=== PATIENT | female | born 1965 | race Caucasian/White ===

== ENCOUNTER 2016-07-20 17:09 | Inpatient (IN) | payer OTHER ==
[~2016-07-20] VITALS: Ht 152.4 cm; Wt 40.4 kg
[~2016-07-20 17:09] MED LIST: ADVAIR 100/501 EA INH; ADVAIR 250/501 EA INH; ALBUTEROL0.09 MG/A2 IH; ALBUTEROL2.5 MG/0.5 INH; AMOXICILLIN500 MG PO; ANTIVERT/2525 MG PO; ASPIRIN CHEWABL81 MG PO; Albuterol Sulfat3 M2 IH; BRIN10TA PO; CARAFATE1 G1 PO; CIPROFLOXACIN500 MG PO; CLOPIDOGREL75 MG PO; COLACE100 MG PO; COMPAZINE10 M1 PO; DAYPRO600 M1 PO; DELTASONE10 MG PO; DOXYCYCLINE100 M3 PO; EFFEXOR; EFFEXOR XR150 M1 PO; EFFEXOR XR150 MG PO; EFFEXOR XR37.5 M1 PO; EFFEXOR50 MG PO; FIORICET 325 MG1 TAB PO; FLAGYL500 MG PO; FLONASE ALLERG9.9 ML NAS; Fioricet 325 MG1 TAB PO; IBU-4400 MG PO; K-Dur 20MEQ20 MEQ PO; KEFLEX500 MG PO; KLONOPIN1 M1 PO; KLONOPIN1 MG; LIDEX 0.05% CRE15 GM T; LINZESS 145 MCG; LINZESS145 MC1 PO; LISINOPRIL20 MG PO; LOMOTIL 0.025 M1 TA1 PO; MARINOL10 MG PO; MARINOL5 MG PO; MEDROL DOSEPAK4 MG PO; MOTRIN800 MG PO; NEURONTIN400 MG PO; NEURONTIN600 MG PO; OXYCODONE HCL10 M1 PO; PHENERGAN12.5 M1 PO; PHENERGAN25 M1 PO; PLAVIX75 M1 PO; PREDNISONE10 MG PO; PRILOSEC20 M1 PO; PROAIR HFA0.09 MG/AC IH; PROVENTIL0.09 MG/AC IH; REGLAN10 M1 PO; ROBAXIN750 MG PO; ROBITUSSIN AC 110 ML PO; ROBITUSSIN-AC 160 ML PO; SPIRIVA 5 CAPS18 MCG INH; SPIRIVA18 MCG PO; STRESS PO; TESSALON PERLE100 MG PO; TOPROL XL25 MG PO; TRAMADOL HCL50 MG PO; TRAZODONE100 MG PO; ULTRAM50 MG PO; VICODIN 5/500 505 MG PO; VICODIN 500 MG-1 TAB PO; VITAMIN D50000 I3 PO; WARFARIN SODIUM1 MG PO; WYMOX500 MG PO; ZITHROMAX Z PA250 MG PO; ZITHROMAX250 MG PO; ZOFRAN ODT4 MG SL; ZOFRAN4 MG PO; ZOFRAN8 M1 PO; ZYPREXA20 MG; ZYPREXA20 MG PO; [UNRECOGNIZED DRUG - OTHER] PO
[2016-07-20 17:19] VITALS: BP 128/76
[2016-07-20 18:01] LABS: BASO % 0.2 % (0.0-1.0); HEMATOCRIT 36.9 % (37.0-47.0); HEMOGLOBIN 12.9 g/dl (12.0-16.0); LYMPH # 0.6 10*3/uL (1.3-4.4); LYMPH % 9.6 % (27.0-41.0); MEAN CELL VOLUME 92.3 fl (81.0-99.0); MEAN CORPUSCULAR HGB 32.3 pg (27.0-31.0); MEAN PLATELET VOLUME 9.9 fl (9.6-12.3); MONO # 0.1 10*3/uL (0.1-1.0); NEUT # 5.8 10*3/uL (2.3-7.9); NEUT % 87.9 % (47.0-73.0); PLATELET COUNT AUTOMATED 228 10*3/uL (130-400); RED CELL DISTRI WIDTH 15.4 % (0-14.5); WHITE BLOOD COUNT 6.5 10*3/uL (4.8-10.8)
[2016-07-20 18:12] LABS: PROTHROMBIN TIME 10.4 SECONDS (9.0-12.4)
[2016-07-20 18:19] LABS: ALBUMIN 4.2 gm/dl (3.1-4.5); ALKALINE PHOSPHATASE 102 U/L (45-117); BILIRUBIN, TOTAL 0.8 mg/dl (0.2-1.0); BUN 10 mg/dl (7-24); C-REACTIVE PROTEIN < 0.29 MG/DL (0-0.3); CARBON DIOXIDE 27 mmol/L (21-32); CHLORIDE 100 mmol/L (98-107); CKMB 0.8 ng/ml (0.5-3.6); CPK 34 U/L (26-192); EST GLOM FILT AFRICAN AMERICAN > 60 ml/min; GLUCOSE 147 mg/dL (65-99); MAGNESIUM 1.6 mg/dL (1.5-2.1); POTASSIUM 3.3 mmol/L (3.5-5.1); SGOT/AST 23 IU/L (3-35); SGPT/ALT 20 U/L (12-78); SODIUM 141 mmol/L (136-145); TOTAL PROTEIN 7.4 gm/dL (6.4-8.2); TROPONIN I < 0.015 ng/ml (<0.045)
[2016-07-20 19:20] LABS: BILIRUBIN NEGATIVE (NEGATIVE); BLOOD NEGATIVE (NEGATIVE); CLARITY SL CLOUDY (CLEAR); COLOR YELLOW (YELLOW); GLUCOSE TRACE (NEGATIVE); KETONE 3+ (NEGATIVE); LEUKO ESTERASE NEGATIVE (NEGATIVE); NITRITE NEGATIVE (NEGATIVE); PH 7.5 (5.0-9.0); PROTEIN TRACE (NEGATIVE); UROBILINOGEN 0.2 E.U./dl (0.2-1.0)
[2016-07-20 19:26] LABS: BACTERIA 1+; EPITHELIAL CELLS 20-25; URINE REFLEX COMMENT NO (NO); WBC 0-2 wbc/hpf (0-5)
[2016-07-20 20:00] VITALS: BP 146/81
[2016-07-20 22:42] VITALS: BP 115/85
[2016-07-20 23:00] VITALS: BP 108/81
[2016-07-20] MEDS ORDERED: PROAIR HFA8.5 GM INH (23:07)
[2016-07-20] MEDS ORDERED: ENSURE LIQUID237 ML PO (23:08)
[2016-07-20] MEDS ORDERED: STRESS PO (23:10)
[2016-07-20] MEDS ORDERED: ZINC PO (23:10)
[2016-07-20] MEDS ORDERED: NATURE'S BLEND F1 MG PO (23:10)
[2016-07-20] MEDS ORDERED: Ventolin 02.5 MG/3 M INH (23:11)
[2016-07-20] MEDS ORDERED: Lopressor25 MG PO (23:14)
[2016-07-20] MEDS ORDERED: ACETAMINOPHEN/O1 TA1 PO (23:16)
[2016-07-20] MEDS ORDERED: EMLA 2.5% 30GM30 GM T (23:17)
[2016-07-20] MEDS ORDERED: NOVAPLUS LIDOCAINE5% TP (23:18)
[2016-07-21 06:26] LABS: BASO % 0.1 % (0.0-1.0); HEMATOCRIT 35.9 % (37.0-47.0); HEMOGLOBIN 12.6 g/dl (12.0-16.0); LYMPH # 0.9 10*3/uL (1.3-4.4); LYMPH % 12.7 % (27.0-41.0); MEAN CELL VOLUME 92.3 fl (81.0-99.0); MEAN CORPUSCULAR HGB 32.4 pg (27.0-31.0); MEAN CORPUSCULAR HGB CONC 35.1 g/dl (33.0-37.0); MEAN PLATELET VOLUME 10.2 fl (9.6-12.3); MONO # 0.1 10*3/uL (0.1-1.0); MONO % 1.4 % (3.0-9.0); NEUT % 85.5 % (47.0-73.0); PLATELET COUNT AUTOMATED 220 10*3/uL (130-400); RED BLOOD COUNT 3.89 10*6/uL (4.10-5.10); RED CELL DISTRI WIDTH 15.5 % (0-14.5)
[2016-07-21 07:01] LABS: ALKALINE PHOSPHATASE 107 U/L (45-117); BILIRUBIN, TOTAL 0.8 mg/dl (0.2-1.0); BUN 7 mg/dl (7-24); CARBON DIOXIDE 27 mmol/L (21-32); CHLORIDE 100 mmol/L (98-107); CHOLESTEROL 218 mg/dL (<200); EST GLOM FILT AFRICAN AMERICAN > 60 ml/min; GLUCOSE 114 mg/dL (65-99); HDL CHOLESTEROL 84 mg/dl (40-60); LDL CHOLESTEROL 111 mg/dL (9-159); MAGNESIUM 1.3 mg/dL (1.5-2.1); PHOSPHOROUS 2.5 mg/dL (2.5-4.9); POTASSIUM 3.5 mmol/L (3.5-5.1); SGOT/AST 19 IU/L (3-35); SGPT/ALT 22 U/L (12-78); SODIUM 137 mmol/L (136-145); TOTAL PROTEIN 7.6 gm/dL (6.4-8.2); TRIGLYCERIDES 114 mg/dl (<150); VLDL CHOLESTEROL 23 mg/dL (6-40)
[2016-07-21 07:02] LABS: HEMOGLOBIN A1c 5.7 % (4.8-5.6)
[2016-07-21 07:07] LABS: PROTHROMBIN TIME 10.2 SECONDS (9.0-12.4)
[2016-07-21 07:57] LABS: VITAMIN D, 25-HYDROXY 47.9 ng/mL (30-100)
[2016-07-21 08:00] VITALS: BP 156/72
[2016-07-21 08:00] LABS: FOLIC ACID > 24.00 ng/mL (>5.38)
[2016-07-21 12:00] VITALS: BP 120/79
[2016-07-21 16:00] VITALS: BP 128/80
[2016-07-21 20:00] VITALS: BP 146/81
[2016-07-22] VITALS: BP 153/81
[2016-07-22 08:00] VITALS: BP 134/88
[2016-07-22 12:00] VITALS: BP 144/69
[2016-07-22] MEDS ORDERED: PERCOCET 325 MG1 TA7 PO (15:57)
[2016-07-22 16:00] VITALS: BP 125/79
[2016-07-22 20:00] VITALS: BP 158/71
[2016-07-23] VITALS: BP 152/89
[2016-07-23 06:04] LABS: BASO % 0.6 % (0.0-1.0); EOS % 0.3 % (1.0-4.0); HEMATOCRIT 32.7 % (37.0-47.0); HEMOGLOBIN 11.5 g/dl (12.0-16.0); LYMPH # 1.5 10*3/uL (1.3-4.4); LYMPH % 41.7 % (27.0-41.0); MEAN CELL VOLUME 92.9 fl (81.0-99.0); MEAN CORPUSCULAR HGB 32.7 pg (27.0-31.0); MEAN CORPUSCULAR HGB CONC 35.2 g/dl (33.0-37.0); MEAN PLATELET VOLUME 10.3 fl (9.6-12.3); MONO # 0.1 10*3/uL (0.1-1.0); MONO % 3.4 % (3.0-9.0); NEUT # 1.9 10*3/uL (2.3-7.9); NEUT % 53.7 % (47.0-73.0); PLATELET COUNT AUTOMATED 182 10*3/uL (130-400); RED BLOOD COUNT 3.52 10*6/uL (4.10-5.10); RED CELL DISTRI WIDTH 14.7 % (0-14.5); WHITE BLOOD COUNT 3.6 10*3/uL (4.8-10.8)
[2016-07-23 06:26] LABS: EST GLOM FILT AFRICAN AMERICAN > 60 ml/min
[2016-07-23 08:00] VITALS: BP 130/76; BP 93/66
[2016-07-23 12:00] VITALS: BP 126/32
[2016-07-23 16:00] VITALS: BP 117/66
[2016-07-23 20:00] VITALS: BP 137/65
[2016-07-24 00:11] VITALS: BP 114/60
[2016-07-24 05:58] LABS: BASO % 0.6 % (0.0-1.0); EOS % 1.2 % (1.0-4.0); LYMPH # 1.3 10*3/uL (1.3-4.4); LYMPH % 37.1 % (27.0-41.0); MEAN CORPUSCULAR HGB 31.9 pg (27.0-31.0); MEAN CORPUSCULAR HGB CONC 34.7 g/dl (33.0-37.0); MEAN PLATELET VOLUME 9.8 fl (9.6-12.3); MONO # 0.1 10*3/uL (0.1-1.0); MONO % 3.5 % (3.0-9.0); PLATELET COUNT AUTOMATED 141 10*3/uL (130-400); RED BLOOD COUNT 2.88 10*6/uL (4.10-5.10); RED CELL DISTRI WIDTH 14.6 % (0-14.5); WHITE BLOOD COUNT 3.4 10*3/uL (4.8-10.8)
[2016-07-24 06:01] LABS: HEMATOCRIT 26.5 % (37.0-47.0); HEMOGLOBIN 9.2 g/dl (12.0-16.0)
[2016-07-24 08:00] VITALS: BP 132/66
[2016-07-24 12:00] VITALS: BP 116/57
[2016-07-24 16:00] VITALS: BP 151/78
[2016-07-24 20:00] VITALS: BP 132/72
[2016-07-25] VITALS: BP 103/49
[2016-07-25 06:50] LABS: BASO % 0.7 % (0.0-1.0); EOS % 1.4 % (1.0-4.0); HEMATOCRIT 25.5 % (37.0-47.0); HEMOGLOBIN 8.7 g/dl (12.0-16.0); LYMPH # 1.2 10*3/uL (1.3-4.4); LYMPH % 42.9 % (27.0-41.0); MEAN CELL VOLUME 94.4 fl (81.0-99.0); MEAN CORPUSCULAR HGB 32.2 pg (27.0-31.0); MEAN CORPUSCULAR HGB CONC 34.1 g/dl (33.0-37.0); MEAN PLATELET VOLUME 10.1 fl (9.6-12.3); MONO # 0.2 10*3/uL (0.1-1.0); MONO % 5.2 % (3.0-9.0); NEUT # 1.4 10*3/uL (2.3-7.9); NEUT % 49.5 % (47.0-73.0); PLATELET COUNT AUTOMATED 154 10*3/uL (130-400); RED CELL DISTRI WIDTH 14.9 % (0-14.5); WHITE BLOOD COUNT 2.9 10*3/uL (4.8-10.8)
[2016-07-25 08:00] VITALS: BP 114/62
[2016-07-25] MEDS ORDERED: CIPRO500 MG PO (10:53)
[2016-07-25] MEDS ORDERED: FLAGYL500 MG PO (10:53)
[2016-07-25 12:00] VITALS: BP 101/56
== END 2016-07-25 12:00 | disposition home or self-care (01) | DRG 872 ==
LOC: ED 17:09 → EDHOLD 21:21 → 5E 21:21
PROVIDERS: Emergency Medicine; Family Medicine; Internal Medicine; Internal Medicine Hospice and Palliative Medicine
DX: A41.9 Sepsis, unspecified organism (principal); C34.11 Malignant neoplasm of upper lobe, right bronchus or lung; E44.0 Moderate protein-calorie malnutrition; K51.00 Ulcerative (chronic) pancolitis without complications; E83.42 Hypomagnesemia; F32.9 Major depressive disorder, single episode, unspecified; D64.9 Anemia, unspecified; J44.9 Chronic obstructive pulmonary disease, unspecified; Z68.1 Body mass index [BMI] 19.9 or less, adult; E87.6 Hypokalemia; F43.10 Post-traumatic stress disorder, unspecified; R82.4 Acetonuria; D72.810 Lymphocytopenia; R73.9 Hyperglycemia, unspecified; F41.9 Anxiety disorder, unspecified; M19.90 Unspecified osteoarthritis, unspecified site; F17.210 Nicotine dependence, cigarettes, uncomplicated; K21.9 Gastro-esophageal reflux disease without esophagitis; Z92.21 Personal history of antineoplastic chemotherapy; Z90.710 Acquired absence of both cervix and uterus; Z82.49 Family history of ischemic heart disease and other diseases of the circulatory system; Z71.6 Tobacco abuse counseling; Z82.3 Family history of stroke; Z88.2 Allergy status to sulfonamides; Z88.8 Allergy status to other drugs, medicaments and biological substances; Z79.899 Other long term (current) drug therapy

== ENCOUNTER → 2016-07-30 | Outpatient (CLI) | payer OTHER ==
[~2016-07-30] MED LIST changes: +ACETAMINOPHEN/O1 TA1 PO; +CIPRO500 MG PO; +EMLA 2.5% 30GM30 GM T; +ENSURE LIQUID237 ML PO; +Lopressor25 MG PO; +NATURE'S BLEND F1 MG PO; +NOVAPLUS LIDOCAINE5% TP; +PERCOCET 325 MG1 TA7 PO; +PROAIR HFA8.5 GM INH; +Ventolin 02.5 MG/3 M INH; +ZINC PO
[2016-07-30 18:08] LABS: HEMATOCRIT 36.2 % (37.0-47.0); HEMOGLOBIN 12.1 g/dl (12.0-16.0); MEAN CELL VOLUME 100.6 fl (81.0-99.0); MEAN CORPUSCULAR HGB 33.6 pg (27.0-31.0); MEAN CORPUSCULAR HGB CONC 33.4 g/dl (33.0-37.0); MEAN PLATELET VOLUME 9.6 fl (9.6-12.3); PLATELET COUNT AUTOMATED 247 10*3/uL (130-400); RED CELL DISTRI WIDTH 17.1 % (0-14.5); WHITE BLOOD COUNT 3.5 10*3/uL (4.8-10.8)
[2016-07-30 20:09] LABS: LYMPHOCYTE # 2.4 10*3/uL (1.3-4.4); MONOCYTE # 0.4 10*3/uL (0.1-1.0); NEUTROPHIL # 0.7 10*3/uL (2.3-7.9); NEUTROPHILS 21 % (47-73); PLATELET SUFFICIENCY NORMAL (NORMAL); POLYCHROMASIA SLIGHT; TOTAL CELLS COUNTED 100 #CELLS
== END | disposition home or self-care (01) ==
LOC: LAB 17:07
PROVIDERS: Internal Medicine Hematology & Oncology
DX: C34.11 Malignant neoplasm of upper lobe, right bronchus or lung (principal)

== ENCOUNTER → 2016-08-13 | Outpatient (CLI) | payer OTHER ==
[2016-08-13 17:16] LABS: BASO % 0.4 % (0.0-1.0); EOS # 0.1 10*3/uL (0.0-0.4); EOS % 1.1 % (1.0-4.0); HEMATOCRIT 37.2 % (37.0-47.0); HEMOGLOBIN 12.5 g/dl (12.0-16.0); LYMPH # 2.4 10*3/uL (1.3-4.4); LYMPH % 52.7 % (27.0-41.0); MEAN CELL VOLUME 100.8 fl (81.0-99.0); MEAN CORPUSCULAR HGB 33.9 pg (27.0-31.0); MEAN CORPUSCULAR HGB CONC 33.6 g/dl (33.0-37.0); MEAN PLATELET VOLUME 9.5 fl (9.6-12.3); MONO # 0.3 10*3/uL (0.1-1.0); MONO % 6.5 % (3.0-9.0); NEUT # 1.8 10*3/uL (2.3-7.9); NEUT % 39.1 % (47.0-73.0); PLATELET COUNT AUTOMATED 195 10*3/uL (130-400); RED BLOOD COUNT 3.69 10*6/uL (4.10-5.10); RED CELL DISTRI WIDTH 15.6 % (0-14.5); WHITE BLOOD COUNT 4.6 10*3/uL (4.8-10.8)
[2016-08-13 17:31] LABS: ALBUMIN 3.7 gm/dl (3.1-4.5); ALKALINE PHOSPHATASE 91 U/L (45-117); BILIRUBIN, TOTAL 0.2 mg/dl (0.2-1.0); BUN 11 mg/dl (7-24); CARBON DIOXIDE 33 mmol/L (21-32); CHLORIDE 104 mmol/L (98-107); EST GLOM FILT AFRICAN AMERICAN > 60 ml/min; GLUCOSE 69 mg/dL (65-99); POTASSIUM 3.9 mmol/L (3.5-5.1); SGOT/AST 14 IU/L (3-35); SGPT/ALT 13 U/L (12-78); SODIUM 144 mmol/L (136-145); TOTAL PROTEIN 7.1 gm/dL (6.4-8.2)
== END | disposition home or self-care (01) ==
LOC: LAB 16:40
PROVIDERS: Internal Medicine Hematology & Oncology
DX: C34.11 Malignant neoplasm of upper lobe, right bronchus or lung (principal)

== ENCOUNTER 2016-08-26 21:03 | Emergency (ER) | payer OTHER ==
[~2016-08-26] VITALS: Ht 152.4 cm; Wt 39.9 kg
[2016-08-26] MEDS ORDERED: ONDANSETRON HYDR4 MG PO (21:38)
[2016-08-26 22:06] LABS: BASO % 0.2 % (0.0-1.0); HEMATOCRIT 41.3 % (37.0-47.0); HEMOGLOBIN 14.1 g/dl (12.0-16.0); LYMPH # 0.6 10*3/uL (1.3-4.4); LYMPH % 12.8 % (27.0-41.0); MEAN CORPUSCULAR HGB 33.8 pg (27.0-31.0); MEAN CORPUSCULAR HGB CONC 34.1 g/dl (33.0-37.0); MEAN PLATELET VOLUME 9.3 fl (9.6-12.3); MONO # 0.2 10*3/uL (0.1-1.0); MONO % 4.6 % (3.0-9.0); NEUT # 3.9 10*3/uL (2.3-7.9); PLATELET COUNT AUTOMATED 323 10*3/uL (130-400); RED BLOOD COUNT 4.17 10*6/uL (4.10-5.10); RED CELL DISTRI WIDTH 14.9 % (0-14.5); WHITE BLOOD COUNT 4.8 10*3/uL (4.8-10.8)
[2016-08-26 22:24] LABS: ALBUMIN 4.2 gm/dl (3.1-4.5); ALKALINE PHOSPHATASE 124 U/L (45-117); BILIRUBIN, TOTAL 0.3 mg/dl (0.2-1.0); BUN 8 mg/dl (7-24); CARBON DIOXIDE 27 mmol/L (21-32); CHLORIDE 104 mmol/L (98-107); EST GLOM FILT AFRICAN AMERICAN > 60 ml/min; GLUCOSE 144 mg/dL (65-99); POTASSIUM 3.8 mmol/L (3.5-5.1); SGOT/AST 20 IU/L (3-35); SGPT/ALT 19 U/L (12-78); SODIUM 141 mmol/L (136-145); TOTAL PROTEIN 7.9 gm/dL (6.4-8.2)
[2016-08-26] MEDS ORDERED: PHENERGAN25 MG R (22:54)
== END 2016-08-26 23:29 | disposition home or self-care (01) ==
LOC: ED 21:03
PROVIDERS: Nurse Practitioner Family
DX: R11.2 Nausea with vomiting, unspecified (principal); F17.210 Nicotine dependence, cigarettes, uncomplicated; F41.9 Anxiety disorder, unspecified; F32.9 Major depressive disorder, single episode, unspecified; K21.9 Gastro-esophageal reflux disease without esophagitis; I10 Essential (primary) hypertension; M19.90 Unspecified osteoarthritis, unspecified site; F12.10 Cannabis abuse, uncomplicated; Z88.1 Allergy status to other antibiotic agents; Z88.2 Allergy status to sulfonamides; Z79.899 Other long term (current) drug therapy

== ENCOUNTER → 2016-09-10 | Outpatient (CLI) | payer OTHER ==
[~2016-09-10] MED LIST changes: +ONDANSETRON HYDR4 MG PO; +PHENERGAN25 MG R
[2016-09-10 17:59] LABS: BASO % 0.5 % (0.0-1.0); EOS % 0.2 % (1.0-4.0); HEMATOCRIT 38.7 % (37.0-47.0); LYMPH # 2.2 10*3/uL (1.3-4.4); LYMPH % 55.4 % (27.0-41.0); MEAN CELL VOLUME 98.7 fl (81.0-99.0); MEAN CORPUSCULAR HGB 33.2 pg (27.0-31.0); MEAN CORPUSCULAR HGB CONC 33.6 g/dl (33.0-37.0); MEAN PLATELET VOLUME 9.9 fl (9.6-12.3); MONO # 0.1 10*3/uL (0.1-1.0); MONO % 2.7 % (3.0-9.0); NEUT # 1.6 10*3/uL (2.3-7.9); PLATELET COUNT AUTOMATED 221 10*3/uL (130-400); RED BLOOD COUNT 3.92 10*6/uL (4.10-5.10); RED CELL DISTRI WIDTH 13.5 % (0-14.5)
[2016-09-10 18:29] LABS: BUN 10 mg/dl (7-24); CHOLESTEROL 197 mg/dL (<200); EST GLOM FILT AFRICAN AMERICAN > 60 ml/min; HDL CHOLESTEROL 79 mg/dl (40-60); LDL CHOLESTEROL 96 mg/dL (9-159); TRIGLYCERIDES 109 mg/dl (<150); VLDL CHOLESTEROL 22 mg/dL (6-40)
== END | disposition home or self-care (01) ==
LOC: LAB 17:04
PROVIDERS: Internal Medicine Hematology & Oncology
DX: C34.11 Malignant neoplasm of upper lobe, right bronchus or lung (principal); F33.3 Major depressive disorder, recurrent, severe with psychotic symptoms; E55.9 Vitamin D deficiency, unspecified

== ENCOUNTER → 2016-11-05 | Outpatient (CLI) | payer OTHER | END | disposition home or self-care (01) | LOC: US 12:23 | DX: M79.604 Pain in right leg (principal) ==

== ENCOUNTER → 2016-12-19 | Outpatient (CLI) | payer OTHER | END | disposition home or self-care (01) | LOC: US 10:30 | DX: I73.9 Peripheral vascular disease, unspecified (principal); Z87.891 Personal history of nicotine dependence ==

== ENCOUNTER 2017-04-06 11:43 | Inpatient (IN) | payer OTHER ==
[~2017-04-06] VITALS: Ht 154.9 cm; Wt 41.3 kg
[2017-04-06] VITALS (7 sets, daily range): BP systolic 100–137; BP diastolic 64–94
--- NOTE | ~2017-04-06 | EKG ---
[place], [place] ELECTROCARDIOGRAM REPORT NAME: JUSTIN VERGARA UNIT #: [id number] ROOM: 520 DOCTOR: EPHRAIM REYES MD,AUDREY BIRTHDATE: [birth year] DOS: 04/10/2017 TIME: 10:42 a.m. Sinus tachycardia noted. Heart rate of 103 beats per minute with possible consideration of the LVH based on the chest leads. AUDREY YE MD CM:EKGRPT:ELECTROCARDIOGRAM REPORT 1819 [id number] AUDREY REYES MD
--- NOTE | ~2017-04-06 | PROC NOTE ---
[place], [place] PROCEDURE NOTE [id number] UNIT #: [id number] ROOM: 520 DOCTOR: EPHRAIM REYES MD,AUDREY BIRTHDATE: [birth year] DOS: 04/11/2017 PROCEDURE: Bronchoscopy note. PREOPERATIVE DIAGNOSES: The patient with severe nonresolving cough with current administered pneumonia and history of lung cancer. POSTOPERATIVE DIAGNOSES: Evidence of previous right upper lobectomy for the patient was noted with evidence of acute pneumonia, severe impaction and mucus plug and severe pneumonia involving the left endobronchial tree. PROCEDURE DESCRIPTION: Informed consent obtained for the patient. She was brought to the OR and placed in supine physician. Consultation administered by the Anesthesia Department. After achieving proper sedation, airway introduced into the mouth. Bronchoscope advanced to the airway into laryngeal area. Epiglottis and vocal cords were seen. The bronchoscope advanced to the vocal cord into tracheal lumen. Tracheal lumen shows moderate amount of bilious secretion suctioned out with the help of normal saline wash. After that, the bronchoscope further advanced to the fran level. The evidence of right upper lobectomy. Large amount of secretion for patient was present in the left endobronchial tree for this patient, which were noted quite purulent and impaction of the left upper lingula and lower lobe bronchi. All secretions suctioned out. Small amount of mucus impaction noted right middle and right lower lobe cleared of normal saline wash. No endobronchial obstructive lesions were noted. Procedure well tolerated by the patient without any difficulty. Postoperative finding will be discussed with the patient once the patient recovers the effects of acute sedation. AUDREY YE MD CM:PROCNOTE:PROCEDURE NOTE [id number] AUDREY REYES MD
--- NOTE | ~2017-04-06 | CON ---
[place], [place] REPORT OF CONSULTATION NAME: JUSTIN VERGARA [facility] #: [id number] UNIT #: [id number] ROOM: 520 DOCTOR: AUDREY STRICKLAND MD BIRTHDATE: [birth year] DOS: 04/07/2017 PULMONARY CONSULTATION, EVALUATION AND MANAGEMENT CONSULTATION REQUESTED BY: Hospitalist services. REASON FOR CONSULTATION: To assess the patient for current chest pain with the pneumonia and other abnormal respiratory symptoms. HISTORY OF PRESENT ILLNESS: This is a 52-year-old white female who is known to me with past history of non-small cell lung cancer of right upper lung, underwent surgical treatment previously complicated with MRSA pneumonia and a localized infection in the right upper chest treated with pigtail catheter insertion and the antibiotics. The patient presented to the hospital as the patient started with having increased symptoms of coughing, chest congestion, and shortness of breath for the past few days. The patient was also described symptoms of having significant pain which she described in the left side of the chest initially in the past, later on the lateral portion of the chest wall without any radiation. The pain is described as severe on scale of 1 to 10 up to 8. The pain was described to be worsened with the deep inspiratory effort. She denies symptoms of hemoptysis. The patient does report some symptoms of wheezing along with the symptoms as well. REVIEW OF SYSTEMS: CONSTITUTIONAL: She does complain of fatigue and tiredness and symptoms of fever or chills. Denies any symptoms of abnormal weight loss. EYES: Denies any burning, redness, or tenderness. EAR, NOSE, AND THROAT: No symptoms sore throat, hoarseness, otalgia, and postnasal drainage. CARDIOVASCULAR: Denies any anginal pain, edema or pain of the lower extremities. GASTROINTESTINAL: Denies any dysphagia, nausea, vomiting, diarrhea, abdominal pain, hematemesis, melena, or hematochezia. SKIN: Denies any lesions or rashes. Remaining systems were reviewed with the patient, they were noted all negative. PAST MEDICAL HISTORY: 1. History of centrilobular emphysema with COPD. 2. Uncomplicated severe persistent bronchial asthma. 3. PTSD. 4. Chronic migraine headache. 5. Bipolar disorder. 6. Irritable bowel syndrome. 7. Restless leg syndrome. 8. History of hypercoagulable disorder. 9. History of lung cancer, status post lobectomy in 2016. 10. Multiple abdominal surgeries, complicated after hysterectomy. PAST SURGICAL HISTORY: [place], [place] REPORT OF CONSULTATION [id number] UNIT #: [id number] ROOM: [facility] DOCTOR: AUDREY STRICKLAND MD BIRTHDATE: [birth year] 1. Peripheral artery intervention and iliac artery stent insertion. 2. Hysterectomy. 3. Several abdominal surgeries for the management of wound and others in the abdomen in the past. 4. Tubal ligation. 5. Tonsillectomy. 6. Traumatic pneumothorax after the fall on the right side. 7. Therapeutic bronchoscopy in the past. 8. CT-guided needle aspiration biopsy of the right upper lung pulmonary nodule in 2016. 9. Wedge resection of the right upper lung nodule noted as a non-small cell lung cancer in 2016 followed by left upper lobectomy that was done in [facility]. The patient did not require any further intervention. The patient has a lung cancer. The tumor was staged as T2a N0 Mx. 10. Pigtail catheter insertion and drainage of an abscess in the right upper lobe post-surgery in 2016 as well. SOCIAL HISTORY: The patient has 5 children. Smoking history was noted as teenager, pack of cigarettes per day and stated no smoking cigarettes recently. Denies history of alcohol use, illicit drug use. FAMILY HISTORY: The patient's mother at age of 65 years complication of acute stroke. Father at age 50 years complication related to acute myocardial infarction. MEDICATIONS: Current administered medication noted as use of vitamin D, methimazole, Neutra-Phos, lidocaine patch, multivitamin, folic acid, gabapentin, Effexor, Lovenox for DVT prophylaxis, omeprazole, Remeron, Plavix, Mucinex, Dulera, DuoNeb q. 4 hours, IV Levaquin, Robinul, Klonopin and other p.r.n. medications administration. DRUG ALLERGIES: 1. SULFA DRUGS. 2. IMITREX. PHYSICAL EXAMINATION: GENERAL: A 52 years old female who has been currently noted to be awake and alert without any distress, sitting on the bed. Height of 5 feet 1 inch, weight of 91 pounds, BMI 17.2. VITAL SIGNS: Normal temperature noted since admission, respiratory rate 18 to 22, heart rate of 97 to 135, sinus tachycardia which is resolved at this time. The blood pressure ranged between ____. The intake recorded as 1800 to 1900 mL in the past 24 hours, pulse ox saturation on room air was 92% saturation recorded. HEENT: Head was atraumatic. Eyes nonicterus. Oral mucosa moist. NECK: Supple. CARDIOVASCULAR: S1, S2 audible. LUNGS: Noted with scattered crackles in the left mid and lower lung was noted. There was no wheezing. ABDOMEN: Flat, soft, nontender. Bowel sounds present. There was no [place], [place] REPORT OF CONSULTATION NAME: JUSTIN VERGARA UNIT #: [id number] ROOM: 520 DOCTOR: AUDREY STRICKLAND MD BIRTHDATE: [birth year] tenderness. EXTREMITIES: Without any edema, clubbing, cyanosis. CENTRAL NERVOUS SYSTEM: Cranial nerves 2 to 12 intact. No focal deficit. MUSCULOSKELETAL: Noted without any acute deformities. SKIN: Visible skin with no lesions or rashes. LABORATORY DATA: CBC 04/06/2017, WBC count of 15.7, hemoglobin and hematocrit normal, platelet count was normal. Differential noted 81.9% neutrophils. The lactic acid 2.5. PT/PTT were noted normal yesterday on admission. The BMP on admission yesterday normal BUN, creatinine, glucose 144, total protein 8.5. D-dimer 3.01 recorded yesterday as well. The troponin normal yesterday. Influenza A and B, nasal washing antigen negative. CBC today, WBC count 11.3, hemoglobin 11.3, hematocrit 33.6, platelet count of 190,000. The BMP on 04/07/2017, BUN and creatinine was normal. Chest x-ray 1 view, which was done and reviewed personally from the PACS images as the CT scan of the chest was also personally reviewed shows postoperative changes noted in the right lung from the past right upper lobectomy with mild elevation of the hemidiaphragm; otherwise, no acute infiltration. The CTA of the chest was done that does not show any evidence of pulmonary embolism. Postoperative changes noted in the right upper lung as well. Patchy infiltration present in the right lower lobe as well as in the left lower lobe. The nodular appearance was noted with some irregularity as well. The abnormality was noted much marked on the left lower than the right lower lobe. IMPRESSION: 1. The patient has been currently admitted to the hospital with pleuritic chest pain with current abnormality, radiologically consistent with possibility of acute infection with patchy area of infiltration and distribution as well. There was no evidence of pulmonary embolism. 2. Past history of right upper lobectomy for the non-small cell lung cancer, stage 1, as moderately differentiated adenocarcinoma with the total size measured at that time 1.4 x 1 cm in size. The current nodular appearance for this patient's infection remains as one primary concern. However, the malignancy of metastatic cancer cannot be completely excluded and clearly for monitor for the current CT scan finding will be done in the future. Followup CT scan short-term to document the resolution. 3. History of chronic nicotine abuse with COPD and bronchial asthma, does not seem to have any acute exacerbation at the present time. 4. History of migraine headache and tobacco use, previously known as well. PLAN OF TREATMENT: Continue the current antibiotic, the patient has Levaquin. Obtain the urine for legionella antigen for this patient as well. Also get the workup for the vasculitis because the nodular appearance as the patient's part of the workup, other chronic infection, and assessment as well. Additional treatment changes need to be made based on progression of the illness. Order the sputum for Gram stain and culture as well. Supportive therapy, plan of management and other care and treatment. Usual treatment, all other supportive, plan of management as well. Monitor results of the blood cultures. Additional changes in the treatment will be done based on the progression of the illness. [place], [place] REPORT OF CONSULTATION NAME: GEN URSULAMALISSA Morse UNIT #: [id number] ROOM: [facility] DOCTOR: AUDREY STRICKLAND MD BIRTHDATE: [birth year] Thanks for allowing me to participate in the care of this patient. AUDREY YE MD CM:CONSTR:REPORT OF CONSULTATION 1703 04/08/17 0748 interface
--- NOTE | ~2017-04-06 | PR ---
[place], [place] PROGRESS NOTE NAME: JUSTIN VERGARA UNIT #: [id number] ROOM: 520 DOCTOR: EPHRAIM REYES MD,AUDREY BIRTHDATE: [birth year] DOS: 04/12/2017 SUBJECTIVE: She has been showing continued gradual reduction and improvement in respiratory symptom. Bronchoscopy done yesterday for the patient with reduction of the cough is noted, pain in the chest was still described intermittently. The pain was described in left side of the chest. OBJECTIVE: VITAL SIGNS: For the patient which were recorded, the patient showed the temperature noted as normal, respiratory rate 20, heart rate of 82, blood pressure 98/66, 122/69. The pulse oxygen saturation of the patient on room air was 95-96% saturation. HEENT: No acute change. NECK: Supple. CARDIOVASCULAR: S1, S2 audible. LUNGS: Crackles in the left lung base. There was no wheezing. ABDOMEN: Soft, nontender. EXTREMITIES: Without any acute edema. CENTRAL NERVOUS SYSTEM: Cranial nerves 2-12 intact. SKIN: No lesions or rashes. MUSCULOSKELETAL: Without any acute deformities. LABORATORY DATA: Gram stain bronchial washing from yesterday was reviewed, shows moderate white blood cell, few budding yeast, moderate growth of yeast isolation. Preliminary final culture results pending. Vancomycin trough level noted at 8.1, which is subtherapeutic. Blood culture from the 30th, no bacterial growth, final results. The CMP for the patient, BUN normal, creatinine normal. Albumin 2.8. CBC for the patient essentially noted as normal. IMPRESSION: 1. The patient with acute pneumonia for this patient with methicillin-resistant Staphylococcus aureus. 2. Obtained for the patient related to current acute pneumonia. 3. History of chronic obstructive pulmonary disease and bronchial asthma, chronic, remains stable. 4. Past history of nicotine dependence as well. PLAN OF MANAGEMENT: The patient will be switched to the Zyvox for the patient orally and if she tolerate ____ may be discharged home tomorrow morning depends on further improvement in symptom. Continue in the meantime other supportive plan of management and care. Vancomycin will be discontinued. Other supportive therapy, plan of management care plan. Usual treatment and other care. [place], [place] PROGRESS NOTE NAME: JUSTIN VERGARA UNIT #: [id number] ROOM: 520 DOCTOR: AUDREY STRICKLAND MD BIRTHDATE: [birth year] AUDREY YE MD CM:PNWENDY [id number] AUDREY REYES MD 04/13/17 0347 interface
--- NOTE | ~2017-04-06 | PR ---
[place], [place] PROGRESS NOTE NAME: JUSTIN VERGARA [facility] #: [id number] UNIT #: [id number] ROOM: 520 DOCTOR: EPHRAIM REYES MD,AUDREY BIRTHDATE: [birth year] DOS: 04/13/2017 SUBJECTIVE: She has a bronchoscopy that was done 2 days ago. Reduction of the respiratory symptoms have been noted. Chest pain has been improving, but not completely resolved. There were no symptoms of acute shortness of breath. OBJECTIVE: VITAL SIGNS: Normal temperature, respiratory rate 20, heart rate of 110, blood pressure 144/86. The pulse oxygen saturation recorded as 95% on room air. HEENT AND NECK: Supple. CARDIOVASCULAR: S1, S2 is audible. LUNGS: The patient was noted without any wheeze or crackles. ABDOMEN: Soft, nontender. EXTREMITIES: Without any edema. LABORATORY DATA: Chest x-ray of the patient done this morning shows minimal pleural fluid was noted with resolving pulmonary infiltration in the left lung. IMPRESSION: 1. Resolving acute pneumonia with MRSA with minimal pleural fluid of concern. 2. History of chronic obstructive pulmonary disease and chronic nicotine dependence. PLAN OF TREATMENT: The patient could be discharged home on oral Zyvox 600 mg b.i.d. for the next 10 days to complete the pneumonia. Outpatient followup in 2 weeks post-discharge for further assessment. Usual care. AUDREY YE MD CM:PNTRANS [id number] 5 AUDREY REYES MD 04/14/17 0436 interface
--- NOTE | ~2017-04-06 | PR ---
[place], [place] PROGRESS NOTE NAME: JUSTIN VERGARA UNIT #: [id number] ROOM: 520 DOCTOR: AUDREY STRICKLAND MD BIRTHDATE: [birth year] DOS: 04/11/2017 SUBJECTIVE: She was still noted with severe cough, which remains mostly nonproductive, but the chest pain reported in the left side of the chest. She is n.p.o. past midnight on bronchoscopy. There were no symptoms of hemoptysis. Denies edema or pain of the lower extremity, nausea, vomiting, diarrhea, dizziness. OBJECTIVE: VITAL SIGNS: Blood pressure recorded as 129/88, heart rate of 102 with sinus tachycardia, respirations 18 and temperature normal this morning. Pulse oxygen saturation recorded on room air as 94% saturation. HEENT: No acute abnormality. CARDIOVASCULAR: S1, S2 audible. LUNGS: The patient was noted with general reduction in the breath sounds bilaterally. There was no wheezing. ABDOMEN: Flat, soft, nontender. EXTREMITIES: No edema. CENTRAL NERVOUS SYSTEM: Cranial nerves 2-12 intact. SKIN: No lesions or rashes. MUSCULOSKELETAL: No deformities. LABORATORY DATA: The anti-Kandace 1 antibody was noted as negative. There were no other labs done in the last 24 hours. IMPRESSION: 1. The patient have been currently noted with acute pneumonia with MRSA with severe nonproductive cough with a history of chronic obstructive pulmonary disease. 2. History of lung cancer, moderately differentiated adenocarcinoma, status post right upper lobectomy as well. 3. The patient with a past history of nicotine use as well and multiple other medical problems. PLAN OF MANAGEMENT: Proceed with the bronchoscopy as planned for the assessment of the cough. Continue antibiotic, vancomycin. Routine labs were ordered for this patient since the patient is getting vancomycin to be starting from tomorrow morning for the next 3 days. Other supportive therapy, plan and management and care. Obtain a chest x-ray in a couple of days to reassess the pneumonia. Continuation other plan of management as in progress. Usual care, other supportive plan of care and treatments. [place], [place] PROGRESS NOTE NAME: JUSTIN VERGARA UNIT #: [id number] ROOM: 520 DOCTOR: AUDREY STRICKLAND MD BIRTHDATE: [birth year] AUDREY YE MD CM:PNTRANS 1302 22 AUDREY REYES MD 04/11/171822 interface
--- NOTE | ~2017-04-06 | PR ---
[place], [place] PROGRESS NOTE NAME: JUSTIN VERGARA [facility] #: [id number] UNIT #: [id number] ROOM: 520 DOCTOR: EPHRAIM REYES MD,AUDREY BIRTHDATE: [birth year] DOS: 04/10/2017 SUBJECTIVE: She has been still noted with significant pain. The patient was started on doxycycline yesterday in addition to continuation of the Levaquin. Cough has been noted with minimal sputum expectoration. The sputum culture for the patient was noted positive for MRSA. OBJECTIVE: VITAL SIGNS: For the patient, which has been recorded showed the temperature noted as normal, respiratory rate 16-18, heart rate 97-119, blood pressure 92/57 to 104/58. Intake for the patient recorded 910 mL and the output was not recorded. Pulse ox saturation was 98% saturation on room air. HEENT: Showed no new change. NECK: Supple. CARDIOVASCULAR: S1, S2 audible. LUNGS: Noted with crackles in the left lower lung. ABDOMEN: Soft and nontender. EXTREMITIES: Shows no edema, clubbing, or cyanosis. SKIN: No lesions or rashes. MUSCULOSKELETAL: No deformities. GENITOURINARY: Intact. LABORATORY DATA: Culture of sputum shows evidence of heavy growth of MRSA. The CBC this morning for this patient was noted with normal WBC count, hemoglobin, hematocrit, and platelet count. The sputum culture was taken on 04/07/2017. The CMP for the patient this morning, normal BUN and creatinine. Albumin of 2.6. Chest x-ray yesterday shows persistent area of consolidation in the right lower lobe. IMPRESSION: The patient who has been currently noted with finding consistent with acute pneumonia with MRSA with persistent chest pain. Cough has been noted significant without any sputum expectoration. Significant pain was noted with coughing. The patient is unable to clear out the sputum by mouth. PLAN OF TREATMENT: Discontinue all the other antibiotics. Start the patient on intravenous vancomycin. The bronchoscopy was planned to be done tomorrow morning. Risks and the benefit of the procedure has been discussed with the patient. She is agreeable for the procedure. Procedure will be done tomorrow morning. In the meantime, continue to maximize the other medical treatment as well. Usual care. Supportive therapy, plan of care and treatment. Usual medical management. [place], [place] PROGRESS NOTE NAME: JUSTIN VERGARA UNIT #: [id number] ROOM: 520 DOCTOR: EPHRAIM REYES MD,AUDREY BIRTHDATE: [birth year] AUDREY YE MD CM:PNTRANS [id number] AUDREY REYES MD 04/10/17 1210 interface
--- NOTE | ~2017-04-06 | PR ---
[place], [place] PROGRESS NOTE NAME: JUSTIN VERGARA [facility] #: [id number] UNIT #: [id number] ROOM: 520 DOCTOR: EPHRAIM REYES MD,AUDREY BIRTHDATE: [birth year] DOS: 04/08/2017 SUBJECTIVE: She has been noted comfortable at this time, but still noted pain in the chest with a cough described and small amount of sputum expectoration reported in the last 24 hours. Denies symptoms of hemoptysis. The patient denies any symptoms of wheezing. This afternoon and at the morning when the patient was seen, she has been sitting on the bed, holding the pillow against her chest ____ the patient to decrease the pain with the cough. OBJECTIVE: VITAL SIGNS: Normal temperature, respiratory rate of 20, heart rate of 112-94, blood pressure 108/61-120/71. Pulse oxygen saturation of the patient on room air 92% saturation recorded. HEENT: Showed no acute change. NECK: Supple. CARDIOVASCULAR: S1, S2 audible. LUNGS: The patient was noted with moderate decreased breath sounds, but no wheezing, no crackles were noted at present time. ABDOMEN: Soft, nontender. EXTREMITIES: Without any edema with no lesions or rashes. MUSCULOSKELETAL: No deformities. CENTRAL NERVOUS SYSTEM: Intact. LABORATORY DATA: The culture of the sputum preliminary showing normal jamaal from the 04/07/2017 with the Gram stain was noted with moderate white blood cells, few epithelial cells, few gram-positive cocci in pairs and rare gram-positive bacilli. ESR was noted elevated as 65. The BMP of the patient done this morning, normal BUN and creatinine. CBC 12.2, hemoglobin 11.4, hematocrit 34.4, platelet count noted as normal. IMPRESSION: 1. The patient who has been currently admitted to the hospital noted with past history of moderately differentiated adenocarcinoma of the right upper lung, status post lobectomy, currently treated with current nodular infiltration predominantly in the lower lungs, greater on the left and right-sided pleuritic chest pain with suspected diagnosis of acute pneumonia one of the differential. 2. The patient with history of chronic obstructive pulmonary disease and bronchial asthma without any evidence of acute exacerbation. PLAN OF MANAGEMENT: Monitor workup, which has been ordered for patient current pulmonary infiltration. The antibiotic will be continued previously, symptomatic management of pain to be continued. Bronchodilators. Monitor results of the sputum culture. Continue the Levaquin. The patient had a primary antibiotic. Change in the treatment we recommended based on progression of the illness. [place], [place] PROGRESS NOTE NAME: URSULAJUSTIN Morse UNIT #: [id number] ROOM: [facility] DOCTOR: AUDREY STRICKLAND MD BIRTHDATE: [birth year] AUDREY YE MD CM:PNTRANS [id number] AUDREY REYES MD 04/08/17 9569 interface
--- NOTE | ~2017-04-06 | PR ---
[place], [place] PROGRESS NOTE NAME: JUSTIN VERGARA UNIT #: [id number] ROOM: 520 DOCTOR: AUDREY STRICKLAND MD BIRTHDATE: [birth year] DOS: 04/09/2017 SUBJECTIVE: She is still complaining of pain in the chest noted with the cough with some sputum expectoration at times. Denies symptoms of hemoptysis. The shortness of breath has been noted to be absent at rest. Vital sign shows low-grade fever. The patient denies any symptoms of edema or pain of the lower extremities. Denies any symptoms of dizziness. OBJECTIVE: VITAL SIGNS: Temperature ____, respiratory rate 18, this morning heart rate 72, blood pressure of 114/68. The pulse ox saturation recorded 98% saturation. HEENT: Examination shows no acute change. Head was atraumatic. Eyes: No icterus. NECK: Supple. CARDIOVASCULAR: S1, S2 audible. LUNGS: The patient was noted without any wheezing or crackles at the present time. ABDOMEN: Soft, nontender. EXTREMITIES: The patient was noted without any acute edema. CENTRAL NERVOUS SYSTEM: Cranial nerves 2-12 intact. MUSCULOSKELETAL: No deformities. SKIN: No lesions or rashes. LABORATORY DATA: The patient's chest x-ray that I ordered this morning was done, PA lateral view shows postsurgical changes in the right upper lobe with acute infiltration was still noted in the left lower lobe with associated minimal pleural effusion. Culture of the sputum preliminary showing normal jamaal for the patient, sent to the lab on 04/07/2017. PLAN OF MANAGEMENT: The patient's antibiotic spectrum. The patient will be added with the additional coverage for the possibility of MRSA infection can be excluded patient's past issue. The patient with current persistent chest pain and pneumonia with the use of doxycycline. Continuation of the Levaquin for this patient as previously same dose. Bronchodilators. Monitor respiratory symptoms with symptomatic improvement. Continue DVT prophylaxis. [place], [place] PROGRESS NOTE NAME: JUSTIN VERGARA UNIT #: [id number] ROOM: 520 DOCTOR: AUDREY STRICKLAND MD BIRTHDATE: [birth year] AUDREY YE MD CM:PNTRANS [id number] AUDREY REYES MD 04/09/17 1601 interface
[~2017-04-06 11:43] MED LIST changes: +REMERON15 M2 PO
[2017-04-06 12:08] LABS: BASO % 0.2 % (0.0-1.0); EOS # 0.1 10*3/uL (0.0-0.4); EOS % 0.5 % (1.0-4.0); HEMATOCRIT 45.9 % (37.0-47.0); HEMOGLOBIN 15.6 g/dl (12.0-16.0); LYMPH # 1.6 10*3/uL (1.3-4.4); MEAN CELL VOLUME 96.4 fl (81.0-99.0); MEAN CORPUSCULAR HGB 32.8 pg (27.0-31.0); MEAN PLATELET VOLUME 9.2 fl (9.6-12.3); MONO # 1.1 10*3/uL (0.1-1.0); MONO % 6.9 % (3.0-9.0); NEUT # 12.8 10*3/uL (2.3-7.9); NEUT % 81.9 % (47.0-73.0); PLATELET COUNT AUTOMATED 253 10*3/uL (130-400); RED BLOOD COUNT 4.76 10*6/uL (4.10-5.10); RED CELL DISTRI WIDTH 12.1 % (0-14.5); WHITE BLOOD COUNT 15.7 10*3/uL (4.8-10.8)
[2017-04-06 12:17] LABS: ACT PARTIAL THROMBO TIME 29.1 SECONDS (20.8-31.5)
[2017-04-06 12:25] LABS: ALBUMIN 3.3 gm/dl (3.1-4.5); ALKALINE PHOSPHATASE 152 U/L (45-117); BUN 6 mg/dl (7-24); CHLORIDE 100 mmol/L (98-107); POTASSIUM 4.5 mmol/L (3.5-5.1); SGOT/AST 16 IU/L (3-35); SGPT/ALT 21 U/L (12-78); SODIUM 136 mmol/L (136-145); TOTAL PROTEIN 8.5 gm/dL (6.4-8.2)
[2017-04-06 12:33] LABS: TROPONIN I < 0.015 ng/ml (<0.045)
[2017-04-06 15:17] LABS: BILIRUBIN NEGATIVE (NEGATIVE); BLOOD NEGATIVE (NEGATIVE); CLARITY SL CLOUDY (CLEAR); COLOR YELLOW (YELLOW); GLUCOSE NEGATIVE (NEGATIVE); KETONE 2+ (NEGATIVE); LEUKO ESTERASE NEGATIVE (NEGATIVE); NITRITE NEGATIVE (NEGATIVE); UROBILINOGEN 0.2 E.U./dl (0.2-1.0)
[2017-04-06 15:38] LABS: BACTERIA TRACE
[2017-04-06 15:39] LABS: MUCOUS 1+
[2017-04-07] VITALS: BP 90/57
[2017-04-07 06:20] LABS: LYMPH # 0.9 10*3/uL (1.3-4.4); LYMPH % 7.5 % (27.0-41.0); MEAN CELL VOLUME 98.5 fl (81.0-99.0); MEAN CORPUSCULAR HGB 33.1 pg (27.0-31.0); MEAN CORPUSCULAR HGB CONC 33.6 g/dl (33.0-37.0); MEAN PLATELET VOLUME 9.7 fl (9.6-12.3); MONO # 0.5 10*3/uL (0.1-1.0); NEUT % 88.1 % (47.0-73.0); PLATELET COUNT AUTOMATED 190 10*3/uL (130-400); RED BLOOD COUNT 3.41 10*6/uL (4.10-5.10); RED CELL DISTRI WIDTH 12.2 % (0-14.5); WHITE BLOOD COUNT 11.3 10*3/uL (4.8-10.8)
[2017-04-07 06:23] LABS: HEMATOCRIT 33.6 % (37.0-47.0); HEMOGLOBIN 11.3 g/dl (12.0-16.0)
[2017-04-07 06:39] LABS: BUN 9 mg/dl (7-24); CHLORIDE 110 mmol/L (98-107); POTASSIUM 4.1 mmol/L (3.5-5.1); SODIUM 144 mmol/L (136-145)
[2017-04-07 06:50] LABS: CHOLESTEROL 117 mg/dL (<200); HDL CHOLESTEROL 52 mg/dl (40-60); LDL CHOLESTEROL 56 mg/dL (9-159); PHOSPHOROUS 2.4 mg/dL (2.5-4.9); THYROID STIM HORMONE (HS) 0.081 uIU/ml (0.358-4.75); TRIGLYCERIDES 43 mg/dl (<150); VLDL CHOLESTEROL 9 mg/dL (6-40)
[2017-04-07 07:23] LABS: VITAMIN D, 25-HYDROXY 19.7 ng/mL (30-100)
[2017-04-07 08:00] VITALS: BP 137/91
[2017-04-07 16:00] VITALS: BP 109/60
[2017-04-07 20:00] VITALS: BP 122/71
[2017-04-08] VITALS: BP 120/71
[2017-04-08 06:38] LABS: BASO % 0.2 % (0.0-1.0); BUN 6 mg/dl (7-24); CHLORIDE 107 mmol/L (98-107); EOS # 0.2 10*3/uL (0.0-0.4); EOS % 1.2 % (1.0-4.0); HEMATOCRIT 34.4 % (37.0-47.0); HEMOGLOBIN 11.4 g/dl (12.0-16.0); LYMPH # 2.1 10*3/uL (1.3-4.4); LYMPH % 17.4 % (27.0-41.0); MEAN CELL VOLUME 99.1 fl (81.0-99.0); MEAN CORPUSCULAR HGB 32.9 pg (27.0-31.0); MEAN CORPUSCULAR HGB CONC 33.1 g/dl (33.0-37.0); MEAN PLATELET VOLUME 9.6 fl (9.6-12.3); MONO # 0.8 10*3/uL (0.1-1.0); MONO % 6.1 % (3.0-9.0); NEUT # 9.1 10*3/uL (2.3-7.9); NEUT % 74.7 % (47.0-73.0); PHOSPHOROUS 2.8 mg/dL (2.5-4.9); PLATELET COUNT AUTOMATED 230 10*3/uL (130-400); POTASSIUM 3.7 mmol/L (3.5-5.1); RED BLOOD COUNT 3.47 10*6/uL (4.10-5.10); RED CELL DISTRI WIDTH 12.5 % (0-14.5); SODIUM 143 mmol/L (136-145); WHITE BLOOD COUNT 12.2 10*3/uL (4.8-10.8)
[2017-04-08 08:00] VITALS: BP 108/61
[2017-04-08 16:00] VITALS: BP 115/66
[2017-04-08 20:00] VITALS: BP 101/59
[2017-04-09] VITALS: BP 94/63
[2017-04-09 09:00] VITALS: BP 114/68
[2017-04-09 16:00] VITALS: BP 104/58
[2017-04-09 20:00] VITALS: BP 100/58
[2017-04-10] VITALS: BP 92/53
[2017-04-10 04:00] VITALS: BP 92/57
[2017-04-10 06:10] LABS: IMMUNOGLOBULIN IgE 002170 448 IU/mL (0-100)
[2017-04-10 07:49] LABS: BASO % 0.3 % (0.0-1.0); EOS # 0.3 10*3/uL (0.0-0.4); EOS % 4.5 % (1.0-4.0); HEMATOCRIT 37.8 % (37.0-47.0); HEMOGLOBIN 12.4 g/dl (12.0-16.0); LYMPH # 1.8 10*3/uL (1.3-4.4); LYMPH % 30.4 % (27.0-41.0); MEAN CELL VOLUME 99.2 fl (81.0-99.0); MEAN CORPUSCULAR HGB 32.5 pg (27.0-31.0); MEAN CORPUSCULAR HGB CONC 32.8 g/dl (33.0-37.0); MEAN PLATELET VOLUME 9.5 fl (9.6-12.3); MONO # 0.5 10*3/uL (0.1-1.0); MONO % 8.6 % (3.0-9.0); NEUT # 3.3 10*3/uL (2.3-7.9); PLATELET COUNT AUTOMATED 295 10*3/uL (130-400); RED BLOOD COUNT 3.81 10*6/uL (4.10-5.10); RED CELL DISTRI WIDTH 12.3 % (0-14.5); WHITE BLOOD COUNT 6.1 10*3/uL (4.8-10.8)
[2017-04-10 08:08] LABS: ALBUMIN 2.6 gm/dl (3.1-4.5); ALKALINE PHOSPHATASE 98 U/L (45-117); BUN 8 mg/dl (7-24); CHLORIDE 101 mmol/L (98-107); CREATININE 0.47 mg/dL (0.55-1.02); POTASSIUM 4.3 mmol/L (3.5-5.1); SGOT/AST 20 IU/L (3-35); SGPT/ALT 24 U/L (12-78); SODIUM 138 mmol/L (136-145); TOTAL PROTEIN 6.7 gm/dL (6.4-8.2)
[2017-04-10 08:10] LABS: IMMUNOGLOBULIN M, QNT 92 mg/dL (26-217); RHEUMATOID ARTHRITIS FACTOR 14.7 IU/mL (0.0-13.9)
[2017-04-10 12:07] LABS: ALDOLASE 002030 6.3 U/L (3.3-10.3); ANGIOTENSIN-CONVERTING ENZYME 34 U/L (14-82)
[2017-04-10 16:00] VITALS: BP 125/75
[2017-04-10 16:08] LABS: ATYPICAL PANCA <1:20 titer (Neg:<1:20); CYTOPLASMIC (C-ANCA) <1:20 titer (Neg:<1:20); PERINUCLEAR (P-ANCA) <1:20 titer (Neg:<1:20)
[2017-04-10 20:00] VITALS: BP 129/88
[2017-04-11] VITALS (7 sets, daily range): BP systolic 113–147; BP diastolic 40–83
[2017-04-11 02:08] LABS: IGG SUBCLASS 1 276 mg/dL (248-810); IGG SUBCLASS 2 200 mg/dL (130-555); IGG SUBCLASS 3 85 mg/dL (15-102); IGG SUBCLASS 4 10 mg/dL (2-96); IMMUNOGLOBULIN G, QNT 583 mg/dL (700-1600)
[2017-04-12] VITALS: BP 97/61
[2017-04-12 00:04] LABS: ADENOVIRUS Negative (Negative); INFLUENZA A Negative (Negative); INFLUENZA B Negative (Negative); METAPNEUMOVIRUS Negative (Negative); PARAINFLUENZA 1 Negative (Negative); PARAINFLUENZA 2 Negative (Negative); PARAINFLUENZA 3 Negative (Negative); RHINOVIRUS Negative (Negative); RSV A Negative (Negative); RSV B Negative (Negative)
[2017-04-12 04:00] VITALS: BP 122/69
[2017-04-12 07:32] LABS: BASO % 0.4 % (0.0-1.0); EOS # 0.5 10*3/uL (0.0-0.4); EOS % 5.2 % (1.0-4.0); HEMATOCRIT 37.4 % (37.0-47.0); HEMOGLOBIN 12.3 g/dl (12.0-16.0); LYMPH # 2.2 10*3/uL (1.3-4.4); LYMPH % 23.7 % (27.0-41.0); MEAN CELL VOLUME 99.2 fl (81.0-99.0); MEAN CORPUSCULAR HGB 32.6 pg (27.0-31.0); MEAN CORPUSCULAR HGB CONC 32.9 g/dl (33.0-37.0); MEAN PLATELET VOLUME 9.2 fl (9.6-12.3); MONO # 0.8 10*3/uL (0.1-1.0); MONO % 8.2 % (3.0-9.0); NEUT # 5.7 10*3/uL (2.3-7.9); PLATELET COUNT AUTOMATED 341 10*3/uL (130-400); RED BLOOD COUNT 3.77 10*6/uL (4.10-5.10); RED CELL DISTRI WIDTH 12.3 % (0-14.5); WHITE BLOOD COUNT 9.3 10*3/uL (4.8-10.8)
[2017-04-12 08:00] VITALS: BP 98/66
[2017-04-12 08:01] LABS: ALBUMIN 2.8 gm/dl (3.1-4.5); BUN 13 mg/dl (7-24); CHLORIDE 104 mmol/L (98-107); CREATININE 0.53 mg/dL (0.55-1.02); POTASSIUM 4.4 mmol/L (3.5-5.1); SGOT/AST 22 IU/L (3-35); SGPT/ALT 33 U/L (12-78); SODIUM 140 mmol/L (136-145)
[2017-04-12 08:03] LABS: ALKALINE PHOSPHATASE 103 U/L (45-117)
[2017-04-12 12:00] VITALS: BP 110/67
[2017-04-12 16:00] VITALS: BP 111/83
[2017-04-12 16:08] LABS: ACID FAST SMEAR Negative (.); ACID FAST SPEC PROCESSING Concentration (.)
[2017-04-13] VITALS: BP 130/71
[2017-04-13 07:56] LABS: ALBUMIN 3.3 gm/dl (3.1-4.5); ALKALINE PHOSPHATASE 122 U/L (45-117); BUN 7 mg/dl (7-24); CHLORIDE 103 mmol/L (98-107); CREATININE 0.54 mg/dL (0.55-1.02); SGOT/AST 18 IU/L (3-35); SGPT/ALT 35 U/L (12-78); SODIUM 139 mmol/L (136-145); TOTAL PROTEIN 8.1 gm/dL (6.4-8.2)
[2017-04-13 07:57] LABS: BASO % 0.3 % (0.0-1.0); EOS # 0.4 10*3/uL (0.0-0.4); EOS % 3.1 % (1.0-4.0); HEMATOCRIT 40.3 % (37.0-47.0); HEMOGLOBIN 13.3 g/dl (12.0-16.0); LYMPH # 1.6 10*3/uL (1.3-4.4); LYMPH % 13.4 % (27.0-41.0); MEAN CELL VOLUME 97.8 fl (81.0-99.0); MEAN CORPUSCULAR HGB 32.3 pg (27.0-31.0); MEAN PLATELET VOLUME 8.9 fl (9.6-12.3); MONO # 0.9 10*3/uL (0.1-1.0); MONO % 7.2 % (3.0-9.0); NEUT # 8.8 10*3/uL (2.3-7.9); NEUT % 74.6 % (47.0-73.0); PLATELET COUNT AUTOMATED 385 10*3/uL (130-400); RED BLOOD COUNT 4.12 10*6/uL (4.10-5.10); RED CELL DISTRI WIDTH 12.2 % (0-14.5); WHITE BLOOD COUNT 11.8 10*3/uL (4.8-10.8)
[2017-04-13 08:00] VITALS: BP 144/86
[2017-04-13 16:00] VITALS: BP 150/90
[2017-04-13] MEDS ORDERED: LINEZOLID600 MG PO (16:07)
== END 2017-04-13 17:42 | disposition home or self-care (01) | DRG 871 ==
LOC: ED 11:43 → 5E 15:11 → EDHOLD 15:11 → 5E 15:18
PROVIDERS: Internal Medicine; Internal Medicine Critical Care Medicine; Nurse Practitioner Family; Registered Nurse
PROC: 0BC98ZZ Extirpation of Matter from Lingula Bronchus, Via Natural or Artificial Opening Endoscopic (ICD-10-PCS; principal; 2017-04-11)
PROC: 0BC48ZZ Extirpation of Matter from Right Upper Lobe Bronchus, Via Natural or Artificial Opening Endoscopic (ICD-10-PCS; 2017-04-11)
PROC: 0BC88ZZ Extirpation of Matter from Left Upper Lobe Bronchus, Via Natural or Artificial Opening Endoscopic (ICD-10-PCS; 2017-04-11)
PROC: 0BC18ZZ Extirpation of Matter from Trachea, Via Natural or Artificial Opening Endoscopic (ICD-10-PCS; 2017-04-11)
PROC: 0BC58ZZ Extirpation of Matter from Right Middle Lobe Bronchus, Via Natural or Artificial Opening Endoscopic (ICD-10-PCS; 2017-04-11)
PROC: 0BC38ZZ Extirpation of Matter from Right Main Bronchus, Via Natural or Artificial Opening Endoscopic (ICD-10-PCS; 2017-04-11)
PROC: 0BC78ZZ Extirpation of Matter from Left Main Bronchus, Via Natural or Artificial Opening Endoscopic (ICD-10-PCS; 2017-04-11)
DX: A41.9 Sepsis, unspecified organism (principal); J96.01 Acute respiratory failure with hypoxia; E43 Unspecified severe protein-calorie malnutrition; E87.2 Acidosis; J15.212 Pneumonia due to Methicillin resistant Staphylococcus aureus; T17.590A Other foreign object in bronchus causing asphyxiation, initial encounter; C34.11 Malignant neoplasm of upper lobe, right bronchus or lung; J44.0 Chronic obstructive pulmonary disease with (acute) lower respiratory infection; Z68.1 Body mass index [BMI] 19.9 or less, adult; E83.39 Other disorders of phosphorus metabolism; R65.20 Severe sepsis without septic shock; F43.10 Post-traumatic stress disorder, unspecified; G43.909 Migraine, unspecified, not intractable, without status migrainosus; Z71.6 Tobacco abuse counseling; K58.9 Irritable bowel syndrome, unspecified; G25.81 Restless legs syndrome; R73.9 Hyperglycemia, unspecified; X58.XXXA Exposure to other specified factors, initial encounter; I10 Essential (primary) hypertension; K21.9 Gastro-esophageal reflux disease without esophagitis; F32.9 Major depressive disorder, single episode, unspecified; K82.4 Cholesterolosis of gallbladder; F17.210 Nicotine dependence, cigarettes, uncomplicated; E83.41 Hypermagnesemia; F41.9 Anxiety disorder, unspecified; F12.10 Cannabis abuse, uncomplicated; M19.90 Unspecified osteoarthritis, unspecified site; Z90.710 Acquired absence of both cervix and uterus; Z83.3 Family history of diabetes mellitus; Z82.49 Family history of ischemic heart disease and other diseases of the circulatory system; Z82.3 Family history of stroke; Y93.89 Activity, other specified; Y92.89 Other specified places as the place of occurrence of the external cause; Y99.8 Other external cause status; Z85.118 Personal history of other malignant neoplasm of bronchus and lung; Z88.2 Allergy status to sulfonamides; Z88.1 Allergy status to other antibiotic agents

== ENCOUNTER 2017-06-09 21:44 | Emergency (ER) | payer OTHER ==
[~2017-06-09] VITALS: Ht 152.4 cm; Wt 39.5 kg
[~2017-06-09 21:44] MED LIST changes: +LINEZOLID600 MG PO
[2017-06-09 22:37] LABS: BASO % 0.2 % (0.0-1.0); HEMATOCRIT 49.2 % (37.0-47.0); HEMOGLOBIN 16.4 g/dl (12.0-16.0); LYMPH # 0.9 10*3/uL (1.3-4.4); LYMPH % 8.8 % (27.0-41.0); MEAN CELL VOLUME 96.1 fl (81.0-99.0); MEAN CORPUSCULAR HGB CONC 33.3 g/dl (33.0-37.0); MEAN PLATELET VOLUME 8.8 fl (9.6-12.3); MONO # 0.2 10*3/uL (0.1-1.0); MONO % 1.9 % (3.0-9.0); NEUT # 8.9 10*3/uL (2.3-7.9); NEUT % 88.7 % (47.0-73.0); PLATELET COUNT AUTOMATED 246 10*3/uL (130-400); RED BLOOD COUNT 5.12 10*6/uL (4.10-5.10)
[2017-06-09 23:27] LABS: ALBUMIN 4.4 gm/dl (3.1-4.5); ALKALINE PHOSPHATASE 132 U/L (45-117); BUN 9 mg/dl (7-24); CHLORIDE 102 mmol/L (98-107); CREATININE 0.72 mg/dL (0.55-1.02); LIPASE 108 U/L (73-393); SGOT/AST 25 IU/L (3-35); SGPT/ALT 25 U/L (12-78); SODIUM 140 mmol/L (136-145); TOTAL PROTEIN 8.6 gm/dL (6.4-8.2)
[2017-06-10] MEDS ORDERED: PHENERGAN25 MG R (01:39)
== END 2017-06-10 02:12 | disposition home or self-care (01) ==
LOC: ED 21:44
PROVIDERS: Physician Assistant
DX: R11.2 Nausea with vomiting, unspecified (principal); F17.210 Nicotine dependence, cigarettes, uncomplicated; Z90.710 Acquired absence of both cervix and uterus; Z90.89 Acquired absence of other organs; Z98.890 Other specified postprocedural states; Z79.899 Other long term (current) drug therapy; Z88.1 Allergy status to other antibiotic agents; Z88.2 Allergy status to sulfonamides; Z88.6 Allergy status to analgesic agent; Z85.118 Personal history of other malignant neoplasm of bronchus and lung

== ENCOUNTER 2017-07-19 15:19 | Inpatient (IN) | payer OTHER ==
[~2017-07-19] VITALS: Ht 152.4 cm; Wt 38.2 kg
[~2017-07-19 15:19] MED LIST changes: +BREO ELLIPTA 21 EACH INH; +BUSPIRONE10 MG PO; +LOPRESSOR25 MG PO; +VISTARIL25 MG PO; +ZOFRAN ODT8 M1 PO
[2017-07-19 16:20] VITALS: BP 129/86
[2017-07-19 17:10] LABS: BASO # 0.1 10*3/uL (0.0-0.1); BASO % 0.5 % (0.0-1.0); EOS # 0.1 10*3/uL (0.0-0.4); EOS % 0.6 % (1.0-4.0); HEMATOCRIT 45.3 % (37.0-47.0); HEMOGLOBIN 15.5 g/dl (12.0-16.0); LYMPH # 2.3 10*3/uL (1.3-4.4); LYMPH % 21.9 % (27.0-41.0); MEAN CELL VOLUME 91.9 fl (81.0-99.0); MEAN CORPUSCULAR HGB 31.4 pg (27.0-31.0); MEAN CORPUSCULAR HGB CONC 34.2 g/dl (33.0-37.0); MEAN PLATELET VOLUME 8.8 fl (9.6-12.3); MONO # 0.6 10*3/uL (0.1-1.0); MONO % 5.3 % (3.0-9.0); NEUT # 7.6 10*3/uL (2.3-7.9); NEUT % 71.5 % (47.0-73.0); PLATELET COUNT AUTOMATED 283 10*3/uL (130-400); RED BLOOD COUNT 4.93 10*6/uL (4.10-5.10); WHITE BLOOD COUNT 10.6 10*3/uL (4.8-10.8)
[2017-07-19 17:40] LABS: ALBUMIN 4.5 gm/dl (3.1-4.5); ALKALINE PHOSPHATASE 117 U/L (45-117); BUN 10 mg/dl (7-24); CHLORIDE 105 mmol/L (98-107); CREATININE 0.61 mg/dL (0.55-1.02); ETHYL ALCOHOL < 3.0 mg/dl (<3); SGOT/AST 20 IU/L (3-35); SGPT/ALT 22 U/L (12-78); SODIUM 141 mmol/L (136-145); TOTAL PROTEIN 7.7 gm/dL (6.4-8.2)
[2017-07-19] MEDS ORDERED: SPIRIVA RESPIMAT4 GM INH (18:17)
[2017-07-19] MEDS ORDERED: MELATONIN10 M4 PO (18:21)
[2017-07-19 19:57] LABS: BILIRUBIN NEGATIVE (NEGATIVE); BLOOD NEGATIVE (NEGATIVE); CLARITY SL CLOUDY (CLEAR); COLOR YELLOW (YELLOW); GLUCOSE NEGATIVE (NEGATIVE); KETONE TRACE (NEGATIVE); LEUKO ESTERASE NEGATIVE (NEGATIVE); NITRITE NEGATIVE (NEGATIVE); PH 5.5 (5.0-9.0); UROBILINOGEN 0.2 E.U./dl (0.2-1.0)
[2017-07-19 20:00] VITALS: BP 143/80
[2017-07-19 20:02] LABS: BACTERIA 1+; MUCOUS TRACE; RBC 0-2 rbc/hpf (0-2)
[2017-07-19 20:05] LABS: URINE AMPHETAMINES < 1000 (1000ng/ml); URINE BARBITURATES < 200 (200ng/ml); URINE BENZODIAZEPINES < 200 (200ng/ml); URINE CANNABINOIDS (THC) > 50 (50ng/ml); URINE COCAINE < 300 (300ng/ml); URINE METHADONE < 300 (300ng/ml); URINE OPIATES < 300 (300ng/ml)
[2017-07-19 20:12] LABS: URINE PHENCYCLIDINE < 25 (25ng/ml)
[2017-07-20] VITALS: BP 158/90
[2017-07-20 06:05] LABS: BASO # 0.1 10*3/uL (0.0-0.1); BASO % 0.7 % (0.0-1.0); EOS # 0.5 10*3/uL (0.0-0.4); HEMATOCRIT 41.2 % (37.0-47.0); LYMPH # 3.4 10*3/uL (1.3-4.4); LYMPH % 40.5 % (27.0-41.0); MEAN CELL VOLUME 91.6 fl (81.0-99.0); MEAN CORPUSCULAR HGB 31.1 pg (27.0-31.0); MEAN PLATELET VOLUME 9.2 fl (9.6-12.3); MONO # 0.8 10*3/uL (0.1-1.0); MONO % 8.9 % (3.0-9.0); NEUT # 3.7 10*3/uL (2.3-7.9); NEUT % 43.7 % (47.0-73.0); PLATELET COUNT AUTOMATED 236 10*3/uL (130-400); RED CELL DISTRI WIDTH 12.1 % (0-14.5); WHITE BLOOD COUNT 8.5 10*3/uL (4.8-10.8)
[2017-07-20 06:30] LABS: ALBUMIN 3.5 gm/dl (3.1-4.5); ALKALINE PHOSPHATASE 96 U/L (45-117); BUN 11 mg/dl (7-24); CHLORIDE 104 mmol/L (98-107); CHOLESTEROL 176 mg/dL (<200); CREATININE 0.53 mg/dL (0.55-1.02); FREE T4 1.18 ng/dl (0.76-1.46); HDL CHOLESTEROL 62 mg/dl (40-60); LDL CHOLESTEROL 98 mg/dL (9-159); PHOSPHOROUS 3.5 mg/dL (2.5-4.9); POTASSIUM 3.6 mmol/L (3.5-5.1); SGOT/AST 13 IU/L (3-35); SGPT/ALT 18 U/L (12-78); SODIUM 139 mmol/L (136-145); TOTAL PROTEIN 6.8 gm/dL (6.4-8.2); TRIGLYCERIDES 79 mg/dl (<150); VLDL CHOLESTEROL 16 mg/dL (6-40)
[2017-07-20 06:35] LABS: THYROID STIM HORMONE (HS) 0.874 uIU/ml (0.358-4.75)
[2017-07-20 08:00] VITALS: BP 136/80
[2017-07-20 16:00] VITALS: BP 152/89
[2017-07-20 20:00] VITALS: BP 121/70
[2017-07-21] VITALS: BP 112/70
[2017-07-21 08:00] VITALS: BP 102/60
[2017-07-21 16:00] VITALS: BP 111/75
[2017-07-22] VITALS: BP 104/47
[2017-07-22 08:00] VITALS: BP 124/76
[2017-07-22] MEDS ORDERED: KLONOPIN1 M1 PO (12:51)
== END 2017-07-22 15:53 | disposition home or self-care (01) | DRG 897 ==
LOC: 5E 15:19
PROVIDERS: Internal Medicine; Registered Nurse
DX: F11.23 Opioid dependence with withdrawal (principal); F12.10 Cannabis abuse, uncomplicated; F13.10 Sedative, hypnotic or anxiolytic abuse, uncomplicated; I73.9 Peripheral vascular disease, unspecified; F41.9 Anxiety disorder, unspecified; F32.9 Major depressive disorder, single episode, unspecified; J44.9 Chronic obstructive pulmonary disease, unspecified; I10 Essential (primary) hypertension; G89.29 Other chronic pain; K21.9 Gastro-esophageal reflux disease without esophagitis; F43.10 Post-traumatic stress disorder, unspecified; M19.90 Unspecified osteoarthritis, unspecified site; Z90.710 Acquired absence of both cervix and uterus; Z82.49 Family history of ischemic heart disease and other diseases of the circulatory system; Z82.3 Family history of stroke; Z85.118 Personal history of other malignant neoplasm of bronchus and lung; Z88.2 Allergy status to sulfonamides; Z88.8 Allergy status to other drugs, medicaments and biological substances; Z79.899 Other long term (current) drug therapy; Z87.01 Personal history of pneumonia (recurrent)

== ENCOUNTER 2017-09-22 01:45 | Emergency (ER) | payer OTHER ==
[~2017-09-22] VITALS: Ht 152.4 cm; Wt 45.4 kg
[~2017-09-22 01:45] MED LIST changes: +MELATONIN10 M4 PO; +SPIRIVA RESPIMAT4 GM INH
[2017-09-22] MEDS ORDERED: TRAZADONE HYDR100 MG PO (02:18)
[2017-09-22] MEDS ORDERED: TIZANIDINE HCL4 MG PO (02:21)
[2017-09-22 02:44] LABS: URINE AMPHETAMINES < 1000 (1000ng/ml); URINE BARBITURATES < 200 (200ng/ml); URINE BENZODIAZEPINES > 200 (200ng/ml); URINE CANNABINOIDS (THC) > 50 (50ng/ml); URINE COCAINE < 300 (300ng/ml); URINE METHADONE < 300 (300ng/ml); URINE OPIATES < 300 (300ng/ml)
[2017-09-22 02:48] LABS: URINE PHENCYCLIDINE < 25 (25ng/ml)
== END 2017-09-22 03:29 | disposition home or self-care (01) ==
LOC: ED 01:45
PROVIDERS: Emergency Medicine
DX: S86.811A Strain of other muscle(s) and tendon(s) at lower leg level, right leg, initial encounter (principal); F41.9 Anxiety disorder, unspecified; J44.9 Chronic obstructive pulmonary disease, unspecified; F32.9 Major depressive disorder, single episode, unspecified; K21.9 Gastro-esophageal reflux disease without esophagitis; I10 Essential (primary) hypertension; E78.00 Pure hypercholesterolemia, unspecified; R73.9 Hyperglycemia, unspecified; Z88.2 Allergy status to sulfonamides; Z88.8 Allergy status to other drugs, medicaments and biological substances; Z79.899 Other long term (current) drug therapy; Z90.710 Acquired absence of both cervix and uterus; Z90.89 Acquired absence of other organs; W22.8XXA Striking against or struck by other objects, initial encounter; Y93.89 Activity, other specified; Y92.89 Other specified places as the place of occurrence of the external cause; Y99.8 Other external cause status

== ENCOUNTER 2018-12-19 17:08 | Emergency (ER) | payer OTHER ==
[~2018-12-19] VITALS: Ht 152.4 cm; Wt 46.3 kg
[~2018-12-19 17:08] MED LIST changes: +TIZANIDINE HCL4 MG PO; +TRAZODONE HYDR300 MG PO
[2018-12-19] MEDS ORDERED: PHENERGAN25 M3 PO (17:48)
[2018-12-19] MEDS ORDERED: KLONOPIN1 M1 PO (17:48)
== END 2018-12-19 18:20 | disposition home or self-care (01) ==
LOC: ED 17:08
DX: F41.9 Anxiety disorder, unspecified (principal); R11.0 Nausea; Z76.0 Encounter for issue of repeat prescription; Z79.899 Other long term (current) drug therapy; Z90.710 Acquired absence of both cervix and uterus; Z98.890 Other specified postprocedural states; Z88.1 Allergy status to other antibiotic agents; Z88.2 Allergy status to sulfonamides; Z88.6 Allergy status to analgesic agent

== ENCOUNTER 2019-01-02 13:54 | Emergency (ER) | payer MEDICAID ==
[~2019-01-02] VITALS: Wt 45.4 kg
[~2019-01-02 13:54] MED LIST changes: +PHENERGAN25 M3 PO
[2019-01-02 15:14] LABS: BASO % 0.2 % (0.0-1.0); EOS % 0.1 % (1.0-4.0); HEMATOCRIT 44.8 % (37.0-47.0); HEMOGLOBIN 15.4 g/dl (12.0-16.0); LYMPH # 0.8 10*3/uL (1.3-4.4); LYMPH % 6.3 % (27.0-41.0); MEAN CELL VOLUME 91.1 fl (81.0-99.0); MEAN CORPUSCULAR HGB 31.3 pg (27.0-31.0); MEAN CORPUSCULAR HGB CONC 34.4 g/dl (33.0-37.0); MONO # 0.4 10*3/uL (0.1-1.0); MONO % 3.3 % (3.0-9.0); NEUT # 10.6 10*3/uL (2.3-7.9); NEUT % 89.7 % (47.0-73.0); PLATELET COUNT AUTOMATED 316 10*3/uL (130-400); RED BLOOD COUNT 4.92 10*6/uL (4.10-5.10); WHITE BLOOD COUNT 11.8 10*3/uL (4.8-10.8)
[2019-01-02 15:29] LABS: ALBUMIN 4.2 gm/dl (3.1-4.5); ALKALINE PHOSPHATASE 127 U/L (45-117); BUN 8 mg/dl (7-24); CHLORIDE 104 mmol/L (98-107); CREATININE 0.58 mg/dL (0.55-1.02); LIPASE 59 U/L (73-393); POTASSIUM 3.6 mmol/L (3.5-5.1); SGOT/AST 9 IU/L (3-35); SGPT/ALT 14 U/L (12-78); SODIUM 139 mmol/L (136-145); TOTAL PROTEIN 8.1 gm/dL (6.4-8.2)
[2019-01-02 15:31] LABS: BILIRUBIN 1+ (NEGATIVE); BLOOD NEGATIVE (NEGATIVE); CLARITY CLEAR (CLEAR); COLOR YELLOW (YELLOW); GLUCOSE TRACE (NEGATIVE); KETONE 3+ (NEGATIVE); LEUKO ESTERASE NEGATIVE (NEGATIVE); NITRITE NEGATIVE (NEGATIVE); SPECIFIC GRAVITY >= 1.030 (1.005-1.030); UROBILINOGEN 0.2 E.U./dl (0.2-1.0)
[2019-01-02 15:39] LABS: BACTERIA TRACE; MUCOUS 2+; WBC 0-2 wbc/hpf (0-5)
[2019-01-02 15:48] LABS: URINE AMPHETAMINES < 1000 (1000ng/ml); URINE BARBITURATES < 200 (200ng/ml); URINE BENZODIAZEPINES < 200 (200ng/ml); URINE CANNABINOIDS (THC) > 50 (50ng/ml); URINE COCAINE < 300 (300ng/ml); URINE METHADONE < 300 (300ng/ml); URINE OPIATES < 300 (300ng/ml)
[2019-01-02 16:00] LABS: URINE PHENCYCLIDINE < 25 (25ng/ml)
[2019-01-02] MEDS ORDERED: KLONOPIN1 M1 PO (17:16)
== END 2019-01-02 17:49 | disposition home or self-care (01) ==
LOC: ED 13:54
PROVIDERS: Physician Assistant
DX: R11.2 Nausea with vomiting, unspecified (principal); R10.13 Epigastric pain; J44.9 Chronic obstructive pulmonary disease, unspecified; G43.909 Migraine, unspecified, not intractable, without status migrainosus; M19.90 Unspecified osteoarthritis, unspecified site; F17.210 Nicotine dependence, cigarettes, uncomplicated; Z79.899 Other long term (current) drug therapy; Z88.2 Allergy status to sulfonamides

== ENCOUNTER 2019-01-16 14:16 | Inpatient (IN) | payer MEDICAID ==
[~2019-01-16] VITALS: Ht 152.4 cm; Wt 43.3 kg
[2019-01-16 14:39] VITALS: BP 150/80
[2019-01-16 15:34] LABS: BASO % 0.4 % (0.0-1.0); EOS % 0.3 % (1.0-4.0); HEMATOCRIT 45.9 % (37.0-47.0); HEMOGLOBIN 15.7 g/dl (12.0-16.0); LYMPH # 1.6 10*3/uL (1.3-4.4); LYMPH % 16.1 % (27.0-41.0); MEAN CELL VOLUME 92.4 fl (81.0-99.0); MEAN CORPUSCULAR HGB 31.6 pg (27.0-31.0); MEAN CORPUSCULAR HGB CONC 34.2 g/dl (33.0-37.0); MEAN PLATELET VOLUME 9.1 fl (9.6-12.3); MONO # 0.5 10*3/uL (0.1-1.0); MONO % 5.1 % (3.0-9.0); NEUT # 7.9 10*3/uL (2.3-7.9); NEUT % 77.6 % (47.0-73.0); PLATELET COUNT AUTOMATED 318 10*3/uL (130-400); RED BLOOD COUNT 4.97 10*6/uL (4.10-5.10); RED CELL DISTRI WIDTH 12.5 % (0-14.5); WHITE BLOOD COUNT 10.2 10*3/uL (4.8-10.8)
[2019-01-16 16:03] LABS: ALBUMIN 4.4 gm/dl (3.1-4.5); ALKALINE PHOSPHATASE 120 U/L (45-117); BUN 10 mg/dl (7-24); CHLORIDE 110 mmol/L (98-107); CREATININE 0.58 mg/dL (0.55-1.02); SGOT/AST 10 IU/L (3-35); SGPT/ALT 18 U/L (12-78); SODIUM 140 mmol/L (136-145); TOTAL PROTEIN 7.7 gm/dL (6.4-8.2)
[2019-01-16 16:04] LABS: LIPASE 94 U/L (73-393)
[2019-01-16 16:05] VITALS: BP 138/92
[2019-01-16 16:07] LABS: TROPONIN I < 0.015 ng/ml (<0.045)
--- NOTE | 2019-01-16 16:15 | NUR ---
PT IS RESTING IN BED. NO SIGNS OF ACUTE DISTRESS AT THIS TIME.
--- NOTE | 2019-01-16 17:14 | NUR ---
HAVE BED PLACEMENT FOR PT. RESIDENTS FROM UPSTAIRS ARE AT BEDSIDE AT THIS TIME. UNABLE TO TAKE PT UP.
--- NOTE | 2019-01-16 17:24 | NUR ---
IV ACCESS HAS BEEN ACCOMPLISHED ON RIGHT FOOT BUT THIS SITE WILL NOT BE ACCEPTABLE FOR CTA. PT HAD REPORTED ON ARRIVAL THAT SHE HAS REQUIRED CENTRAL LINES AND PICC LINES FOR THE MAJORITY OF HER PAST IV ACCESS SITES. UNDER ULTRASOUND EXAMINATION I DID FIND ONE SUITABLE VEIN 2CM DEEP IN RIGHT UPPER ARM BUT IT OVERLAPS AND VERY CLOSE TO AN ARTERY AND I DO NOT FEEL COMFORTABLE IN ATTEMPTING IT. DR INFORMED. I WAS ABLE TO ACCESS A SMALL VEIN IN LEFT WRIST WITH A #[address] HAS CANCELLED THE CTA AND ORDERED VQ SCAN.
--- NOTE | 2019-01-16 17:29 | NUR ---
PT ORDERED CTA BUT UNABLE TO GET IV PLACEMENT AT AC OR ABOVE FO THIS. PHYSICIAN MADE AWARE AND GOING TO ORDER VQ SCAN. THE PT WILL BE STAYING IN THE ED AT THE REQUEST OF NUCLEAR MED UNTIL SHE IS DONE WITH THIS SCAN. FLOOR MADE AWARE.
--- NOTE | 2019-01-16 17:54 | NUR ---
PT JUST LEFT DEPT FOR VQ SCAN.
--- NOTE | 2019-01-16 19:02 | NUR ---
PT JUST RETURNED FROM VQ SCAN.
[2019-01-16 19:14] VITALS: BP 143/93
--- NOTE | 2019-01-16 19:15 | NUR ---
PT RATES PAIN BETWEEN A 3 AND A FOUR PT AT REST IN BED NO SIGN OF DISTRESS
[2019-01-16 19:45] VITALS: BP 160/90
--- NOTE | 2019-01-16 19:47 | NUR ---
A 54, admitted to , under the services of CHARO Poole DO with a diagnosis of NEAR SYNCOPE, CHEST PAIN R/O ACUTE NC. Chief complaint is CHEST PAIN. Patient arrived via stretcher from ER. Monitor applied. Initial assessment completed. Vital signs taken and recorded. CHARO POOLE DO notified of admission to the unit. Orders received. See assessment for past medical history, medications and allergies. Patient and/or family oriented to unit. [address] visitation policy reviewed. Clothing/patient valuable form completed. Medications taken to pharmacy. LUPE PABON
--- NOTE | 2019-01-16 20:26 | NUR ---
CONSULT CALLED TO DR. WARD. ALL INFORMATION AND TEST RESULTS PASSED ON.
[2019-01-16] MEDS ORDERED: BENTYL PO (20:38)
[2019-01-16] MEDS ORDERED: VITAMIN D50000 UNIT PO (20:38)
--- NOTE | 2019-01-16 20:40 | NUR ---
NOTIFIED [facility] THAT MEDICATIONS WERE UP TO DATE BASED ON WHAT PATIENT REPORTED. ALSO NOTIFIED RESIDENT THAT THE PATIENT STATES SHE IS HOMELESS.
[2019-01-17] VITALS: BP 116/82
--- NOTE | 2019-01-17 01:30 | NUR ---
24 HR chart check completed.
--- NOTE | 2019-01-17 05:34 | NUR ---
PATIENT MEDICATED WITH PRN PHENERGAN PER REQUEST BEFORE BREAKFAST. WILL MONITOR FOR EFFECTIVENESS.
--- NOTE | 2019-01-17 05:59 | NUR ---
[facility] CALLED REGARDING CONSULT THEY STATES DR. AJMES AND THEY WILL SEND CONSULT OUT TO THEM.
[2019-01-17 06:05] LABS: BASO % 0.3 % (0.0-1.0); EOS # 0.2 10*3/uL (0.0-0.4); EOS % 2.4 % (1.0-4.0); HEMATOCRIT 42.2 % (37.0-47.0); HEMOGLOBIN 14.3 g/dl (12.0-16.0); LYMPH # 3.2 10*3/uL (1.3-4.4); MEAN CORPUSCULAR HGB 31.5 pg (27.0-31.0); MEAN CORPUSCULAR HGB CONC 33.9 g/dl (33.0-37.0); MEAN PLATELET VOLUME 9.1 fl (9.6-12.3); MONO # 0.6 10*3/uL (0.1-1.0); MONO % 6.7 % (3.0-9.0); NEUT # 4.6 10*3/uL (2.3-7.9); NEUT % 53.4 % (47.0-73.0); PLATELET COUNT AUTOMATED 257 10*3/uL (130-400); RED BLOOD COUNT 4.54 10*6/uL (4.10-5.10); RED CELL DISTRI WIDTH 12.4 % (0-14.5); WHITE BLOOD COUNT 8.6 10*3/uL (4.8-10.8)
--- NOTE | 2019-01-17 06:14 | NUR ---
PATIENT NOT C/O OF NAUSEA. PRN PHENERGAN EFFECTIVE.
[2019-01-17 06:25] LABS: BUN 9 mg/dl (7-24); CHLORIDE 109 mmol/L (98-107); CHOLESTEROL 224 mg/dL (<200); PHOSPHOROUS 3.3 mg/dL (2.5-4.9); POTASSIUM 3.8 mmol/L (3.5-5.1); SODIUM 139 mmol/L (136-145)
[2019-01-17 06:37] LABS: FREE T4 1.36 ng/dl (0.76-1.46); HDL CHOLESTEROL 54 mg/dl (40-60); LDL CHOLESTEROL 146 mg/dL (9-159); THYROID STIM HORMONE (HS) 0.239 uIU/ml (0.358-4.75); TRIGLYCERIDES 121 mg/dl (<150); VLDL CHOLESTEROL 24 mg/dL (6-40)
--- NOTE | 2019-01-17 07:00 | NUR ---
PT AWAKE. BEDSIDE REPORT RECEIVED FROM OLI PEDROZA. PT HAS NO QUESTIONS/CONCERNS AT THIS TIME. BED LOW. CALL TORRES IN REACH
[2019-01-17 08:19] LABS: VITAMIN D, 25-HYDROXY 45.2 ng/mL (30-100)
--- NOTE | 2019-01-17 09:54 | NUR ---
CHART CHECK COMPLETE
--- NOTE | 2019-01-17 10:29 | NUR ---
PER PT SHE IS HOMELESS AND IS OFTEN NOT ABLE TO PAY FOR HER PRESCRIPTION MEDICATIONS. SOCIAL SERVICE CONSULT ORDERED A NURSING MEASURE.
[2019-01-17 12:00] VITALS: BP 135/73
[2019-01-17 16:00] VITALS: BP 136/62
--- NOTE | 2019-01-17 19:30 | NUR ---
PATIENT AWAKE DURING BEDSIDE REPORT. PRN TYLENOL GIVEN FOR C/O 5/10 HEADACHE. WILL MONITOR FOR EFFECTIVENESS. PATIENT REPORTS NO CHEST PAIN AT THIS TIME. CALL LIGHT WITHIN REACH. BED IN LOWEST POSITION.
[2019-01-17 20:00] VITALS: BP 106/69
--- NOTE | 2019-01-17 20:15 | NUR ---
PATIENT STATED PRN TYLENOL WAS EFFECTIVE.
--- NOTE | 2019-01-17 22:02 | NUR ---
PATIENT MEDICATED WITH PRN KLONOPIN AND PHENERGAN PER REQUEST FOR ANXIETY AND NAUSEA. WILL MONITOR FOR EFFECTIVENESS.
--- NOTE | 2019-01-17 22:50 | NUR ---
PER PATIENT PRN MEDICATIONS EFFECTIVE.
[2019-01-18] VITALS: BP 96/57
--- NOTE | 2019-01-18 00:45 | NUR ---
24 HR chart check completed.
[2019-01-18 05:42] LABS: BUN 6 mg/dl (7-24); CHLORIDE 115 mmol/L (98-107); POTASSIUM 4.1 mmol/L (3.5-5.1); SODIUM 144 mmol/L (136-145)
[2019-01-18 06:06] LABS: BASO % 0.4 % (0.0-1.0); EOS # 0.2 10*3/uL (0.0-0.4); EOS % 3.9 % (1.0-4.0); HEMATOCRIT 38.5 % (37.0-47.0); HEMOGLOBIN 12.7 g/dl (12.0-16.0); LYMPH % 55.9 % (27.0-41.0); MEAN CELL VOLUME 95.3 fl (81.0-99.0); MEAN CORPUSCULAR HGB 31.4 pg (27.0-31.0); MEAN PLATELET VOLUME 9.5 fl (9.6-12.3); MONO # 0.4 10*3/uL (0.1-1.0); MONO % 6.9 % (3.0-9.0); NEUT # 1.8 10*3/uL (2.3-7.9); NEUT % 32.7 % (47.0-73.0); PLATELET COUNT AUTOMATED 213 10*3/uL (130-400); RED BLOOD COUNT 4.04 10*6/uL (4.10-5.10); RED CELL DISTRI WIDTH 12.4 % (0-14.5); WHITE BLOOD COUNT 5.4 10*3/uL (4.8-10.8)
[2019-01-18 08:00] VITALS: BP 127/74
--- NOTE | 2019-01-18 08:03 | NUR ---
24 HR CHART CHECK COMPLETE
[2019-01-18 12:00] VITALS: BP 125/80
--- NOTE | 2019-01-18 15:09 | NUR ---
PT REQUESTED SCRIPT FOR PO CLONIPIN. PER DR LOUIE HE IS UNABLE TO WRITE SCRIPT AT THIS TIME. PT IS TO FOLLOW UP IN THE [facility] THIS WEEK AND SHE CAN REQUEST PRESCRIPTIONS. PT ASKED "IS IT TIME FOR A CLONIPIN NOW?" I EXPLAINED THAT SHE IS NOT DUE UNTIL 1700.
--- NOTE | 2019-01-18 16:08 | NUR ---
Discharge instructions reviewed with patient/family. Patient receptive and verbalizes understanding. Follow-up care arranged. Written instructions given to patient/family. JOCELYN HUFF
== END 2019-01-18 16:09 | disposition home or self-care (01) | DRG 203 ==
LOC: ED 14:16 → EDHOLD 16:55 → 4E 16:55
PROVIDERS: Emergency Medicine; Internal Medicine; ADMIT Internal Medicine
DX: M94.0 Chondrocostal junction syndrome [Tietze] (principal); F41.9 Anxiety disorder, unspecified; R00.0 Tachycardia, unspecified; E87.8 Other disorders of electrolyte and fluid balance, not elsewhere classified; R73.9 Hyperglycemia, unspecified; R06.02 Shortness of breath; K59.1 Functional diarrhea; R11.2 Nausea with vomiting, unspecified; F17.210 Nicotine dependence, cigarettes, uncomplicated; F12.10 Cannabis abuse, uncomplicated; F43.10 Post-traumatic stress disorder, unspecified; F32.9 Major depressive disorder, single episode, unspecified; I10 Essential (primary) hypertension; K21.9 Gastro-esophageal reflux disease without esophagitis; J43.9 Emphysema, unspecified; M19.90 Unspecified osteoarthritis, unspecified site; E55.9 Vitamin D deficiency, unspecified; I73.9 Peripheral vascular disease, unspecified; G89.29 Other chronic pain; E53.8 Deficiency of other specified B group vitamins; Z71.6 Tobacco abuse counseling; Z85.118 Personal history of other malignant neoplasm of bronchus and lung; Z86.711 Personal history of pulmonary embolism; I25.2 Old myocardial infarction; Z86.718 Personal history of other venous thrombosis and embolism; Z90.710 Acquired absence of both cervix and uterus; Z82.3 Family history of stroke; Z82.49 Family history of ischemic heart disease and other diseases of the circulatory system; Z88.2 Allergy status to sulfonamides; Z79.899 Other long term (current) drug therapy

== ENCOUNTER 2019-01-29 15:14 | Emergency (ER) | payer MEDICAID, MEDICARE ==
[~2019-01-29] VITALS: Ht 152.4 cm; Wt 45.4 kg
[~2019-01-29 15:14] MED LIST changes: -IBU800 MG PO; -PENICILLIN VK500 MG PO
[2019-01-29] MEDS ORDERED: IBU800 MG PO (17:14)
[2019-01-29] MEDS ORDERED: PENICILLIN VK500 MG PO (17:14)
== END 2019-01-29 17:31 | disposition home or self-care (01) ==
LOC: ED 15:14
DX: S02.5XXA Fracture of tooth (traumatic), initial encounter for closed fracture (principal); K04.7 Periapical abscess without sinus; J44.9 Chronic obstructive pulmonary disease, unspecified; G43.909 Migraine, unspecified, not intractable, without status migrainosus; I25.2 Old myocardial infarction; I10 Essential (primary) hypertension; F17.200 Nicotine dependence, unspecified, uncomplicated; Z90.710 Acquired absence of both cervix and uterus; Z86.718 Personal history of other venous thrombosis and embolism; Z88.2 Allergy status to sulfonamides; Z88.8 Allergy status to other drugs, medicaments and biological substances; Z79.899 Other long term (current) drug therapy; X58.XXXA Exposure to other specified factors, initial encounter; Y93.89 Activity, other specified; Y92.89 Other specified places as the place of occurrence of the external cause; Y99.8 Other external cause status

== ENCOUNTER → 2019-01-29 | Outpatient (CLI) | payer MEDICAID ==
[~2019-01-29] MED LIST changes: +BENTYL PO; +IBU800 MG PO; +PENICILLIN VK500 MG PO; +VITAMIN D50000 UNIT PO
== END | disposition home or self-care (01) ==
LOC: RESCLI 01:11
DX: F43.10 Post-traumatic stress disorder, unspecified (principal); K08.89 Other specified disorders of teeth and supporting structures; F33.41 Major depressive disorder, recurrent, in partial remission; I10 Essential (primary) hypertension; C34.91 Malignant neoplasm of unspecified part of right bronchus or lung; J43.2 Centrilobular emphysema; E55.9 Vitamin D deficiency, unspecified; K21.9 Gastro-esophageal reflux disease without esophagitis; K51.00 Ulcerative (chronic) pancolitis without complications; E78.5 Hyperlipidemia, unspecified; I73.9 Peripheral vascular disease, unspecified; G89.29 Other chronic pain; E05.90 Thyrotoxicosis, unspecified without thyrotoxic crisis or storm; F33.1 Major depressive disorder, recurrent, moderate; I25.10 Atherosclerotic heart disease of native coronary artery without angina pectoris; Z79.899 Other long term (current) drug therapy

== ENCOUNTER → 2019-02-13 | Outpatient (CLI) | payer MEDICAID ==
[~2019-02-13] MED LIST changes: +IBU800 MG PO; +PENICILLIN VK500 MG PO
== END | disposition home or self-care (01) ==
LOC: RESCLI 00:48
DX: K21.9 Gastro-esophageal reflux disease without esophagitis (principal); J44.9 Chronic obstructive pulmonary disease, unspecified; G35 Multiple sclerosis; G89.4 Chronic pain syndrome; E55.9 Vitamin D deficiency, unspecified; J30.2 Other seasonal allergic rhinitis; B02.9 Zoster without complications; K59.00 Constipation, unspecified; R63.6 Underweight; Z79.899 Other long term (current) drug therapy; Z88.8 Allergy status to other drugs, medicaments and biological substances

== ENCOUNTER 2019-03-12 15:46 | Emergency (ER) | payer MEDICAID ==
[~2019-03-12] VITALS: Ht 152.4 cm; Wt 45.4 kg
[2019-03-12 16:33] LABS: BASO % 0.2 % (0.0-1.0); EOS % 0.2 % (1.0-4.0); HEMATOCRIT 43.6 % (37.0-47.0); HEMOGLOBIN 14.6 g/dl (12.0-16.0); LYMPH # 1.5 10*3/uL (1.3-4.4); LYMPH % 17.4 % (27.0-41.0); MEAN CELL VOLUME 92.2 fl (81.0-99.0); MEAN CORPUSCULAR HGB 30.9 pg (27.0-31.0); MEAN CORPUSCULAR HGB CONC 33.5 g/dl (33.0-37.0); MEAN PLATELET VOLUME 9.2 fl (9.6-12.3); MONO # 0.5 10*3/uL (0.1-1.0); MONO % 5.6 % (3.0-9.0); NEUT # 6.6 10*3/uL (2.3-7.9); NEUT % 76.4 % (47.0-73.0); PLATELET COUNT AUTOMATED 301 10*3/uL (130-400); RED BLOOD COUNT 4.73 10*6/uL (4.10-5.10); RED CELL DISTRI WIDTH 12.5 % (0-14.5); WHITE BLOOD COUNT 8.6 10*3/uL (4.8-10.8)
[2019-03-12 16:49] LABS: ALBUMIN 4.2 gm/dl (3.1-4.5); ALKALINE PHOSPHATASE 110 U/L (45-117); BUN 7 mg/dl (7-24); CHLORIDE 112 mmol/L (98-107); CREATININE 0.68 mg/dL (0.55-1.02); POTASSIUM 3.5 mmol/L (3.5-5.1); SGOT/AST 23 IU/L (3-35); SGPT/ALT 21 U/L (12-78); SODIUM 143 mmol/L (136-145); TOTAL PROTEIN 7.8 gm/dL (6.4-8.2)
[2019-03-12 16:51] LABS: ACETAMINOPHEN (TYLENOL) < 5.0 ug/ml (10-30); ETHYL ALCOHOL < 3.0 mg/dl (<3)
[2019-03-12 16:54] LABS: BILIRUBIN 2+ (NEGATIVE); BLOOD NEGATIVE (NEGATIVE); CLARITY CLEAR (CLEAR); COLOR YELLOW (YELLOW); GLUCOSE NEGATIVE (NEGATIVE); KETONE 2+ (NEGATIVE); LEUKO ESTERASE NEGATIVE (NEGATIVE); NITRITE NEGATIVE (NEGATIVE); SPECIFIC GRAVITY >= 1.030 (1.005-1.030); UROBILINOGEN 0.2 E.U./dl (0.2-1.0)
[2019-03-12 17:02] LABS: URINE AMPHETAMINES < 1000 (1000ng/ml); URINE BARBITURATES < 200 (200ng/ml); URINE BENZODIAZEPINES < 200 (200ng/ml); URINE CANNABINOIDS (THC) > 50 (50ng/ml); URINE COCAINE < 300 (300ng/ml); URINE METHADONE < 300 (300ng/ml); URINE OPIATES < 300 (300ng/ml)
[2019-03-12 17:03] LABS: URINE PHENCYCLIDINE < 25 (25ng/ml)
[2019-03-12 17:17] LABS: CALCIUM OXALATE CRYSTALS 1+; MUCOUS 1+
== END 2019-03-12 20:45 | disposition home or self-care (01) ==
LOC: ED 15:46
PROVIDERS: Nurse Practitioner Family
DX: F41.9 Anxiety disorder, unspecified (principal); J44.9 Chronic obstructive pulmonary disease, unspecified; G43.909 Migraine, unspecified, not intractable, without status migrainosus; F17.200 Nicotine dependence, unspecified, uncomplicated; Z88.2 Allergy status to sulfonamides; Z88.8 Allergy status to other drugs, medicaments and biological substances; Z79.899 Other long term (current) drug therapy; Z79.2 Long term (current) use of antibiotics; Z90.710 Acquired absence of both cervix and uterus

== ENCOUNTER → 2019-03-17 | Outpatient (CLI) | payer MEDICAID | END | disposition home or self-care (01) | LOC: RESCLI 00:54 | DX: I10 Essential (primary) hypertension (principal); K58.0 Irritable bowel syndrome with diarrhea; F43.10 Post-traumatic stress disorder, unspecified; I73.9 Peripheral vascular disease, unspecified; E53.8 Deficiency of other specified B group vitamins; R00.0 Tachycardia, unspecified; E78.2 Mixed hyperlipidemia; I24.9 Acute ischemic heart disease, unspecified; J43.9 Emphysema, unspecified; F17.200 Nicotine dependence, unspecified, uncomplicated; K21.9 Gastro-esophageal reflux disease without esophagitis; R45.851 Suicidal ideations; Z79.899 Other long term (current) drug therapy; Z71.6 Tobacco abuse counseling; Z88.2 Allergy status to sulfonamides; Z88.8 Allergy status to other drugs, medicaments and biological substances ==

== ENCOUNTER → 2019-05-14 | Outpatient (CLI) | payer MEDICAID | END | disposition home or self-care (01) | LOC: RESCLI 00:18 | DX: Z71.6 Tobacco abuse counseling (principal); F13.239 Sedative, hypnotic or anxiolytic dependence with withdrawal, unspecified; F43.10 Post-traumatic stress disorder, unspecified; F33.41 Major depressive disorder, recurrent, in partial remission; I10 Essential (primary) hypertension; C34.91 Malignant neoplasm of unspecified part of right bronchus or lung; J43.2 Centrilobular emphysema; E55.9 Vitamin D deficiency, unspecified; K21.9 Gastro-esophageal reflux disease without esophagitis; E78.5 Hyperlipidemia, unspecified; I73.9 Peripheral vascular disease, unspecified; G89.29 Other chronic pain; E05.90 Thyrotoxicosis, unspecified without thyrotoxic crisis or storm; F33.1 Major depressive disorder, recurrent, moderate; I25.10 Atherosclerotic heart disease of native coronary artery without angina pectoris; K08.89 Other specified disorders of teeth and supporting structures; K58.0 Irritable bowel syndrome with diarrhea; E78.2 Mixed hyperlipidemia; I24.9 Acute ischemic heart disease, unspecified; E53.8 Deficiency of other specified B group vitamins; F17.200 Nicotine dependence, unspecified, uncomplicated; Z90.89 Acquired absence of other organs; Z85.118 Personal history of other malignant neoplasm of bronchus and lung; Z88.2 Allergy status to sulfonamides; Z88.8 Allergy status to other drugs, medicaments and biological substances ==

== ENCOUNTER → 2019-06-04 | Outpatient (CLI) | payer OTHER | END | disposition home or self-care (01) | LOC: RESCLI 00:56 | DX: C34.91 Malignant neoplasm of unspecified part of right bronchus or lung (principal); Z71.6 Tobacco abuse counseling; F13.239 Sedative, hypnotic or anxiolytic dependence with withdrawal, unspecified; F43.10 Post-traumatic stress disorder, unspecified; F33.41 Major depressive disorder, recurrent, in partial remission; I10 Essential (primary) hypertension; J43.2 Centrilobular emphysema; G89.29 Other chronic pain; E55.9 Vitamin D deficiency, unspecified; K21.9 Gastro-esophageal reflux disease without esophagitis; E78.5 Hyperlipidemia, unspecified; I73.9 Peripheral vascular disease, unspecified; E05.90 Thyrotoxicosis, unspecified without thyrotoxic crisis or storm; F33.1 Major depressive disorder, recurrent, moderate; I25.10 Atherosclerotic heart disease of native coronary artery without angina pectoris; K08.89 Other specified disorders of teeth and supporting structures; K58.0 Irritable bowel syndrome with diarrhea; E78.2 Mixed hyperlipidemia; I24.9 Acute ischemic heart disease, unspecified; E53.8 Deficiency of other specified B group vitamins; Z79.899 Other long term (current) drug therapy; Z85.118 Personal history of other malignant neoplasm of bronchus and lung; Z90.89 Acquired absence of other organs; Z88.8 Allergy status to other drugs, medicaments and biological substances ==

== ENCOUNTER → 2019-06-23 | Outpatient (CLI) | payer OTHER | END | disposition home or self-care (01) | LOC: CT 11:00 | DX: J43.9 Emphysema, unspecified (principal); Z98.890 Other specified postprocedural states; Z85.118 Personal history of other malignant neoplasm of bronchus and lung ==

== ENCOUNTER 2019-11-01 21:22 | Emergency (ER) | payer OTHER ==
[~2019-11-01] VITALS: Wt 43.3 kg
[2019-11-01 21:49] LABS: BASO % 0.4 % (0.0-1.0); EOS # 0.1 10*3/uL (0.0-0.4); EOS % 0.5 % (1.0-4.0); HEMATOCRIT 45.2 % (37.0-47.0); LYMPH # 1.8 10*3/uL (1.3-4.4); MEAN CELL VOLUME 89.5 fl (81.0-99.0); MEAN CORPUSCULAR HGB 29.9 pg (27.0-31.0); MEAN CORPUSCULAR HGB CONC 33.4 g/dl (33.0-37.0); MEAN PLATELET VOLUME 8.6 fl (9.6-12.3); MONO # 0.5 10*3/uL (0.1-1.0); MONO % 5.1 % (3.0-9.0); NEUT # 7.5 10*3/uL (2.3-7.9); NEUT % 75.7 % (47.0-73.0); PLATELET COUNT AUTOMATED 267 10*3/uL (130-400); RED BLOOD COUNT 5.05 10*6/uL (4.10-5.10); RED CELL DISTRI WIDTH 13.2 % (0-14.5); WHITE BLOOD COUNT 9.9 10*3/uL (4.8-10.8)
[2019-11-01 22:04] LABS: ALBUMIN 3.8 gm/dl (3.1-4.5); ALKALINE PHOSPHATASE 112 U/L (45-117); BUN 9 mg/dl (7-24); CHLORIDE 108 mmol/L (98-107); CREATININE 0.73 mg/dL (0.55-1.02); POTASSIUM 3.2 mmol/L (3.5-5.1); SGOT/AST 23 IU/L (3-35); SGPT/ALT 28 U/L (12-78); SODIUM 140 mmol/L (136-145); TOTAL PROTEIN 7.7 gm/dL (6.4-8.2)
[2019-11-01 22:57] LABS: CLARITY CLEAR (CLEAR); COLOR YELLOW (YELLOW)
[2019-11-01 23:00] LABS: BILIRUBIN NEGATIVE (NEGATIVE); BLOOD NEGATIVE (NEGATIVE); GLUCOSE TRACE (NEGATIVE); KETONE 1+ (NEGATIVE); LEUKO ESTERASE NEGATIVE (NEGATIVE); NITRITE NEGATIVE (NEGATIVE); UROBILINOGEN 0.2 E.U./dl (0.2-1.0)
[2019-11-01 23:05] LABS: BACTERIA 1+; CALCIUM OXALATE CRYSTALS TR; HYALINE CAST TNTC
[2019-11-01 23:06] LABS: URINE AMPHETAMINES < 1000 (1000ng/ml); URINE BARBITURATES < 200 (200ng/ml); URINE BENZODIAZEPINES < 200 (200ng/ml); URINE CANNABINOIDS (THC) > 50 (50ng/ml); URINE COCAINE < 300 (300ng/ml); URINE METHADONE < 300 (300ng/ml); URINE OPIATES < 300 (300ng/ml)
[2019-11-01 23:08] LABS: URINE PHENCYCLIDINE < 25 (25ng/ml)
== END 2019-11-02 00:28 | disposition home or self-care (01) ==
LOC: ED 21:22
PROVIDERS: Emergency Medicine
DX: F41.9 Anxiety disorder, unspecified (principal); R06.02 Shortness of breath; F17.200 Nicotine dependence, unspecified, uncomplicated; Z88.2 Allergy status to sulfonamides; Z88.8 Allergy status to other drugs, medicaments and biological substances; Z79.899 Other long term (current) drug therapy

== ENCOUNTER → 2019-11-02 | Outpatient (CLI) | payer OTHER | END | disposition home or self-care (01) | LOC: RESCLI 03:21 | DX: R07.9 Chest pain, unspecified (principal); F41.9 Anxiety disorder, unspecified; F43.10 Post-traumatic stress disorder, unspecified; I10 Essential (primary) hypertension; K21.9 Gastro-esophageal reflux disease without esophagitis; C34.90 Malignant neoplasm of unspecified part of unspecified bronchus or lung; J43.9 Emphysema, unspecified; Z90.710 Acquired absence of both cervix and uterus ==

== ENCOUNTER → 2019-11-04 | Outpatient (CLI) | payer OTHER | END | disposition home or self-care (01) | LOC: COVID19 00:24 | DX: Z01.818 Encounter for other preprocedural examination (principal) ==

== ENCOUNTER 2019-11-17 23:08 | Observation (INO) | payer OTHER ==
[~2019-11-17] VITALS: Ht 149.8 cm; Wt 41.5 kg
[~2019-11-17 23:08] MED LIST changes: +VITAMIN D31250 MCG PO; -VITAMIN D50000 UNIT PO
[2019-11-17 23:13] VITALS: BP 176/98
[2019-11-18 00:33] LABS: BASO % 0.1 % (0.0-1.0); LYMPH # 0.9 10*3/uL (1.3-4.4); LYMPH % 6.5 % (27.0-41.0); MEAN CELL VOLUME 89.3 fl (81.0-99.0); MEAN CORPUSCULAR HGB 29.6 pg (27.0-31.0); MEAN CORPUSCULAR HGB CONC 33.1 g/dl (33.0-37.0); MEAN PLATELET VOLUME 8.9 fl (9.6-12.3); MONO # 0.6 10*3/uL (0.1-1.0); MONO % 4.1 % (3.0-9.0); NEUT # 12.3 10*3/uL (2.3-7.9); NEUT % 88.8 % (47.0-73.0); PLATELET COUNT AUTOMATED 283 10*3/uL (130-400); RED BLOOD COUNT 5.04 10*6/uL (4.10-5.10); RED CELL DISTRI WIDTH 12.7 % (0-14.5); WHITE BLOOD COUNT 13.8 10*3/uL (4.8-10.8)
[2019-11-18 00:54] LABS: ALBUMIN 3.9 gm/dl (3.1-4.5); ALKALINE PHOSPHATASE 122 U/L (45-117); BUN 8 mg/dl (7-24); CHLORIDE 108 mmol/L (98-107); CREATININE 0.69 mg/dL (0.55-1.02); POTASSIUM 4.5 mmol/L (3.5-5.1); SGOT/AST 20 IU/L (3-35); SGPT/ALT 29 U/L (12-78); SODIUM 139 mmol/L (136-145); TOTAL PROTEIN 7.9 gm/dL (6.4-8.2)
[2019-11-18 00:55] LABS: TROPONIN I < 0.015 ng/ml (<0.045)
--- NOTE | 2019-11-18 01:35 | NUR ---
PT AMBULATORY TO AND FROM RESTROOM.FLUIDS CONTINUE TO INFUSE.
[2019-11-18 01:40] VITALS: BP 168/85
[2019-11-18 02:42] LABS: BILIRUBIN NEGATIVE (NEGATIVE); BLOOD NEGATIVE (NEGATIVE); CLARITY CLEAR (CLEAR); COLOR YELLOW (YELLOW); GLUCOSE 2+ (NEGATIVE); KETONE NEGATIVE (NEGATIVE); LEUKO ESTERASE NEGATIVE (NEGATIVE); NITRITE NEGATIVE (NEGATIVE); UROBILINOGEN 0.2 E.U./dl (0.2-1.0)
[2019-11-18 04:10] VITALS: BP 157/85
--- NOTE | 2019-11-18 04:11 | NUR ---
PT DENIES ANY OPEN WOUNDS,SORES OR CUTS.
--- NOTE | 2019-11-18 04:26 | NUR ---
ROOM ASSIGNMENT OBTAINED.PT AWAITING TRANSFER TO FLOOR.
--- NOTE | 2019-11-18 04:50 | NUR ---
A 54, admitted to , under the services of JAMIR Bustos DO with a diagnosis of INTRACTABLE VOMITING. Chief complaint is NAUSEA/VOMITING. Patient arrived via ambulatory from ER. Monitor applied. Initial assessment completed. Vital signs taken and recorded. JAMIR BUSTOS DO notified of admission to the unit. Orders received. See assessment for past medical history, medications and allergies. Patient and/or family oriented to unit. [facility] visitation policy reviewed. Clothing/patient valuable form completed. SALVADOR POST
[2019-11-18] MEDS ORDERED: DICYCLOMINE HCL10 MG PO (05:06)
[2019-11-18] MEDS ORDERED: CLONAZEPAM0.5 M2 PO (05:08)
[2019-11-18] MEDS ORDERED: VENLAFAXINE HYD75 M3 PO (05:13)
[2019-11-18 06:10] LABS: ALBUMIN 3.9 gm/dl (3.1-4.5); ALKALINE PHOSPHATASE 120 U/L (45-117); BUN 7 mg/dl (7-24); CHLORIDE 107 mmol/L (98-107); CREATININE 0.62 mg/dL (0.55-1.02); POTASSIUM 4.7 mmol/L (3.5-5.1); SGOT/AST 18 IU/L (3-35); SGPT/ALT 25 U/L (12-78); SODIUM 141 mmol/L (136-145); TOTAL PROTEIN 7.9 gm/dL (6.4-8.2)
[2019-11-18 06:11] LABS: BASO % 0.2 % (0.0-1.0); HEMATOCRIT 45.1 % (37.0-47.0); LYMPH % 8.1 % (27.0-41.0); MEAN CELL VOLUME 91.5 fl (81.0-99.0); MEAN CORPUSCULAR HGB 30.6 pg (27.0-31.0); MEAN CORPUSCULAR HGB CONC 33.5 g/dl (33.0-37.0); MEAN PLATELET VOLUME 9.2 fl (9.6-12.3); MONO # 0.6 10*3/uL (0.1-1.0); MONO % 4.3 % (3.0-9.0); NEUT # 11.2 10*3/uL (2.3-7.9); NEUT % 87.1 % (47.0-73.0); PLATELET COUNT AUTOMATED 279 10*3/uL (130-400); RED BLOOD COUNT 4.93 10*6/uL (4.10-5.10); RED CELL DISTRI WIDTH 12.9 % (0-14.5); WHITE BLOOD COUNT 12.9 10*3/uL (4.8-10.8)
--- NOTE | 2019-11-18 06:17 | NUR ---
NOTIFIED OF LACTIC 2.8. ALSO AWARE OF MED REC UP TO DATE PER PT RECALL/MED CLAIMS HX
[2019-11-18 08:00] VITALS: BP 132/78
--- NOTE | 2019-11-18 08:30 | NUR ---
MEDICATED WITH PRN TYLENOL AND KLONOPIN PER ORDERS AND REQUEST. PATIENT HAS MULTIPLE COMPLAINTS. HEADACHE,ABDOMEN HURTS,NAUSEATED,VOMITING,DIARRHEA,NEEDS HER HEAR RATE DOWN.
--- NOTE | 2019-11-18 08:46 | NUR ---
mESSAGE WAS LEFT ON dR. Guerrero Cell phone as [employer] phones do not work at this time critical finding of LA 2.7 was reported.
--- NOTE | 2019-11-18 09:00 | NUR ---
Boom Tender in to talk to patient. Patient states lives at home with alone. There are no steps in the home. Physician: resident clinic Pharmacy: [facility] Home health services: none Patient's level of ADLs: INDEPENDENT Patient has working utilities: all working DME: none Follow-up physician's appointment after d/c: will be made by hospitalist nurse director upon discharge Does patient want to access PORTAL?: no Discharge plan discussed with patient, she states she lives in an apartment alone, she is independent in adls and ambulation, she states she will return home when discharged, discussed with her VNA and educated on the services they provide, she declines any home needs, she stated she doesn't drive and her family has been going to get her groceries, she states her family will transport home when discharged. LALO SMITH
--- NOTE | 2019-11-18 09:10 | NUR ---
KLONOPIN AND TYLENOL HELPED.
[2019-11-18 10:11] LABS: CHOLESTEROL 241 mg/dL (<200); HDL CHOLESTEROL 85 mg/dl (40-60); LDL CHOLESTEROL 137 mg/dL (9-159); LIPASE 52 U/L (73-393); TRIGLYCERIDES 94 mg/dl (<150); VLDL CHOLESTEROL 19 mg/dL (6-40)
[2019-11-18 12:00] VITALS: BP 150/82
[2019-11-18 16:00] VITALS: BP 118/72
[2019-11-18] MEDS ORDERED: ZOFRAN4 MG PO (16:51)
[2019-11-18] MEDS ORDERED: PEPCID40 MG PO (16:51)
--- NOTE | 2019-11-18 17:16 | NUR ---
FE DISCHARGED TO HOME.
== END 2019-11-18 17:16 | disposition home or self-care (01) ==
LOC: ED 23:08 → EDHOLD 11-18 03:44 → 4E 11-18 04:14
PROVIDERS: Emergency Medicine; Hospitalist; Internal Medicine; Student in an Organized Health Care Education/Training Program; ADMIT Family Medicine
DX: R11.2 Nausea with vomiting, unspecified (principal); R07.89 Other chest pain; D72.829 Elevated white blood cell count, unspecified; R73.9 Hyperglycemia, unspecified; F17.200 Nicotine dependence, unspecified, uncomplicated

== ENCOUNTER 2020-01-02 21:11 | Inpatient (IN) | payer OTHER ==
[~2020-01-02] VITALS: Ht 149.8 cm; Wt 40.1 kg
[~2020-01-02 21:11] MED LIST changes: +CLONAZEPAM0.5 M2 PO; +DICYCLOMINE HCL10 MG PO; +PEPCID40 MG PO; +VENLAFAXINE HYD75 M3 PO
[2020-01-02 21:23] VITALS: BP 138/108
[2020-01-02 23:39] LABS: BASO % 0.2 % (0.0-1.0); EOS % 0.3 % (1.0-4.0); HEMATOCRIT 45.1 % (37.0-47.0); LYMPH # 2.2 10*3/uL (1.3-4.4); LYMPH % 23.3 % (27.0-41.0); MEAN CELL VOLUME 88.1 fl (81.0-99.0); MEAN CORPUSCULAR HGB 29.7 pg (27.0-31.0); MEAN CORPUSCULAR HGB CONC 33.7 g/dl (33.0-37.0); MEAN PLATELET VOLUME 8.9 fl (9.6-12.3); MONO # 0.9 10*3/uL (0.1-1.0); MONO % 8.8 % (3.0-9.0); NEUT # 6.4 10*3/uL (2.3-7.9); PLATELET COUNT AUTOMATED 250 10*3/uL (130-400); RED BLOOD COUNT 5.12 10*6/uL (4.10-5.10); RED CELL DISTRI WIDTH 12.9 % (0-14.5); WHITE BLOOD COUNT 9.6 10*3/uL (4.8-10.8)
[2020-01-02 23:54] LABS: ALKALINE PHOSPHATASE 122 U/L (45-117); BUN 10 mg/dl (7-24); CHLORIDE 107 mmol/L (98-107); CREATININE 0.54 mg/dL (0.55-1.02); POTASSIUM 3.6 mmol/L (3.5-5.1); SGOT/AST 10 IU/L (3-35); SGPT/ALT 17 U/L (12-78); SODIUM 139 mmol/L (136-145)
[2020-01-03] VITALS: BP 140/80
[2020-01-03 02:30] VITALS: BP 144/84
[2020-01-03 03:00] VITALS: BP 138/97
[2020-01-03 03:46] LABS: BASO % 0.2 % (0.0-1.0); EOS # 0.1 10*3/uL (0.0-0.4); EOS % 1.4 % (1.0-4.0); HEMATOCRIT 46.9 % (37.0-47.0); LYMPH # 2.6 10*3/uL (1.3-4.4); LYMPH % 29.7 % (27.0-41.0); MEAN CELL VOLUME 89.5 fl (81.0-99.0); MEAN CORPUSCULAR HGB 29.6 pg (27.0-31.0); MEAN PLATELET VOLUME 8.9 fl (9.6-12.3); MONO # 0.9 10*3/uL (0.1-1.0); MONO % 9.7 % (3.0-9.0); NEUT # 5.1 10*3/uL (2.3-7.9); NEUT % 58.8 % (47.0-73.0); PLATELET COUNT AUTOMATED 253 10*3/uL (130-400); RED BLOOD COUNT 5.24 10*6/uL (4.10-5.10); RED CELL DISTRI WIDTH 13.1 % (0-14.5); WHITE BLOOD COUNT 8.7 10*3/uL (4.8-10.8)
[2020-01-03 04:02] LABS: ALKALINE PHOSPHATASE 123 U/L (45-117); BUN 10 mg/dl (7-24); CHLORIDE 107 mmol/L (98-107); CREATININE 0.52 mg/dL (0.55-1.02); POTASSIUM 3.6 mmol/L (3.5-5.1); SGOT/AST 10 IU/L (3-35); SGPT/ALT 16 U/L (12-78); SODIUM 139 mmol/L (136-145)
[2020-01-03] MEDS ORDERED: LOPRESSOR25 MG PO (04:08)
[2020-01-03] MEDS ORDERED: BUSPIRONE HCL10 MG PO (04:14)
[2020-01-03] MEDS ORDERED: HYDROXYZINE PAM50 MG PO (04:16)
[2020-01-03 12:00] VITALS: BP 159/89
[2020-01-03 16:30] VITALS: BP 140/80
[2020-01-03 20:00] VITALS: BP 154/94
[2020-01-04] VITALS: BP 156/80; BP 161/93
[2020-01-04 04:00] VITALS: BP 149/84
[2020-01-04 06:35] LABS: ALBUMIN 3.5 gm/dl (3.1-4.5); ALKALINE PHOSPHATASE 103 U/L (45-117); BUN 6 mg/dl (7-24); CHLORIDE 104 mmol/L (98-107); CREATININE 0.41 mg/dL (0.55-1.02); POTASSIUM 3.1 mmol/L (3.5-5.1); SGOT/AST 7 IU/L (3-35); SGPT/ALT 16 U/L (12-78); SODIUM 136 mmol/L (136-145); TOTAL PROTEIN 7.6 gm/dL (6.4-8.2)
[2020-01-04 06:43] LABS: THYROID STIM HORMONE (HS) 0.156 uIU/ml (0.358-4.75)
[2020-01-04 08:00] VITALS: BP 145/71
[2020-01-04 12:00] VITALS: BP 146/75
[2020-01-04 16:00] VITALS: BP 136/71
[2020-01-04 20:00] VITALS: BP 154/90
[2020-01-05] VITALS: BP 124/66
[2020-01-05 06:25] LABS: BUN 8 mg/dl (7-24); CHLORIDE 107 mmol/L (98-107); CREATININE 0.52 mg/dL (0.55-1.02); SODIUM 137 mmol/L (136-145)
[2020-01-05 06:29] LABS: BASO % 0.1 % (0.0-1.0); EOS # 0.2 10*3/uL (0.0-0.4); EOS % 2.2 % (1.0-4.0); LYMPH # 2.1 10*3/uL (1.3-4.4); LYMPH % 22.3 % (27.0-41.0); MEAN CELL VOLUME 89.1 fl (81.0-99.0); MEAN CORPUSCULAR HGB 30.2 pg (27.0-31.0); MEAN CORPUSCULAR HGB CONC 33.9 g/dl (33.0-37.0); MEAN PLATELET VOLUME 9.1 fl (9.6-12.3); MONO # 0.7 10*3/uL (0.1-1.0); MONO % 7.6 % (3.0-9.0); NEUT # 6.5 10*3/uL (2.3-7.9); NEUT % 67.4 % (47.0-73.0); PLATELET COUNT AUTOMATED 255 10*3/uL (130-400); RED BLOOD COUNT 4.94 10*6/uL (4.10-5.10); RED CELL DISTRI WIDTH 12.7 % (0-14.5); WHITE BLOOD COUNT 9.6 10*3/uL (4.8-10.8)
[2020-01-05 08:00] VITALS: BP 104/72
[2020-01-05 12:00] VITALS: BP 142/77
[2020-01-05 16:00] VITALS: BP 126/80
[2020-01-05 20:00] VITALS: BP 139/74
[2020-01-06] VITALS (12 sets, daily range): BP systolic 141–189; BP diastolic 68–100
[2020-01-06 06:54] LABS: BUN 5 mg/dl (7-24); CHLORIDE 108 mmol/L (98-107); POTASSIUM 2.5 mmol/L (3.5-5.1); SODIUM 141 mmol/L (136-145)
[2020-01-06 14:18] LABS: BUN 3 mg/dl (7-24); CHLORIDE 104 mmol/L (98-107); CREATININE 0.34 mg/dL (0.55-1.02); POTASSIUM 3.1 mmol/L (3.5-5.1); SODIUM 135 mmol/L (136-145)
[2020-01-07] VITALS: BP 180/100
[2020-01-07 00:30] VITALS: BP 160/80
[2020-01-07 04:00] VITALS: BP 130/80
[2020-01-07 06:43] LABS: BUN 8 mg/dl (7-24); CHLORIDE 103 mmol/L (98-107); CREATININE 0.57 mg/dL (0.55-1.02); POTASSIUM 3.7 mmol/L (3.5-5.1); SODIUM 136 mmol/L (136-145)
[2020-01-07 08:00] VITALS: BP 178/102
[2020-01-07 09:35] VITALS: BP 170/84
[2020-01-07] MEDS ORDERED: METOPROLOL TART50 M1 PO (10:42)
[2020-01-07] MEDS ORDERED: Carafate1 GM PO (10:42)
[2020-01-07] MEDS ORDERED: PANTOPRAZOLE SO40 MG PO (10:42)
[2020-01-07] MEDS ORDERED: TRINTELLIX10 MG PO (10:42)
[2020-01-07] MEDS ORDERED: AUGMENTIN 875875 MG PO (10:42)
[2020-01-07] MEDS ORDERED: BUSPIRONE HCL10 MG PO (10:42)
[2020-01-07] MEDS ORDERED: VENLAFAXINE HYD75 M3 PO (10:42)
[2020-01-07 12:00] VITALS: BP 135/88
[2020-01-07] MEDS ORDERED: ROZEREM8 MG PO (15:09)
== END 2020-01-07 14:55 | disposition home health service (06) | DRG 720 ==
LOC: ED 21:11 → EDHOLD 01-03 02:13 → 5E 01-03 02:13 → 4E 01-03 02:22 → 5E 01-03 09:40
PROVIDERS: Emergency Medicine; Family Medicine; Nurse Practitioner Women's Health; Student in an Organized Health Care Education/Training Program; ADMIT Internal Medicine; ATTEND Internal Medicine
PROC: 0DB78ZX Excision of Stomach, Pylorus, Via Natural or Artificial Opening Endoscopic, Diagnostic (ICD-10-PCS; principal; 2020-01-06)
PROC: 0DB48ZX Excision of Esophagogastric Junction, Via Natural or Artificial Opening Endoscopic, Diagnostic (ICD-10-PCS; 2020-01-06)
DX: A41.9 Sepsis, unspecified organism (principal); K04.7 Periapical abscess without sinus; L03.211 Cellulitis of face; J43.9 Emphysema, unspecified; F12.10 Cannabis abuse, uncomplicated; G89.29 Other chronic pain; R59.0 Localized enlarged lymph nodes; I73.9 Peripheral vascular disease, unspecified; R74.8 Abnormal levels of other serum enzymes; R73.9 Hyperglycemia, unspecified; R45.851 Suicidal ideations; I24.9 Acute ischemic heart disease, unspecified; D75.1 Secondary polycythemia; I10 Essential (primary) hypertension; M19.90 Unspecified osteoarthritis, unspecified site; R63.6 Underweight; E55.9 Vitamin D deficiency, unspecified; K52.9 Noninfective gastroenteritis and colitis, unspecified; F43.10 Post-traumatic stress disorder, unspecified; K29.70 Gastritis, unspecified, without bleeding; K25.9 Gastric ulcer, unspecified as acute or chronic, without hemorrhage or perforation; F32.2 Major depressive disorder, single episode, severe without psychotic features; K00.7 Teething syndrome; K02.9 Dental caries, unspecified; K21.9 Gastro-esophageal reflux disease without esophagitis; F41.1 Generalized anxiety disorder; F17.210 Nicotine dependence, cigarettes, uncomplicated; Z71.6 Tobacco abuse counseling; Z85.118 Personal history of other malignant neoplasm of bronchus and lung; I25.2 Old myocardial infarction; Z88.2 Allergy status to sulfonamides; Z88.8 Allergy status to other drugs, medicaments and biological substances; Z90.710 Acquired absence of both cervix and uterus; Z82.3 Family history of stroke; Z82.49 Family history of ischemic heart disease and other diseases of the circulatory system; Z83.3 Family history of diabetes mellitus; Z79.899 Other long term (current) drug therapy; Z91.5 Personal history of self-harm; Z68.1 Body mass index [BMI] 19.9 or less, adult

== ENCOUNTER 2020-01-07 11:44 | Inpatient (IN) | payer OTHER ==
[~2020-01-07] VITALS: Ht 151.1 cm; Wt 39.9 kg
[~2020-01-07 11:44] MED LIST changes: +AUGMENTIN 875875 MG PO; +BUSPIRONE HCL10 MG PO; +Carafate1 GM PO; +HYDROXYZINE PAM50 MG PO; +METOPROLOL TART50 M1 PO; +PANTOPRAZOLE SO40 MG PO; +TRINTELLIX10 MG PO
--- NOTE | 2020-01-07 15:00 | NUR ---
JUSTIN VERGARA a 54 year old F admitted via wheel chair from the [address] FLOOR as a voluntary admission. Arrived on unit at 1500. ALLERGIES: BACTRIM, SULFA, IMITREX, MAXALT. Vital signs are: 97.0-100-16 127/97. 96% ROOM AIR. The client signed the following forms with stated understanding: Authorization For The Release of Medical Information, Clothing List, Consent to Voluntary Admission and Hospitalization, Consent and Release Forms/Receipt of Rights, Acknowledgement of Advance Directive Information, Behavioral Health Consent Form, and Informed Consent of Medications. Admitted under the services of Dr. LJ MONTEZ,[facility]. A search was conducted and hazardous articles were removed. Client was oriented to the unit. NALLELY LUNDY
[2020-01-07] MEDS ORDERED: ROZEREM8 MG PO (15:09)
--- NOTE | 2020-01-07 15:14 | NUR ---
SPOKE WITH DR SIMON RE: PT ADMISSION AND MEDICAL MEDS NEEDING COMPLETED PER DR EL CONSULT UNDER DR RAY
[2020-01-07 15:36] VITALS: BP 127/97
[2020-01-07 17:02] VITALS: BP 122/80
[2020-01-07 19:56] VITALS: BP 111/77
--- NOTE | 2020-01-07 21:37 | NUR ---
Patient alert and oriented x4. Mood calm,pleasant,cooperative,but isolative to self. Patient interactive with nursing staff only. Patient said "I feel ok right now". Encouraged patient to contract for safety when having dangerous thoughts of harming herself. Patient denies any hallucinations. No s/s of any responding to internal stimuli at this time. Patient compliant with HS medications. Provided 1:1 for emotional support. Plan to continue to encourage medication compliance. Also continue to offer emotional support and encourage patient to contract for safety. Will also continue to monitor moods/behaviors. Q 15 minute safety checks continued and maintained. See [facility] flowsheet for further documentation.
--- NOTE | 2020-01-08 00:19 | NUR ---
24 HR chart check completed.
--- NOTE | 2020-01-08 05:39 | NUR ---
Patient slept 0 hours throughout shift. Q 15 minute safety checks continued and maintained.
[2020-01-08 06:26] LABS: HEMATOCRIT 47.1 % (37.0-47.0); MEAN CELL VOLUME 87.4 fl (81.0-99.0); MEAN CORPUSCULAR HGB 29.9 pg (27.0-31.0); MEAN CORPUSCULAR HGB CONC 34.2 g/dl (33.0-37.0); MEAN PLATELET VOLUME 9.1 fl (9.6-12.3); PLATELET COUNT AUTOMATED 382 10*3/uL (130-400); RED BLOOD COUNT 5.39 10*6/uL (4.10-5.10); RED CELL DISTRI WIDTH 12.4 % (0-14.5); WHITE BLOOD COUNT 10.7 10*3/uL (4.8-10.8)
[2020-01-08 07:00] LABS: BUN 12 mg/dl (7-24); CHLORIDE 104 mmol/L (98-107); CREATININE 0.79 mg/dL (0.55-1.02); SGOT/AST 16 IU/L (3-35); SGPT/ALT 16 U/L (12-78); SODIUM 136 mmol/L (136-145); TOTAL PROTEIN 7.8 gm/dL (6.4-8.2)
[2020-01-08 07:11] LABS: ALKALINE PHOSPHATASE 95 U/L (45-117); CHOLESTEROL 214 mg/dL (<200); HDL CHOLESTEROL 49 mg/dl (40-60); LDL CHOLESTEROL 134 mg/dL (9-159); TRIGLYCERIDES 154 mg/dl (<150); VLDL CHOLESTEROL 31 mg/dL (6-40)
--- NOTE | 2020-01-08 07:35 | NUR ---
SPOKE WITH DR MILLER RE: PT POTASSIUM LEVEL TODAY, NO FURTHER ORDERS AT THIS TIME.
[2020-01-08 07:37] LABS: BASOPHILS 1 % (0-1); PLATELET SUFFICIENCY NORMAL (NORMAL); TOTAL CELLS COUNTED 100 #CELLS
[2020-01-08 07:43] VITALS: BP 116/83
--- NOTE | 2020-01-08 07:59 | NUR ---
PHYSICAL THERAPY Pt at [facility] medical floor 01/02-01/06 for facial cellulitis and sepsis then admitted to [facility] for depression. Please consult PT if pt has a decline in functional status below baseline, thank you Ashley Gallegos PT
--- NOTE | 2020-01-08 09:00 | NUR ---
Treatment Plan meeting was held this a.m. with Dr. Méndez via telephone, HOLDEN Sánchez RN, BEVERAGE DISTILLER-S and Firer Watertender in attendance. Plan for discharge Next Week. Pt. will return home at discharge.
--- NOTE | 2020-01-08 09:25 | NUR ---
ON UNIT TO SEE PT AT THIS TIME. MADE AWARE PT HAS BEEN VOMITING INTERMITTENTLY SINCE AFTER BREAKFAST. PT UNABLE TO KEEP PO PHENERGAN DOWN. REQUESTING IV ANTI-NAUSEA MEDICATION. VERBAL ORDER RECIEVED FOR ZOFRAN 4MG IV X1 DOSE NOW.
--- NOTE | 2020-01-08 10:48 | NUR ---
Nutritional Support Services Note: Pt has an ulcer, continues to have nausea and vomiting. Diet changed to acute bland. Will monitor for tolerance to diet. Advance diet as tolerated. Continue with Ensure as ordered. Ariadne Rodriguez Rdn Ld
--- NOTE | 2020-01-08 11:20 | NUR ---
INITIAL REVIEW FAXED TO [facility].
--- NOTE | 2020-01-08 13:39 | NUR ---
SPOKE WITH DR MILLER RE: PT REQUESTING ADDITIONAL MEDS FOR NAUSEA. ADVISED THAT PT PREVIOUSLY RECEIVED IV ZOFRAN AT 953 THIS MORNING, PER DR MILLER GO AHEAD AND GIVE ANOTHER DOSE. CONVERSATION WITNESSED BY 2ND RN KATY.
--- NOTE | 2020-01-08 16:15 | NUR ---
P: PT REFUSED LUNCH, STATING "I DON'T FEEL GOOD." PT REPORTS FEELING ANXIOUS. PT REFUSED 1300 MEDS STATING "I JUST DON'T THINK I CAN KEEP THEM DOWN. I: PROVIDE EMOTIONAL SUPPORT AND 1:1 FOR PT TO VOICE FEELINGS, ENCOURAGE PO INTAKE, ENCOURAGE MED COMPLIANCE AND PROVIDE MED EDUCATION R: PT ALERT TO PERSON, PLACE, TIME AND SITUATION. PT MED COMPLIANT THIS MORNING WITH PO MEDS. PT INITIALLY REFUSED 1300 MEDS THEN ASKED FOR SOMETHING FOR ANXIETY, THIS NURSE ADVISED THAT SHE NEEDED TO TAKE HER [address] ORDERED FOR MEDICATIONS, PT THEN AGREED TO TAKE PERIACTIN. PT DID CONTINUE TO REFUSE OTHER PO MEDS. PT CONTINUED TO REFUSE LUNCH WITH ENCOURAGEMENT, EVEN OFFERED BROTH, PT STATED "I JUST DON'T THINK I CAN KEEP IT DOWN." NO HALLUCINATIONS OR DELUSIONS NOTED. PT DENIES ANY SUICIDAL THOUGHTS, VERBALLY CONTRACTS FOR SAFETY IF SUCH THOUGHTS ARISE. P: MONITOR PT BEHAVIORS ON Q15 MIN SAFETY CHECKS, ENCOURAGE MED COMPLIANCE AND PROVIDE MED EDUCATION, PROVIDE EMOTIONAL SUPPORT AND 1:1 FOR PT TO VOICE FEELINGS, ENCOURAGE PO INTAKE
[2020-01-08 20:00] VITALS: BP 132/76
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
--- NOTE | 2020-01-09 06:24 | NUR ---
PATIENT SLEPT 7 HOURS OF INTERRUPTED SLEEP THROUGHOUT SHIFT. Q 15 MINUTE CHECKS MAINTAINED. 24 HR chart check completed.
[2020-01-09 07:54] VITALS: BP 120/82
--- NOTE | 2020-01-09 09:10 | NUR ---
DR CASILLAS ON UNIT TO ASSESS PT, UPDATE PROVIDED, RE" PT REFUSING CARAFATE, PER GO AHEAD AND HOLD IT TODAY AND RESUME TOMORROW. WE WILL SEE HOW SHE IS DOING.
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
[2020-01-09 20:00] VITALS: BP 136/82
--- NOTE | 2020-01-10 00:48 | NUR ---
P-DEPRESSED MOOD, PREOCCUPIED I-REDIRECTION WITH 1:1 THERAPEUTIC INTERVENTIONS AND PRESENT REALITY. EDUCATE AND ENCOURAGE MEDICATION COMPLIANCE R-PATIENT MEDICATION COMPLIANT WITH MOST MEDICATIONS. PATIENT REFUSED ZYPREXA AND CARAFATE ON HOLD AT THIS TIME. PATIENT PREOCCUPIED WITH MEDICATIONS AND STATING TO THIS NURSE "I WONDER IF THEY WILL CONSIDER GIVING ME KLONOPIN AGAIN". PATIENT MENTIONED TAKING KLONOPIN SEVERAL TIMES WHILE SPEAKING TO THIS NURSE AT . LEFT AC ACCUCATH FLUSHED WITHOUT DIFFICULTY AND WITH NO REDNESS, EDEMA, PAIN AT SITE. PATIENT DISCUSSED WITH THIS NURSE MULTIPLE EVENTS IN PATIENT'S LIFE. PATIENT WITH DEPRESSED MOOD BUT STATES "I FEEL BETTER THAN WHAT I DID YESTERDAY". PATIENT WITH NO HALLUCINATIONS OR DELUSIONS. PATIENT WITH NO HOMICIDAL OR SUICIDAL IDEATIONS. P-CONTINUE TO ENCOURAGE MEDICATION COMPLIANCE, CONTINUE TO PRESENT REALITY, ENCOURAGE GROUP THERAPY WHILE AWAKE
--- NOTE | 2020-01-10 06:51 | NUR ---
PATIENT SLEPT 1 HOUR INTERRUPTED SLEEP THROUGHOUT SHIFT. Q 15 MINUTE CHECKS MAINTAINED. 24 HR chart check completed.
[2020-01-10 07:39] VITALS: BP 118/85
--- NOTE | 2020-01-10 09:05 | NUR ---
DR CASILLAS ON UNIT TO ASSESS PATIENT, UPDATE PROVIDED.
--- NOTE | 2020-01-10 15:55 | NUR ---
PT C/O PAIN TO IV SITE. IV REMOVED AT THIS TIME. PT HAS NOT RECEIVED IV MEDICATIONS FOR OVER 24 HOURS.
--- NOTE | 2020-01-10 17:22 | NUR ---
PT A&O X4. PT STATED SHE IS NOT SLEEPING WELL DO TO THINKING ABOUT HER SITUATION. PT STATED SHE IS EATING BETTER NOW AND IS ABLE TO KEEP IT DOWN. PT IS DEPRESSED, SAD, AMD TEARFUL. PT STATED SHE IS WORRIED ABOUT LOSING HER APARTMENT DUE TO NOT BEING THERE TO SIGN A LEASE ON SATURDAY. ASSURED PT THAT THE TURKISH RUBBER WILL BE ABLE TO ASSIST HER.
[2020-01-10 20:00] VITALS: BP 154/80
--- NOTE | 2020-01-10 21:10 | NUR ---
24 HR chart check completed.
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
--- NOTE | 2020-01-11 05:58 | NUR ---
PT SLEPT 2 HOURS 45 MINUTES. RESTING IN BED AT THIS TIME. Q 15 MIN CHECKS MAINTAINED.
[2020-01-11 07:32] VITALS: BP 130/74
--- NOTE | 2020-01-11 09:00 | NUR ---
Treatment Plan meeting was held this a.m. with Dr. Méndez, HOLDEN Sánchez, KASIA, LEARNING OFFICER-S and Traverse Rod Assembler in attendance. plan for discharge Saturday. Pt. will return Home at discharge.
--- NOTE | 2020-01-11 11:40 | NUR ---
DR. GLASS ON UNIT TO ASSESS PATIENT.
--- NOTE | 2020-01-11 16:54 | NUR ---
NO ADVERSE MOODS OR BEHAVIORS NOTED. BEHAVIORS MONITORED WITH Q15 MINUTE SAFETY CHECKS. MEDICATION COMPLIANT. MEDICATION EDUCATION PROVIDED. CONTINUE TO MONITOR BEHAVIORS WITH Q15 MINUTE SAFETY CHECKS AND ENCOURAGE MEDICATION COMPLIANCE. SEE [facility] FLOWS[facility]ET FOR SPECIFIC MONITORING.
[2020-01-11 19:41] VITALS: BP 128/74
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
--- NOTE | 2020-01-12 05:53 | NUR ---
24 HR chart check completed.
--- NOTE | 2020-01-12 06:42 | NUR ---
PT SLEPT 6.5 HOURS WITH INTERMITTENT AWAKENINGS.
[2020-01-12 08:00] VITALS: BP 123/81
--- NOTE | 2020-01-12 09:00 | NUR ---
Treatment Plan meeting was held this a.m. with Dr. Méndez via Telephone, OCCASIONAL CAREGIVER Princess, RN, AT, FITNESS FLOOR ATTENDANT-S and Insurance Manager in attendance. Plan for discharge today. Pt. will return home at discharge. Follow up appointments scheduled by Insurance Manager and reviewed with Pt. Follow up with Dr. Goodman via telehealth Appointment 01/14/20 2:15 p.m. at [facility]. Medication Appointment with Meme In Person Appointment 01/19/2020 @2:30 p.m. Primary Care Follow up with [facility] 01/14/20 1:30 p.m. Pt. to call Dr. Johnson to Schedule Dental Follow up. Provided with Office Contact information and Phone Number. Left Message with Dr. Johnson Office to notify of Discharge. Office is closed today. Pt. will call for a Ride from her Friend.
[2020-01-12] MEDS ORDERED: AMITRIPTYLINE50 MG PO (09:47)
[2020-01-12] MEDS ORDERED: CYPROHEPTADINE H4 M1 PO (10:00)
--- NOTE | 2020-01-12 11:04 | NUR ---
DR PATTERSON ON UNIT TO ASSESS PATIENT, UPDATE PROVIDED.
--- NOTE | 2020-01-12 13:15 | NUR ---
DR MILLER NOTIFIED PT WILL BE LEAVING IN THIRTY MINUTES. REQUESTED THAT MEDICATIONS BE FILLED.
--- NOTE | 2020-01-12 13:33 | NUR ---
DR MILLER CALLED AGAIN TO CONTINUE MEDICATIONS.
== END 2020-01-12 13:59 | disposition home or self-care (01) | DRG 751 ==
LOC: 3N 11:44
PROVIDERS: ADMIT Psychiatry & Neurology Psychiatry; ATTEND Psychiatry & Neurology Psychiatry
DX: F33.41 Major depressive disorder, recurrent, in partial remission (principal); R45.851 Suicidal ideations; K25.3 Acute gastric ulcer without hemorrhage or perforation; L03.211 Cellulitis of face; C34.91 Malignant neoplasm of unspecified part of right bronchus or lung; K58.9 Irritable bowel syndrome, unspecified; E53.8 Deficiency of other specified B group vitamins; E55.9 Vitamin D deficiency, unspecified; I10 Essential (primary) hypertension; J44.9 Chronic obstructive pulmonary disease, unspecified; K04.7 Periapical abscess without sinus; F34.1 Dysthymic disorder; F41.9 Anxiety disorder, unspecified; F12.10 Cannabis abuse, uncomplicated; F17.210 Nicotine dependence, cigarettes, uncomplicated; I73.9 Peripheral vascular disease, unspecified; E05.90 Thyrotoxicosis, unspecified without thyrotoxic crisis or storm; M19.90 Unspecified osteoarthritis, unspecified site; Z88.1 Allergy status to other antibiotic agents; Z88.2 Allergy status to sulfonamides; Z88.8 Allergy status to other drugs, medicaments and biological substances; Z71.6 Tobacco abuse counseling; I25.2 Old myocardial infarction; Z79.899 Other long term (current) drug therapy; Z20.828 Contact with and (suspected) exposure to other viral communicable diseases

== ENCOUNTER 2020-01-18 18:10 | Emergency (ER) | payer OTHER ==
[~2020-01-18] VITALS: Ht 149.8 cm; Wt 44.5 kg
[~2020-01-18 18:10] MED LIST changes: +AMITRIPTYLINE50 MG PO; +CYPROHEPTADINE H4 M1 PO; +ROZEREM8 MG PO
[2020-01-18 19:08] LABS: BASO % 0.4 % (0.0-1.0); EOS # 0.1 10*3/uL (0.0-0.4); EOS % 1.4 % (1.0-4.0); LYMPH # 1.9 10*3/uL (1.3-4.4); MEAN CELL VOLUME 93.3 fl (81.0-99.0); MEAN CORPUSCULAR HGB 29.5 pg (27.0-31.0); MEAN CORPUSCULAR HGB CONC 31.6 g/dl (33.0-37.0); MEAN PLATELET VOLUME 8.5 fl (9.6-12.3); MONO # 0.5 10*3/uL (0.1-1.0); MONO % 5.8 % (3.0-9.0); NEUT # 5.5 10*3/uL (2.3-7.9); NEUT % 67.9 % (47.0-73.0); PLATELET COUNT AUTOMATED 334 10*3/uL (130-400); RED BLOOD COUNT 4.61 10*6/uL (4.10-5.10); RED CELL DISTRI WIDTH 13.4 % (0-14.5); WHITE BLOOD COUNT 8.1 10*3/uL (4.8-10.8)
[2020-01-18 19:21] LABS: ALBUMIN 3.8 gm/dl (3.1-4.5); ALKALINE PHOSPHATASE 104 U/L (45-117); BUN 10 mg/dl (7-24); CHLORIDE 107 mmol/L (98-107); CREATININE 0.65 mg/dL (0.55-1.02); POTASSIUM 3.9 mmol/L (3.5-5.1); SGOT/AST 12 IU/L (3-35); SGPT/ALT 17 U/L (12-78); SODIUM 140 mmol/L (136-145); TOTAL PROTEIN 7.9 gm/dL (6.4-8.2)
[2020-01-18] MEDS ORDERED: CLEOCIN HCL150 MG PO (19:37)
== END 2020-01-18 19:42 | disposition home or self-care (01) ==
LOC: ED 18:10
PROVIDERS: Nurse Practitioner Family
DX: K04.7 Periapical abscess without sinus (principal); Z88.1 Allergy status to other antibiotic agents; Z88.2 Allergy status to sulfonamides; Z88.8 Allergy status to other drugs, medicaments and biological substances; Z79.899 Other long term (current) drug therapy; Z87.891 Personal history of nicotine dependence

== ENCOUNTER 2020-03-10 15:21 | Emergency (ER) | payer OTHER ==
[~2020-03-10] VITALS: Ht 157.4 cm; Wt 59.0 kg
[~2020-03-10 15:21] MED LIST changes: +CLEOCIN HCL150 MG PO
[2020-03-10 16:09] LABS: BASO % 0.5 % (0.0-1.0); EOS # 0.1 10*3/uL (0.0-0.4); HEMATOCRIT 46.8 % (37.0-47.0); LYMPH # 2.2 10*3/uL (1.3-4.4); LYMPH % 26.3 % (27.0-41.0); MEAN CELL VOLUME 91.8 fl (81.0-99.0); MEAN CORPUSCULAR HGB 30.6 pg (27.0-31.0); MEAN CORPUSCULAR HGB CONC 33.3 g/dl (33.0-37.0); MEAN PLATELET VOLUME 8.8 fl (9.6-12.3); MONO # 0.4 10*3/uL (0.1-1.0); MONO % 5.1 % (3.0-9.0); NEUT # 5.6 10*3/uL (2.3-7.9); NEUT % 66.7 % (47.0-73.0); PLATELET COUNT AUTOMATED 317 10*3/uL (130-400); RED CELL DISTRI WIDTH 12.8 % (0-14.5); WHITE BLOOD COUNT 8.4 10*3/uL (4.8-10.8)
[2020-03-10 16:25] LABS: ALBUMIN 4.1 gm/dl (3.1-4.5); ALKALINE PHOSPHATASE 116 U/L (45-117); BUN 8 mg/dl (7-24); CHLORIDE 110 mmol/L (98-107); CREATININE 0.56 mg/dL (0.55-1.02); LIPASE 262 U/L (73-393); SGOT/AST 18 IU/L (3-35); SGPT/ALT 23 U/L (12-78); SODIUM 141 mmol/L (136-145)
[2020-03-10 16:28] LABS: TROPONIN I < 0.015 ng/ml (<0.045)
[2020-03-10 16:53] LABS: ACT PARTIAL THROMBO TIME 26.6 SECONDS (20.0-32.1); INTERNATIONAL NORM RATIO 0.9 (2.0-3.5)
== END 2020-03-10 20:39 | disposition home or self-care (01) ==
LOC: ED 15:21
PROVIDERS: Emergency Medicine
DX: R07.89 Other chest pain (principal); F41.9 Anxiety disorder, unspecified; Z88.2 Allergy status to sulfonamides; Z79.899 Other long term (current) drug therapy; Z88.8 Allergy status to other drugs, medicaments and biological substances

== ENCOUNTER 2020-03-20 13:48 | Emergency (ER) | payer OTHER ==
[~2020-03-20] VITALS: Ht 152.4 cm; Wt 43.1 kg
[2020-03-20 14:32] LABS: BASO % 0.3 % (0.0-1.0); EOS # 0.1 10*3/uL (0.0-0.4); EOS % 1.5 % (1.0-4.0); HEMATOCRIT 47.4 % (37.0-47.0); LYMPH # 2.2 10*3/uL (1.3-4.4); LYMPH % 23.5 % (27.0-41.0); MEAN CELL VOLUME 92.8 fl (81.0-99.0); MEAN CORPUSCULAR HGB 30.5 pg (27.0-31.0); MEAN CORPUSCULAR HGB CONC 32.9 g/dl (33.0-37.0); MEAN PLATELET VOLUME 8.6 fl (9.6-12.3); MONO # 0.5 10*3/uL (0.1-1.0); MONO % 5.3 % (3.0-9.0); NEUT # 6.5 10*3/uL (2.3-7.9); NEUT % 69.2 % (47.0-73.0); PLATELET COUNT AUTOMATED 289 10*3/uL (130-400); RED BLOOD COUNT 5.11 10*6/uL (4.10-5.10); RED CELL DISTRI WIDTH 13.1 % (0-14.5); WHITE BLOOD COUNT 9.3 10*3/uL (4.8-10.8)
[2020-03-20 14:49] LABS: ACT PARTIAL THROMBO TIME 26.2 SECONDS (20.0-32.1)
[2020-03-20 14:50] LABS: ALBUMIN 4.1 gm/dl (3.1-4.5); ALKALINE PHOSPHATASE 108 U/L (45-117); BUN 7 mg/dl (7-24); CHLORIDE 111 mmol/L (98-107); LIPASE 249 U/L (73-393); POTASSIUM 3.9 mmol/L (3.5-5.1); SGOT/AST 19 IU/L (3-35); SGPT/ALT 23 U/L (12-78); SODIUM 142 mmol/L (136-145); TOTAL PROTEIN 7.7 gm/dL (6.4-8.2)
[2020-03-20 14:52] LABS: TROPONIN I < 0.015 ng/ml (<0.045)
[2020-03-20 15:52] LABS: BILIRUBIN Negative (Negative); BLOOD Negative (Negative); CLARITY Clear (Clear); COLOR Yellow (Yellow); GLUCOSE Negative (Negative); KETONE Negative (Negative); LEUKO ESTERASE Negative (Negative); NITRITE Negative (Negative); UROBILINOGEN 0.2 E.U./dl (0.0-1.0)
[2020-03-20 16:40] LABS: EPITHELIAL CELLS 0-2; WBC 0-2 wbc/hpf (0-5)
== END 2020-03-20 16:53 | disposition home or self-care (01) ==
LOC: ED 13:48
PROVIDERS: Nurse Practitioner Family
DX: F41.9 Anxiety disorder, unspecified (principal); R42 Dizziness and giddiness; R00.0 Tachycardia, unspecified; H53.8 Other visual disturbances; R07.89 Other chest pain; R06.02 Shortness of breath; I25.2 Old myocardial infarction; J44.9 Chronic obstructive pulmonary disease, unspecified; G43.909 Migraine, unspecified, not intractable, without status migrainosus; M19.90 Unspecified osteoarthritis, unspecified site; F17.200 Nicotine dependence, unspecified, uncomplicated; Z86.718 Personal history of other venous thrombosis and embolism; Z86.711 Personal history of pulmonary embolism; Z88.2 Allergy status to sulfonamides; Z88.8 Allergy status to other drugs, medicaments and biological substances; Z91.011 Allergy to milk products; Z79.899 Other long term (current) drug therapy; Z90.711 Acquired absence of uterus with remaining cervical stump; Z90.89 Acquired absence of other organs

== ENCOUNTER → 2020-05-19 | Outpatient (CLI) | payer OTHER ==
[~2020-05-19] MED LIST changes: +HYDROCODONE-AC1 EAC1 PO; +MELATONIN5 M1 SL; +NAPROXEN250 MG PO; +ROBAXIN-750750 MG PO; +SIMVASTATIN20 MG PO; +SYMB160 INH; +TYLENOL325 M3 PO; +VISTARIL50 MG PO
== END | disposition home or self-care (01) ==
LOC: COVID19 14:34
PROVIDERS: ATTEND Dentist General Practice
DX: Z01.818 Encounter for other preprocedural examination (principal); Z20.822 Contact with and (suspected) exposure to COVID-19

== ENCOUNTER → 2020-05-24 | Day surgery (SDC) | payer OTHER ==
[2020-05-19 13:49] VITALS: BP 139/86
[~2020-05-24] VITALS: Ht 152.4 cm; Wt 43.1 kg
[2020-05-24 06:30] VITALS: BP 140/82
[2020-05-24 08:24] VITALS: BP 180/103
[2020-05-24 08:40] VITALS: BP 168/90
[2020-05-24 08:54] VITALS: BP 162/62
[2020-05-24 09:03] VITALS: BP 167/86
[2020-05-24 09:25] VITALS: BP 153/88
== END ==
LOC: SDC 05-19 13:15
PROVIDERS: ATTEND Dentist General Practice
DX: K02.9 Dental caries, unspecified (principal); F41.9 Anxiety disorder, unspecified; F43.10 Post-traumatic stress disorder, unspecified; K21.9 Gastro-esophageal reflux disease without esophagitis; F32.9 Major depressive disorder, single episode, unspecified; G43.909 Migraine, unspecified, not intractable, without status migrainosus; G25.81 Restless legs syndrome; J43.9 Emphysema, unspecified; K58.9 Irritable bowel syndrome, unspecified; Z85.118 Personal history of other malignant neoplasm of bronchus and lung; Z85.41 Personal history of malignant neoplasm of cervix uteri; Z87.891 Personal history of nicotine dependence

== ENCOUNTER → 2020-06-18 | Outpatient (CLI) | payer OTHER ==
[2020-06-18 10:42] LABS: ALBUMIN 4.2 gm/dl (3.1-4.5); ALKALINE PHOSPHATASE 130 U/L (45-117); BUN 10 mg/dl (7-24); CHLORIDE 112 mmol/L (98-107); CREATININE 0.66 mg/dL (0.55-1.02); POTASSIUM 4.1 mmol/L (3.5-5.1); SGOT/AST 25 IU/L (3-35); SGPT/ALT 36 U/L (12-78); SODIUM 141 mmol/L (136-145); TOTAL PROTEIN 8.4 gm/dL (6.4-8.2)
== END | disposition home or self-care (01) ==
LOC: LAB 09:43
PROVIDERS: ATTEND Family Medicine
DX: G62.9 Polyneuropathy, unspecified (principal)

== ENCOUNTER → 2020-06-27 | Outpatient (CLI) | payer OTHER | END | disposition home or self-care (01) | LOC: CT 11:00 | PROVIDERS: ATTEND Internal Medicine Critical Care Medicine | DX: R91.1 Solitary pulmonary nodule (principal); J94.8 Other specified pleural conditions; Z85.118 Personal history of other malignant neoplasm of bronchus and lung ==

== ENCOUNTER 2020-07-07 23:42 | Emergency (ER) | payer OTHER ==
[~2020-07-07 23:42] MED LIST changes: -NAPROXEN250 MG PO; -ROBAXIN-750750 MG PO
[2020-07-08 01:24] LABS: BASO % 0.4 % (0.0-1.0); EOS # 0.2 10*3/uL (0.0-0.4); EOS % 2.6 % (1.0-4.0); HEMATOCRIT 42.2 % (37.0-47.0); LYMPH # 2.8 10*3/uL (1.3-4.4); LYMPH % 33.6 % (27.0-41.0); MEAN CELL VOLUME 93.6 fl (81.0-99.0); MEAN CORPUSCULAR HGB 30.8 pg (27.0-31.0); MEAN CORPUSCULAR HGB CONC 32.9 g/dl (33.0-37.0); MEAN PLATELET VOLUME 8.6 fl (9.6-12.3); MONO # 0.6 10*3/uL (0.1-1.0); NEUT # 4.7 10*3/uL (2.3-7.9); NEUT % 56.2 % (47.0-73.0); PLATELET COUNT AUTOMATED 275 10*3/uL (130-400); RED BLOOD COUNT 4.51 10*6/uL (4.10-5.10); RED CELL DISTRI WIDTH 12.5 % (0-14.5); WHITE BLOOD COUNT 8.3 10*3/uL (4.8-10.8)
[2020-07-08 01:41] LABS: ALBUMIN 3.8 gm/dl (3.1-4.5); ALKALINE PHOSPHATASE 112 U/L (45-117); BUN 7 mg/dl (7-24); CHLORIDE 111 mmol/L (98-107); CREATININE 0.67 mg/dL (0.55-1.02); POTASSIUM 3.7 mmol/L (3.5-5.1); SGOT/AST 14 IU/L (3-35); SGPT/ALT 21 U/L (12-78); SODIUM 142 mmol/L (136-145); TOTAL PROTEIN 7.1 gm/dL (6.4-8.2)
== END 2020-07-08 02:50 | disposition home or self-care (01) ==
LOC: ED 23:42
PROVIDERS: Emergency Medicine
DX: I10 Essential (primary) hypertension (principal); J44.9 Chronic obstructive pulmonary disease, unspecified; F32.9 Major depressive disorder, single episode, unspecified; K21.9 Gastro-esophageal reflux disease without esophagitis; E03.9 Hypothyroidism, unspecified; I25.2 Old myocardial infarction; M81.0 Age-related osteoporosis without current pathological fracture; F17.200 Nicotine dependence, unspecified, uncomplicated; Z88.8 Allergy status to other drugs, medicaments and biological substances; Z88.2 Allergy status to sulfonamides; Z91.011 Allergy to milk products; Z79.899 Other long term (current) drug therapy; Z79.2 Long term (current) use of antibiotics; Z98.890 Other specified postprocedural states; Z90.711 Acquired absence of uterus with remaining cervical stump

== ENCOUNTER 2020-07-14 18:06 | Emergency (ER) | payer OTHER ==
[2020-07-14] MEDS ORDERED: ROBAXIN-750750 MG PO (19:57)
[2020-07-14] MEDS ORDERED: NAPROXEN250 MG PO (19:57)
== END 2020-07-14 20:15 | disposition home or self-care (01) ==
LOC: ED 18:06
DX: S29.011A Strain of muscle and tendon of front wall of thorax, initial encounter (principal); J44.9 Chronic obstructive pulmonary disease, unspecified; G43.909 Migraine, unspecified, not intractable, without status migrainosus; M19.90 Unspecified osteoarthritis, unspecified site; F17.200 Nicotine dependence, unspecified, uncomplicated; Z88.2 Allergy status to sulfonamides; Z88.8 Allergy status to other drugs, medicaments and biological substances; Z91.011 Allergy to milk products; Z79.899 Other long term (current) drug therapy; Z98.890 Other specified postprocedural states; Z90.711 Acquired absence of uterus with remaining cervical stump; X58.XXXA Exposure to other specified factors, initial encounter; Y93.89 Activity, other specified; Y92.89 Other specified places as the place of occurrence of the external cause; Y99.8 Other external cause status

== ENCOUNTER → 2020-07-21 | Outpatient (CLI) | payer OTHER ==
[~2020-07-21] MED LIST changes: +NAPROXEN250 MG PO; +ROBAXIN-750750 MG PO
== END | disposition home or self-care (01) ==
LOC: D 14:40
PROVIDERS: ATTEND Family Medicine
DX: E11.9 Type 2 diabetes mellitus without complications (principal)

== ENCOUNTER → 2020-08-29 | Outpatient (CLI) | payer OTHER | END | disposition home or self-care (01) | LOC: US 13:30 | PROVIDERS: ATTEND Family Medicine | DX: E01.0 Iodine-deficiency related diffuse (endemic) goiter (principal) ==

== ENCOUNTER → 2020-10-05 | Outpatient (CLI) | payer OTHER | END | disposition home or self-care (01) | LOC: MAMMO 09-28 11:00 | PROVIDERS: ATTEND Family Medicine | DX: Z12.31 Encounter for screening mammogram for malignant neoplasm of breast (principal) ==

== ENCOUNTER → 2021-04-18 | Outpatient (CLI) | payer OTHER | END | disposition home or self-care (01) | LOC: COVID19 17:14 | PROVIDERS: ATTEND Podiatrist Foot & Ankle Surgery | DX: Z11.52 Encounter for screening for COVID-19 (principal) ==

== ENCOUNTER → 2021-07-05 | Outpatient (CLI) | payer OTHER ==
[~2021-07-05] MED LIST changes: +K-TAB20 MEQ PO; +ZYPREXA15 M1 PO
== END | disposition home or self-care (01) ==
LOC: CARD 00:37
PROVIDERS: ATTEND Internal Medicine Cardiovascular Disease
DX: I44.7 Left bundle-branch block, unspecified (principal); I51.7 Cardiomegaly

== ENCOUNTER 2022-04-26 16:54 | Emergency (ER) | payer OTHER ==
[~2022-04-26] VITALS: Wt 49.9 kg
[2022-04-26] MEDS ORDERED: VIBRA-TAB100 MG PO (17:52)
[2022-04-26] MEDS ORDERED: PREDNISONE10 MG PO (17:52)
== END 2022-04-26 18:27 | disposition home or self-care (01) ==
LOC: ED 16:54
DX: J40 Bronchitis, not specified as acute or chronic (principal); Z88.2 Allergy status to sulfonamides; Z91.011 Allergy to milk products; Z88.8 Allergy status to other drugs, medicaments and biological substances; Z88.1 Allergy status to other antibiotic agents; Z79.899 Other long term (current) drug therapy; Z90.89 Acquired absence of other organs; Z98.890 Other specified postprocedural states; Z87.891 Personal history of nicotine dependence

== ENCOUNTER → 2023-03-07 | Outpatient (CLI) | payer OTHER ==
[~2023-03-07] MED LIST changes: +VIBRA-TAB100 MG PO
== END | disposition home or self-care (01) ==
LOC: RAD 13:59
PROVIDERS: ATTEND Family Medicine
DX: G89.29 Other chronic pain (principal); M25.511 Pain in right shoulder; M25.512 Pain in left shoulder

== ENCOUNTER 2024-03-03 15:43 | Emergency (ER) | payer OTHER ==
[~2024-03-03] VITALS: Ht 152.4 cm; Wt 49.9 kg
[2024-03-03] MEDS ORDERED: SODIUM CHLORIDE 0.9% 1,000 ML IV ONE (16:25)
[2024-03-03] MEDS ORDERED: Ondansetron Hydrochloride 4 MG/2 ML VIAL IV ONE (16:25)
[2024-03-03] MEDS ORDERED: FAMOTIDINE 50 ML IV ONE (16:25)
[2024-03-03 16:47] LABS: BASO % 0.1 % (0.0-1.0); EOS % 0.1 % (1.0-4.0); HEMATOCRIT 42.6 % (37.0-47.0); MEAN CORPUSCULAR HGB 31.4 pg (27.0-31.0); MEAN CORPUSCULAR HGB CONC 35.7 g/dl (33.0-37.0); MEAN PLATELET VOLUME 9.4 fl (9.6-12.3); MONO # 1.1 10*3/uL (0.1-1.0); MONO % 8.8 % (3.0-9.0); NEUT # 10.6 10*3/uL (2.3-7.9); NEUT % 85.6 % (47.0-73.0); PLATELET COUNT AUTOMATED 213 10*3/uL (130-400); RED BLOOD COUNT 4.84 10*6/uL (4.10-5.10); RED CELL DISTRI WIDTH 11.9 % (0-14.5); WHITE BLOOD COUNT 12.3 10*3/uL (4.8-10.8)
[2024-03-03 16:58] LABS: ACT PARTIAL THROMBO TIME 27.1 SECONDS (20.0-32.1)
[2024-03-03 17:04] LABS: ALKALINE PHOSPHATASE 114 U/L (46-116); BUN 19 mg/dl (9-23); CHLORIDE 105 mmol/L (98-107); LDH 358 U/L (120-246); LIPASE 36 U/L (12-53); POTASSIUM 3.5 mmol/L (3.4-5.1); SGPT/ALT 32 U/L (5-49); TOTAL PROTEIN 7.9 gm/dL (6.0-8.0)
[2024-03-03 18:13] LABS: BILIRUBIN Negative (Negative); BLOOD Negative (Negative); CLARITY Clear (Clear); COLOR Yellow (Yellow); GLUCOSE Negative (Negative); KETONE 2+ (Negative); LEUKO ESTERASE Negative (Negative); NITRITE Negative (Negative); PH 5.5 (4.5-8.0)
[2024-03-03 18:28] LABS: EPITHELIAL CELLS 0-2
[2024-03-03] MEDS ORDERED: MAGNESIUM OXIDE 400 MG TAB PO ONE (18:40)
[2024-03-03] MEDS ORDERED: PEPCID20 MG PO (18:41)
[2024-03-03] MEDS ORDERED: Ondansetron4 MG PO (18:41)
== END 2024-03-03 18:58 | disposition home or self-care (01) ==
LOC: ED 15:43
PROVIDERS: Emergency Medicine
DX: K52.9 Noninfective gastroenteritis and colitis, unspecified (principal); E83.42 Hypomagnesemia; J44.9 Chronic obstructive pulmonary disease, unspecified; G43.909 Migraine, unspecified, not intractable, without status migrainosus; I25.2 Old myocardial infarction; M19.90 Unspecified osteoarthritis, unspecified site; F12.10 Cannabis abuse, uncomplicated; F17.200 Nicotine dependence, unspecified, uncomplicated; F13.10 Sedative, hypnotic or anxiolytic abuse, uncomplicated; F11.10 Opioid abuse, uncomplicated; Z88.2 Allergy status to sulfonamides; Z91.011 Allergy to milk products; Z88.8 Allergy status to other drugs, medicaments and biological substances; Z90.710 Acquired absence of both cervix and uterus; Z90.89 Acquired absence of other organs; Z98.890 Other specified postprocedural states

== ENCOUNTER 2024-03-08 19:26 | Inpatient (IN) | payer OTHER ==
[~2024-03-08] VITALS: Ht 152.4 cm; Wt 49.0 kg
[~2024-03-08 19:26] MED LIST changes: +Ondansetron4 MG PO; +PEPCID20 MG PO
[2024-03-08 19:42] VITALS: BP 93/39
[2024-03-08 19:57] VITALS: BP 119/81
[2024-03-08] MEDS ORDERED: SODIUM CHLORIDE 0.9% 1,000 ML IV ONE (20:05)
[2024-03-08 20:24] LABS: HEMATOCRIT 37.7 % (37.0-47.0); MEAN CELL VOLUME 88.9 fl (81.0-99.0); MEAN CORPUSCULAR HGB 31.6 pg (27.0-31.0); MEAN CORPUSCULAR HGB CONC 35.5 g/dl (33.0-37.0); MEAN PLATELET VOLUME 9.1 fl (9.6-12.3); MONO # 0.7 10*3/uL (0.1-1.0); MONO % 13.1 % (3.0-9.0); NEUT # 3.3 10*3/uL (2.3-7.9); PLATELET COUNT AUTOMATED 174 10*3/uL (130-400); RED BLOOD COUNT 4.24 10*6/uL (4.10-5.10); WHITE BLOOD COUNT 5.5 10*3/uL (4.8-10.8)
[2024-03-08 20:39] LABS: ALKALINE PHOSPHATASE 103 U/L (46-116); BUN 10 mg/dl (9-23); CHLORIDE 98 mmol/L (98-107); SGPT/ALT 19 U/L (5-49); TOTAL PROTEIN 6.4 gm/dL (6.0-8.0)
[2024-03-08 20:43] LABS: POTASSIUM 2.4 mmol/L (3.4-5.1)
[2024-03-08] MEDS ORDERED: MAGNESIUM SULFATE 50 ML IV ONE (20:45)
[2024-03-08] MEDS ORDERED: POTASSIUM CHLORIDE 20 MEQ TAB PO ONE (20:45)
[2024-03-08] MEDS ORDERED: POTASSIUM CHLORIDE IN WATER 100 ML IV SCH (21:00)
[2024-03-08] MEDS ORDERED: CLONIDINE HCL0.1 MG PO (22:23)
[2024-03-08] MEDS ORDERED: METOPROLOL SUC100 M1 PO (22:27)
[2024-03-08] MEDS ORDERED: TRAZODONE100 MG PO (22:28)
[2024-03-08] MEDS ORDERED: Phenergan25 MG PO (22:29)
[2024-03-08] MEDS ORDERED: DIAZEPAM2 MG PO (22:29)
[2024-03-08] MEDS ORDERED: IMDUR SA30 MG PO (22:30)
[2024-03-08] MEDS ORDERED: VAZALORE81 MG PO (22:33)
[2024-03-08] MEDS ORDERED: FIBER THERAPY PO (22:34)
[2024-03-08] MEDS ORDERED: VENT7GM INH (22:36)
[2024-03-08] MEDS ORDERED: OXYCODONE HCL (IR) 5 MG TAB PO PRN (23:10)
[2024-03-08] MEDS ORDERED: Scopolamine 1 PATCH PATCH T PRN (23:10)
[2024-03-08] MEDS ORDERED: SODIUM CHLORIDE 0.9% 500 ML IV ONE (23:10)
[2024-03-08] MEDS ORDERED: Clopidogrel Hydrogen Sulfate 75 MG TAB PO SCH (23:15)
[2024-03-08] MEDS ORDERED: CALCIUM (TUMS) 500MG PO SCH (23:20)
[2024-03-09] VITALS (7 sets, daily range): BP systolic 92–130; BP diastolic 64–92
[2024-03-09 06:15] LABS: BASO % 0.2 % (0.0-1.0); HEMATOCRIT 34.1 % (37.0-47.0); MEAN CORPUSCULAR HGB 31.1 pg (27.0-31.0); MEAN CORPUSCULAR HGB CONC 34.9 g/dl (33.0-37.0); MEAN PLATELET VOLUME 9.4 fl (9.6-12.3); MONO # 0.7 10*3/uL (0.1-1.0); MONO % 16.3 % (3.0-9.0); NEUT # 2.2 10*3/uL (2.3-7.9); NEUT % 51.6 % (47.0-73.0); PLATELET COUNT AUTOMATED 152 10*3/uL (130-400); RED BLOOD COUNT 3.83 10*6/uL (4.10-5.10); RED CELL DISTRI WIDTH 12.2 % (0-14.5); WHITE BLOOD COUNT 4.3 10*3/uL (4.8-10.8)
[2024-03-09 06:37] LABS: BUN 8 mg/dl (9-23); CHLORIDE 101 mmol/L (98-107); CHOLESTEROL 211 mg/dL (<200); FREE T4 1.85 ng/dl (0.89-1.76); LDL CHOLESTEROL 146 mg/dL (9-159); POTASSIUM 3.3 mmol/L (3.4-5.1); TRIGLYCERIDES 146 mg/dl (<150)
[2024-03-09] MEDS ORDERED: MAGNESIUM SULFATE 50 ML IV ONE (07:20)
[2024-03-09 07:23] LABS: VITAMIN D, 25-HYDROXY 23.2 ng/mL (30-100)
[2024-03-09] MEDS ORDERED: LIPITOR40 MG PO (08:13)
[2024-03-09] MEDS ORDERED: OXYBUTYNIN5 MG PO (08:16)
[2024-03-09] MEDS ORDERED: DRONABINOL10 MG PO (08:20)
[2024-03-09] MEDS ORDERED: Dicyclomine Hydrochloride 10 MG CAP PO PRN (08:25)
[2024-03-09] MEDS ORDERED: Promethazine Hydrochloride 25 MG TAB PO PRN (08:40)
[2024-03-09] MEDS ORDERED: IOHEXOL 350 MG/ML 100 ML VIAL IV ONE (09:20)
[2024-03-09] MEDS ORDERED: SODIUM CHLORIDE 0.9% 100 ML BAG IV ONE (09:20)
[2024-03-09] MEDS ORDERED: PSYLLIUM 1 PCK PACKET PO SCH (10:00)
[2024-03-09] MEDS ORDERED: ASPIRIN ENTERIC COATED 81 MG TAB PO SCH (10:00)
[2024-03-09] MEDS ORDERED: Enoxaparin Sodium 40 MG/0.4 ML SYR SC SCH (10:00)
[2024-03-09] MEDS ORDERED: METOPROLOL SUCCINATE XR 100 MG TAB PO SCH (10:00)
[2024-03-09] MEDS ORDERED: ERGOCALCIFEROL 50,000 IU CAP (1.25 MG) PO SCH (10:00)
[2024-03-09] MEDS ORDERED: ATORVASTATIN CALCIUM 40 MG TABLET PO SCH (10:00)
[2024-03-09] MEDS ORDERED: cloNIDine Hydrochloride 0.1 MG TAB PO SCH (10:00)
[2024-03-09] MEDS ORDERED: ISOSORBIDE MONONITRATE 30 MG TAB PO SCH (10:00)
[2024-03-09] MEDS ORDERED: POTASSIUM CHLORIDE 20 MEQ TAB PO ONE (12:00)
[2024-03-09] MEDS ORDERED: Loperamide Hydrochloride 2 MG CAP PO PRN (14:45)
[2024-03-09] MEDS ORDERED: HEPARIN SODIUM 250 ML IV SCH (18:00)
[2024-03-09] MEDS ORDERED: OMEPRAZOLE 20 MG CAP PO SCH (22:00)
[2024-03-09] MEDS ORDERED: OLANZAPINE 10 MG TAB PO SCH (22:00)
[2024-03-10] VITALS: BP 115/76
[2024-03-10 02:07] LABS: HEMATOCRIT 30.9 % (37.0-47.0); MEAN CELL VOLUME 91.2 fl (81.0-99.0); MEAN CORPUSCULAR HGB 31.3 pg (27.0-31.0); MEAN CORPUSCULAR HGB CONC 34.3 g/dl (33.0-37.0); MEAN PLATELET VOLUME 9.2 fl (9.6-12.3); MONO # 0.5 10*3/uL (0.1-1.0); MONO % 18.1 % (3.0-9.0); NEUT # 1.3 10*3/uL (2.3-7.9); NEUT % 46.4 % (47.0-73.0); PLATELET COUNT AUTOMATED 147 10*3/uL (130-400); RED BLOOD COUNT 3.39 10*6/uL (4.10-5.10); RED CELL DISTRI WIDTH 12.4 % (0-14.5); WHITE BLOOD COUNT 2.7 10*3/uL (4.8-10.8)
[2024-03-10 02:26] LABS: CHLORIDE 104 mmol/L (98-107)
[2024-03-10 02:27] LABS: BUN < 5 mg/dl (9-23)
[2024-03-10] MEDS ORDERED: OMEPRAZOLE 20 MG CAP PO SCH (06:00)
[2024-03-10 08:00] VITALS: BP 108/75
[2024-03-10] MEDS ORDERED: SODIUM CHLORIDE 0.9% 1,000 ML IV SCH (08:00)
[2024-03-10] MEDS ORDERED: Ondansetron Hydrochloride 4 MG TAB PO PRN (08:35)
[2024-03-10] MEDS ORDERED: Ceftriaxone Sodium 1 GM in SYRINGE INFUSION 10 ML IV SCH (09:00)
[2024-03-10 11:50] LABS: BILIRUBIN Negative (Negative); BLOOD Negative (Negative); CLARITY Clear (Clear); COLOR Yellow (Yellow); GLUCOSE Negative (Negative); KETONE Negative (Negative); LEUKO ESTERASE Negative (Negative); NITRITE Negative (Negative); PH 6.5 (4.5-8.0)
[2024-03-10 12:00] VITALS: BP 116/80
[2024-03-10 13:40] LABS: BACTERIA 2+
[2024-03-10 16:00] VITALS: BP 105/59
[2024-03-10] MEDS ORDERED: DIAZEPAM 2 MG TAB PO PRN (19:35)
[2024-03-10 20:00] VITALS: BP 100/68
[2024-03-10 21:00] VITALS: BP 114/85
[2024-03-10] MEDS ORDERED: cloNIDine Hydrochloride 0.1 MG TAB PO SCH (22:00)
[2024-03-11] VITALS: BP 110/70
[2024-03-11 04:13] LABS: MEAN CELL VOLUME 92.3 fl (81.0-99.0); MEAN CORPUSCULAR HGB 31.3 pg (27.0-31.0); MEAN CORPUSCULAR HGB CONC 33.9 g/dl (33.0-37.0); PLATELET COUNT AUTOMATED 153 10*3/uL (130-400); RED BLOOD COUNT 3.36 10*6/uL (4.10-5.10); RED CELL DISTRI WIDTH 12.4 % (0-14.5)
[2024-03-11 04:16] LABS: MANUAL DIFF REFLEX YES
[2024-03-11 04:33] LABS: CHLORIDE 110 mmol/L (98-107); POTASSIUM 4.1 mmol/L (3.4-5.1)
[2024-03-11 04:42] LABS: BUN < 5 mg/dl (9-23)
[2024-03-11 04:48] LABS: MICROCYTOSIS SLIGHT; OVALOCYTES FEW; PLATELET SUFFICIENCY NORMAL (NORMAL); TOTAL CELLS COUNTED 100 #CELLS
[2024-03-11 08:00] VITALS: BP 113/71; BP 157/101
[2024-03-11] MEDS ORDERED: RIVAROXABAN 15 MG TAB PO SCH ×2 (11:06→18:00)
[2024-03-11 13:45] VITALS: BP 134/85
[2024-03-11] MEDS ORDERED: CIPRO500 MG PO (13:56)
[2024-03-11] MEDS ORDERED: XARE15TA PO (13:57)
== END 2024-03-11 15:24 | disposition home or self-care (01) | DRG 720 ==
LOC: ED 19:26 → ICCU 22:33 → EDHOLD 22:33 → ICCU 03-09 02:05
PROVIDERS: Nurse Practitioner Family; Student in an Organized Health Care Education/Training Program; ADMIT Internal Medicine; ATTEND Internal Medicine
DX: A41.9 Sepsis, unspecified organism (principal); D70.1 Agranulocytosis secondary to cancer chemotherapy; E83.51 Hypocalcemia; E86.1 Hypovolemia; E83.42 Hypomagnesemia; F43.10 Post-traumatic stress disorder, unspecified; J44.9 Chronic obstructive pulmonary disease, unspecified; C14.0 Malignant neoplasm of pharynx, unspecified; F17.200 Nicotine dependence, unspecified, uncomplicated; E86.0 Dehydration; N39.0 Urinary tract infection, site not specified; R73.9 Hyperglycemia, unspecified; E87.6 Hypokalemia; I10 Essential (primary) hypertension; K21.9 Gastro-esophageal reflux disease without esophagitis; I73.9 Peripheral vascular disease, unspecified; F41.9 Anxiety disorder, unspecified; F17.210 Nicotine dependence, cigarettes, uncomplicated; G89.29 Other chronic pain; I95.89 Other hypotension; T45.1X5A Adverse effect of antineoplastic and immunosuppressive drugs, initial encounter; Y92.89 Other specified places as the place of occurrence of the external cause; I25.10 Atherosclerotic heart disease of native coronary artery without angina pectoris; Z82.3 Family history of stroke; Z82.49 Family history of ischemic heart disease and other diseases of the circulatory system; Z88.2 Allergy status to sulfonamides; Z88.8 Allergy status to other drugs, medicaments and biological substances; Z91.011 Allergy to milk products; Z95.5 Presence of coronary angioplasty implant and graft; Z92.21 Personal history of antineoplastic chemotherapy; Z92.3 Personal history of irradiation

== ENCOUNTER 2024-03-28 21:24 | Emergency (ER) | payer OTHER ==
[~2024-03-28] VITALS: Ht 152.4 cm; Wt 48.5 kg
[~2024-03-28 21:24] MED LIST changes: +CLONIDINE HCL0.1 MG PO; +DIAZEPAM2 MG PO; +DRONABINOL10 MG PO; +FIBER THERAPY PO; +IMDUR SA30 MG PO; +LIPITOR40 MG PO; +METOPROLOL SUC100 M1 PO; +OXYBUTYNIN5 MG PO; +Phenergan25 MG PO; +VAZALORE81 MG PO; +VENT7GM INH; +XARE15TA PO
[2024-03-28] MEDS ORDERED: SODIUM CHLORIDE 0.9% 1,000 ML IV ONE (21:50)
[2024-03-28 22:03] LABS: HEMATOCRIT 31.6 % (37.0-47.0); MEAN CELL VOLUME 90.8 fl (81.0-99.0); MEAN CORPUSCULAR HGB 32.2 pg (27.0-31.0); MEAN CORPUSCULAR HGB CONC 35.4 g/dl (33.0-37.0); MEAN PLATELET VOLUME 9.1 fl (9.6-12.3); MONO # 0.2 10*3/uL (0.1-1.0); MONO % 5.9 % (3.0-9.0); NEUT # 2.2 10*3/uL (2.3-7.9); NEUT % 60.6 % (47.0-73.0); PLATELET COUNT AUTOMATED 208 10*3/uL (130-400); RED BLOOD COUNT 3.48 10*6/uL (4.10-5.10); RED CELL DISTRI WIDTH 13.4 % (0-14.5); WHITE BLOOD COUNT 3.6 10*3/uL (4.8-10.8)
[2024-03-28 22:21] LABS: BUN 12 mg/dl (9-23); CHLORIDE 102 mmol/L (98-107); POTASSIUM 3.5 mmol/L (3.4-5.1)
== END 2024-03-28 23:32 | disposition home or self-care (01) ==
LOC: ED 21:24
PROVIDERS: Physician Assistant Medical
DX: K20.80 Other esophagitis without bleeding (principal); E86.0 Dehydration; J44.9 Chronic obstructive pulmonary disease, unspecified; I25.10 Atherosclerotic heart disease of native coronary artery without angina pectoris; I10 Essential (primary) hypertension; K21.9 Gastro-esophageal reflux disease without esophagitis; F32.A Depression, unspecified; I25.2 Old myocardial infarction; G43.909 Migraine, unspecified, not intractable, without status migrainosus; M19.90 Unspecified osteoarthritis, unspecified site; F12.10 Cannabis abuse, uncomplicated; F17.200 Nicotine dependence, unspecified, uncomplicated; F13.10 Sedative, hypnotic or anxiolytic abuse, uncomplicated; Z88.2 Allergy status to sulfonamides; Z91.011 Allergy to milk products; Z88.8 Allergy status to other drugs, medicaments and biological substances; Z98.890 Other specified postprocedural states; Z90.710 Acquired absence of both cervix and uterus

== ENCOUNTER 2024-04-07 15:52 | Emergency (ER) | payer OTHER ==
[~2024-04-07] VITALS: Ht 152.4 cm; Wt 47.6 kg
[2024-04-07] MEDS ORDERED: Metoclopramide Hydrochloride 10 MG/2 ML VIAL IV ONE ×2 (17:35→17:40)
[2024-04-07] MEDS ORDERED: SODIUM CHLORIDE 0.9% 1,000 ML IV ONE (17:40)
[2024-04-07] MEDS ORDERED: diphenhydrAMINE hydrochloride 50 MG/ML VIAL IV ONE ×2 (17:40)
[2024-04-07 18:39] LABS: HEMATOCRIT 29.7 % (37.0-47.0); MEAN CELL VOLUME 92.5 fl (81.0-99.0); MEAN CORPUSCULAR HGB 32.4 pg (27.0-31.0); MEAN PLATELET VOLUME 9.3 fl (9.6-12.3); MONO # 0.3 10*3/uL (0.1-1.0); MONO % 12.1 % (3.0-9.0); NEUT # 1.5 10*3/uL (2.3-7.9); NEUT % 64.2 % (47.0-73.0); PLATELET COUNT AUTOMATED 149 10*3/uL (130-400); RED BLOOD COUNT 3.21 10*6/uL (4.10-5.10); RED CELL DISTRI WIDTH 14.7 % (0-14.5); WHITE BLOOD COUNT 2.4 10*3/uL (4.8-10.8)
[2024-04-07 19:00] LABS: ALKALINE PHOSPHATASE 88 U/L (46-116); BUN 13 mg/dl (9-23); CHLORIDE 106 mmol/L (98-107); POTASSIUM 3.7 mmol/L (3.4-5.1); SGPT/ALT 11 U/L (5-49); TOTAL PROTEIN 6.3 gm/dL (6.0-8.0)
[2024-04-07 20:49] LABS: BILIRUBIN Negative (Negative); BLOOD 3+ (Negative); CLARITY Cloudy (Clear); COLOR Yellow (Yellow); GLUCOSE Negative (Negative); KETONE 3+ (Negative); LEUKO ESTERASE Negative (Negative); NITRITE Negative (Negative); UROBILINOGEN 0.2 E.U./dl (0.0-1.0)
[2024-04-07 20:56] LABS: BACTERIA TRACE; MUCOUS 1+; RBC 31-40 rbc/hpf (0-2); WBC 0-2 wbc/hpf (0-5)
[2024-04-07] MEDS ORDERED: MAGNESIUM OXIDE 400 MG TAB PO ONE (21:20)
== END 2024-04-07 21:34 | disposition home or self-care (01) ==
LOC: ED 15:52
PROVIDERS: Internal Medicine
DX: R11.2 Nausea with vomiting, unspecified (principal); T45.1X5A Adverse effect of antineoplastic and immunosuppressive drugs, initial encounter; E83.42 Hypomagnesemia; R19.7 Diarrhea, unspecified; R42 Dizziness and giddiness; D61.818 Other pancytopenia; F17.210 Nicotine dependence, cigarettes, uncomplicated; Z88.2 Allergy status to sulfonamides; Z91.011 Allergy to milk products; Z88.8 Allergy status to other drugs, medicaments and biological substances; Z79.82 Long term (current) use of aspirin; Z79.899 Other long term (current) drug therapy; Z95.5 Presence of coronary angioplasty implant and graft; Z90.711 Acquired absence of uterus with remaining cervical stump; Z90.89 Acquired absence of other organs; Y92.89 Other specified places as the place of occurrence of the external cause

== ENCOUNTER 2024-05-06 19:06 | Emergency (ER) | payer OTHER ==
[~2024-05-06] VITALS: Wt 39.5 kg
[2024-05-06] MEDS ORDERED: SODIUM CHLORIDE 0.9% 1,000 ML IV ONE (19:35)
[2024-05-06 19:50] LABS: HEMATOCRIT 22.6 % (37.0-47.0); MEAN CELL VOLUME 103.2 fl (81.0-99.0); MEAN CORPUSCULAR HGB 35.6 pg (27.0-31.0); MEAN CORPUSCULAR HGB CONC 34.5 g/dl (33.0-37.0); MEAN PLATELET VOLUME 10.1 fl (9.6-12.3); MONO # 0.6 10*3/uL (0.1-1.0); MONO % 19.4 % (3.0-9.0); NEUT # 1.9 10*3/uL (2.3-7.9); PLATELET COUNT AUTOMATED 179 10*3/uL (130-400); RED BLOOD COUNT 2.19 10*6/uL (4.10-5.10); RED CELL DISTRI WIDTH 23.2 % (0-14.5); WHITE BLOOD COUNT 2.9 10*3/uL (4.8-10.8)
[2024-05-06 20:16] LABS: BUN 11 mg/dl (9-23); CHLORIDE 100 mmol/L (98-107); POTASSIUM 3.6 mmol/L (3.4-5.1)
[2024-05-06] MEDS ORDERED: MAGNESIUM SULFATE 50 ML IV ONE (20:25)
== END 2024-05-06 23:08 | disposition home or self-care (01) ==
LOC: ED 19:06
PROVIDERS: Internal Medicine
DX: R63.0 Anorexia (principal); E83.42 Hypomagnesemia; D72.819 Decreased white blood cell count, unspecified; D53.9 Nutritional anemia, unspecified; C76.0 Malignant neoplasm of head, face and neck; C79.89 Secondary malignant neoplasm of other specified sites; Z68.1 Body mass index [BMI] 19.9 or less, adult; J44.9 Chronic obstructive pulmonary disease, unspecified; G43.909 Migraine, unspecified, not intractable, without status migrainosus; I25.2 Old myocardial infarction; M19.90 Unspecified osteoarthritis, unspecified site; F17.200 Nicotine dependence, unspecified, uncomplicated; F12.10 Cannabis abuse, uncomplicated; F11.10 Opioid abuse, uncomplicated; F13.10 Sedative, hypnotic or anxiolytic abuse, uncomplicated; Z88.2 Allergy status to sulfonamides; Z91.011 Allergy to milk products; Z88.8 Allergy status to other drugs, medicaments and biological substances; Z98.890 Other specified postprocedural states; Z90.89 Acquired absence of other organs; Z90.49 Acquired absence of other specified parts of digestive tract

== ENCOUNTER → 2024-05-15 | Outpatient (CLI) | payer OTHER ==
[2024-05-15 14:41] LABS: HEMATOCRIT 29.6 % (37.0-47.0); MEAN CELL VOLUME 109.2 fl (81.0-99.0); RED BLOOD COUNT 2.71 10*6/uL (4.10-5.10); WHITE BLOOD COUNT 3.8 10*3/uL (4.8-10.8)
[2024-05-15 15:05] LABS: MEAN CORPUSCULAR HGB 35.4 pg (27.0-31.0); MEAN CORPUSCULAR HGB CONC 32.4 g/dl (33.0-37.0); MEAN PLATELET VOLUME 9.3 fl (9.6-12.3); PLATELET COUNT AUTOMATED 322 10*3/uL (130-400); RED CELL DISTRI WIDTH 21.7 % (0-14.5)
[2024-05-15 15:06] LABS: MANUAL DIFF REFLEX YES
[2024-05-15 15:38] LABS: PLATELET SUFFICIENCY NORMAL (NORMAL); TOTAL CELLS COUNTED 100 #CELLS
[2024-05-15 15:39] LABS: OVALOCYTES FEW; POLYCHROMASIA SLIGHT
== END | disposition home or self-care (01) ==
LOC: LAB 14:02
PROVIDERS: ATTEND Internal Medicine Hematology & Oncology
DX: Z51.11 Encounter for antineoplastic chemotherapy (principal); Z45.2 Encounter for adjustment and management of vascular access device; C32.1 Malignant neoplasm of supraglottis; R11.2 Nausea with vomiting, unspecified; K52.1 Toxic gastroenteritis and colitis; G62.0 Drug-induced polyneuropathy

== ENCOUNTER 2024-09-11 16:12 | Emergency (ER) | payer OTHER ==
[~2024-09-11] VITALS: Wt 39.9 kg
[2024-09-11 16:55] LABS: BILIRUBIN Negative (Negative); BLOOD 3+ (Negative); CLARITY Cloudy (Clear); COLOR Orange (Yellow); GLUCOSE Negative (Negative); KETONE Negative (Negative); LEUKO ESTERASE Trace (Negative); NITRITE Negative (Negative); SPECIFIC GRAVITY 1.015 (1.001-1.030)
[2024-09-11 17:03] LABS: BASO % 0.2 % (0.0-1.0); MEAN CORPUSCULAR HGB 32.8 pg (27.0-31.0); MEAN CORPUSCULAR HGB CONC 34.1 g/dl (33.0-37.0); MEAN PLATELET VOLUME 9.2 fl (9.6-12.3); MONO # 0.3 10*3/uL (0.1-1.0); MONO % 8.2 % (3.0-9.0); NEUT # 2.7 10*3/uL (2.3-7.9); NEUT % 64.8 % (47.0-73.0); PLATELET COUNT AUTOMATED 204 10*3/uL (130-400); RED BLOOD COUNT 4.27 10*6/uL (4.10-5.10); RED CELL DISTRI WIDTH 12.6 % (0-14.5); WHITE BLOOD COUNT 4.1 10*3/uL (4.8-10.8)
[2024-09-11 17:13] LABS: BACTERIA 1+; RBC TNTC rbc/hpf (0-2)
[2024-09-11 17:25] LABS: BUN 12 mg/dl (9-23); CHLORIDE 105 mmol/L (98-107); POTASSIUM 3.9 mmol/L (3.4-5.1)
[2024-09-11] MEDS ORDERED: Ciprofloxacin Hydrochloride 500 MG TAB PO ONE (17:55)
[2024-09-11] MEDS ORDERED: CIPRO500 MG PO (17:56)
== END 2024-09-11 18:10 | disposition home or self-care (01) ==
LOC: ED 16:12
PROVIDERS: Nurse Practitioner Family
DX: R31.9 Hematuria, unspecified (principal); F17.210 Nicotine dependence, cigarettes, uncomplicated; Z88.2 Allergy status to sulfonamides; Z88.8 Allergy status to other drugs, medicaments and biological substances; Z91.011 Allergy to milk products; Z79.899 Other long term (current) drug therapy; Z79.82 Long term (current) use of aspirin; Z95.5 Presence of coronary angioplasty implant and graft; Z90.89 Acquired absence of other organs

== ENCOUNTER 2024-09-13 14:25 | Emergency (ER) | payer OTHER ==
[~2024-09-13] VITALS: Ht 154.9 cm; Wt 39.9 kg
[2024-09-13 15:19] LABS: BASO % 0.2 % (0.0-1.0); EOS % 0.2 % (1.0-4.0); HEMATOCRIT 42.3 % (37.0-47.0); MEAN CELL VOLUME 96.6 fl (81.0-99.0); MEAN CORPUSCULAR HGB 32.2 pg (27.0-31.0); MEAN CORPUSCULAR HGB CONC 33.3 g/dl (33.0-37.0); MEAN PLATELET VOLUME 9.2 fl (9.6-12.3); MONO # 0.5 10*3/uL (0.1-1.0); NEUT # 3.3 10*3/uL (2.3-7.9); NEUT % 63.8 % (47.0-73.0); PLATELET COUNT AUTOMATED 232 10*3/uL (130-400); RED BLOOD COUNT 4.38 10*6/uL (4.10-5.10); RED CELL DISTRI WIDTH 12.5 % (0-14.5); WHITE BLOOD COUNT 5.2 10*3/uL (4.8-10.8)
[2024-09-13 15:28] LABS: BILIRUBIN Negative (Negative); BLOOD 3+ (Negative); CLARITY Cloudy (Clear); COLOR Yellow (Yellow); GLUCOSE Negative (Negative); KETONE Trace (Negative); LEUKO ESTERASE Trace (Negative); NITRITE Negative (Negative)
[2024-09-13 15:29] LABS: ACT PARTIAL THROMBO TIME 29.3 SECONDS (20.0-32.1)
[2024-09-13 15:36] LABS: BACTERIA TRACE; RBC TNTC rbc/hpf (0-2)
[2024-09-13 15:40] LABS: ALKALINE PHOSPHATASE 112 U/L (46-116); BUN 11 mg/dl (9-23); CHLORIDE 106 mmol/L (98-107); LIPASE 32 U/L (12-53); POTASSIUM 3.5 mmol/L (3.4-5.1); SGPT/ALT 8 U/L (5-49); TOTAL PROTEIN 6.7 gm/dL (6.0-8.0)
[2024-09-13] MEDS ORDERED: OXYCODONE HCL (IR) 5 MG TAB PO ONE (16:20)
[2024-09-13] MEDS ORDERED: Ondansetron4 MG PO (16:26)
[2024-09-13] MEDS ORDERED: FLOMAX0.4 MG PO (16:26)
[2024-09-13] MEDS ORDERED: Tamsulosin Hydrochloride 0.4 MG CAP PO ONE (16:30)
== END 2024-09-13 16:33 | disposition home or self-care (01) ==
LOC: ED 14:25
PROVIDERS: Nurse Practitioner Family
DX: N20.0 Calculus of kidney (principal); K83.8 Other specified diseases of biliary tract; Z88.2 Allergy status to sulfonamides; Z88.8 Allergy status to other drugs, medicaments and biological substances; Z91.011 Allergy to milk products; Z79.899 Other long term (current) drug therapy; Z79.82 Long term (current) use of aspirin; Z95.5 Presence of coronary angioplasty implant and graft; Z90.89 Acquired absence of other organs; Z90.711 Acquired absence of uterus with remaining cervical stump; Z98.890 Other specified postprocedural states; Z87.891 Personal history of nicotine dependence

== ENCOUNTER 2024-12-17 18:06 | Inpatient (IN) | payer OTHER ==
[~2024-12-17] VITALS: Ht 152.4 cm; Wt 33.3 kg
[~2024-12-17 18:06] MED LIST changes: +FLOMAX0.4 MG PO
[2024-12-17 18:48] VITALS: BP 159/96
[2024-12-17] MEDS ORDERED: SODIUM CHLORIDE 0.9% 500 ML IV ONE (19:30)
[2024-12-17] MEDS ORDERED: Promethazine Hydrochloride 25 MG/ML VIAL IV ONE (19:30)
[2024-12-17 19:53] LABS: MEAN CELL VOLUME 103.5 fl (81.0-99.0); MEAN CORPUSCULAR HGB 32.6 pg (27.0-31.0); MEAN PLATELET VOLUME 9.1 fl (9.6-12.3); NUCLEATED RED BLOOD CELL 0.0 % (0.0-0.0); NUCLEATED RED BLOOD CELL 0.0 10*3/uL (0.0-0.0); PLATELET COUNT AUTOMATED 237 10*3/uL (130-400); RED CELL DISTRI WIDTH 12.1 % (0-14.5)
[2024-12-17 20:18] LABS: BUN 13 mg/dl (9-23); SGPT/ALT 22 U/L (5-49)
[2024-12-17 20:24] LABS: MANUAL DIFF REFLEX YES
[2024-12-17 20:27] LABS: PLATELET SUFFICIENCY NORMAL (NORMAL)
[2024-12-17] MEDS ORDERED: IOHEXOL 300 MG/ML 100 ML VIAL IV ONE (21:25)
[2024-12-17] MEDS ORDERED: Ondansetron Hydrochloride 4 MG/2 ML VIAL IV ONE (21:40)
[2024-12-17 21:42] LABS: BILIRUBIN Negative (Negative); BLOOD Negative (Negative); CLARITY Clear (Clear); COLOR Yellow (Yellow); KETONE 2+ (Negative); LEUKO ESTERASE Negative (Negative); NITRITE Negative (Negative); PH 6.5 (4.5-8.0); SPECIFIC GRAVITY 1.020 (1.001-1.030); UROBILINOGEN 0.2 E.U./dl (0.0-1.0)
[2024-12-17 21:49] LABS: BACTERIA TRACE; HYALINE CAST 0-2; MUCOUS 1+; RBC 0-2 rbc/hpf (0-2); WBC 0-2 wbc/hpf (0-5)
[2024-12-18] MEDS ORDERED: ACETAMINOPHEN 325 MG TAB PO PRN (00:30)
[2024-12-18] MEDS ORDERED: BISACODYL 5 MG TAB PO PRN (00:30)
[2024-12-18] MEDS ORDERED: ACETAMINOPHEN 650 MG SUPP R PRN (00:30)
[2024-12-18] MEDS ORDERED: BISACODYL 10 MG SUPP R PRN (00:30)
[2024-12-18] MEDS ORDERED: Ondansetron Hydrochloride 4 MG/2 ML VIAL IV PRN (00:30)
[2024-12-18] MEDS ORDERED: Metoclopramide Hydrochloride 10 MG/2 ML VIAL IV PRN (00:35)
[2024-12-18] MEDS ORDERED: SODIUM CHLORIDE 0.9% 1,000 ML IV ONE (00:35)
[2024-12-18] MEDS ORDERED: Promethazine Hydrochloride 25 MG/ML VIAL IV PRN (00:40)
[2024-12-18] MEDS ORDERED: RIVAROXABAN 15 MG TAB PO SCH (00:45)
[2024-12-18] MEDS ORDERED: Clopidogrel Hydrogen Sulfate 75 MG TAB PO SCH (00:45)
[2024-12-18] MEDS ORDERED: Promethazine Hydrochloride 25 MG TAB PO PRN ×2 (00:45→00:55)
[2024-12-18] MEDS ORDERED: PROMETHAZINE HC25 M1 PO (00:46)
[2024-12-18] MEDS ORDERED: OXYCODONE HCL5 MG PO (00:46)
[2024-12-18] MEDS ORDERED: DOXYCYCLINE MO100 MG PO (00:47)
[2024-12-18] MEDS ORDERED: CHEST CONG100 MG/5 M (00:47)
[2024-12-18] MEDS ORDERED: NITROGLYCERIN0.4 MG SL (00:48)
[2024-12-18] MEDS ORDERED: DIAZEPAM2 MG PO (00:48)
[2024-12-18] MEDS ORDERED: OMEPRAZOLE40 MG PO (00:49)
[2024-12-18 01:12] VITALS: BP 166/90
[2024-12-18] MEDS ORDERED: Albuterol Sulf/Ipratropium 3 ML VIAL NEB PRN (01:20)
[2024-12-18 02:32] VITALS: BP 154/90
[2024-12-18] MEDS ORDERED: OXYCODONE HCL (IR) 5 MG TAB PO SCH (06:00)
[2024-12-18 06:24] LABS: BASO # 0.0 10*3/uL (0.0-0.1); BASO % 0.1 % (0.0-1.0); EOS # 0.0 10*3/uL (0.0-0.4); EOS % 0.0 % (1.0-4.0); MEAN CORPUSCULAR HGB 32.1 pg (27.0-31.0); MEAN PLATELET VOLUME 9.2 fl (9.6-12.3); MONO # 0.2 10*3/uL (0.1-1.0); MONO % 2.8 % (3.0-9.0); NEUT # 6.5 10*3/uL (2.3-7.9); NEUT % 89.5 % (47.0-73.0); NUCLEATED RED BLOOD CELL 0.0 % (0.0-0.0); NUCLEATED RED BLOOD CELL 0.0 10*3/uL (0.0-0.0); PLATELET COUNT AUTOMATED 235 10*3/uL (130-400); RED CELL DISTRI WIDTH 12.2 % (0-14.5)
[2024-12-18 06:28] LABS: BUN 10 mg/dl (9-23); LDL CHOLESTEROL 140 mg/dL (9-159)
[2024-12-18 06:30] LABS: MEAN CELL VOLUME 94.6 fl (81.0-99.0)
[2024-12-18 08:00] VITALS: BP 156/85
[2024-12-18] MEDS ORDERED: OLANZapine 10 MG TAB PO SCH (10:00)
[2024-12-18] MEDS ORDERED: GUAIFENESIN 600 MG TAB ER PO SCH (10:00)
[2024-12-18] MEDS ORDERED: diazePAM 2 MG TAB PO SCH (10:00)
[2024-12-18 12:00] VITALS: BP 160/80
[2024-12-18] MEDS ORDERED: Metoclopramide Hydrochloride 10 MG/2 ML VIAL IV ONE (12:55)
[2024-12-18 16:00] VITALS: BP 151/90
[2024-12-18 20:00] VITALS: BP 149/86
[2024-12-19] VITALS: BP 176/96
[2024-12-19 06:40] LABS: BASO # 0.0 10*3/uL (0.0-0.1); BASO % 0.0 % (0.0-1.0); EOS # 0.0 10*3/uL (0.0-0.4); EOS % 0.0 % (1.0-4.0); MEAN CELL VOLUME 91.9 fl (81.0-99.0); MEAN CORPUSCULAR HGB 32.3 pg (27.0-31.0); MEAN PLATELET VOLUME 8.8 fl (9.6-12.3); MONO # 0.7 10*3/uL (0.1-1.0); MONO % 6.3 % (3.0-9.0); NEUT # 9.6 10*3/uL (2.3-7.9); NEUT % 84.6 % (47.0-73.0); NUCLEATED RED BLOOD CELL 0.0 % (0.0-0.0); NUCLEATED RED BLOOD CELL 0.0 10*3/uL (0.0-0.0); PLATELET COUNT AUTOMATED 247 10*3/uL (130-400); RED CELL DISTRI WIDTH 12.1 % (0-14.5)
[2024-12-19 08:00] VITALS: BP 168/97
[2024-12-19 11:55] VITALS: BP 154/98
[2024-12-19 16:00] VITALS: BP 161/94
[2024-12-19 20:00] VITALS: BP 169/104
[2024-12-19] MEDS ORDERED: RIVAROXABAN 15 MG TAB PO SCH (22:00)
[2024-12-20] VITALS: BP 168/104
[2024-12-20 06:23] LABS: BASO # 0.0 10*3/uL (0.0-0.1); BASO % 0.1 % (0.0-1.0); EOS # 0.0 10*3/uL (0.0-0.4); EOS % 0.0 % (1.0-4.0); MEAN CELL VOLUME 91.0 fl (81.0-99.0); MEAN CORPUSCULAR HGB 32.0 pg (27.0-31.0); MEAN PLATELET VOLUME 9.0 fl (9.6-12.3); MONO # 1.0 10*3/uL (0.1-1.0); MONO % 8.5 % (3.0-9.0); NEUT # 9.1 10*3/uL (2.3-7.9); NEUT % 81.0 % (47.0-73.0); NUCLEATED RED BLOOD CELL 0.0 % (0.0-0.0); NUCLEATED RED BLOOD CELL 0.0 10*3/uL (0.0-0.0); PLATELET COUNT AUTOMATED 253 10*3/uL (130-400); RED CELL DISTRI WIDTH 12.1 % (0-14.5)
[2024-12-20 06:55] LABS: BUN 19 mg/dl (9-23)
[2024-12-20 08:00] VITALS: BP 147/95
[2024-12-20] MEDS ORDERED: POTASSIUM CHLORIDE 20 MEQ TAB PO ONE (09:35)
[2024-12-20 12:00] VITALS: BP 159/83
[2024-12-20 16:00] VITALS: BP 119/99
[2024-12-20 20:00] VITALS: BP 177/97
[2024-12-21] VITALS: BP 148/89
[2024-12-21 08:00] VITALS: BP 112/90
[2024-12-21 08:10] LABS: BUN 18 mg/dl (9-23)
[2024-12-21] MEDS ORDERED: ERGOCALCIFEROL 50,000 IU CAP (1.25 MG) PO SCH (10:00)
[2024-12-21 12:00] VITALS: BP 122/88
[2024-12-21] MEDS ORDERED: AMOX-CLAV 875-1 EACH PO (12:21)
[2024-12-21] MEDS ORDERED: LOPRESSOR25 MG PO (12:21)
[2024-12-21] MEDS ORDERED: PREDNISONE10 MG PO (12:21)
== END 2024-12-21 17:30 | disposition home or self-care (01) | DRG 241 ==
LOC: ED 18:06 → 5E 12-18 00:13 → EDHOLD 12-18 00:13 → 5E 12-18 01:11
PROVIDERS: Nurse Practitioner Family; ADMIT Internal Medicine; ATTEND Internal Medicine
PROC: 0HBRXZZ Excision of Toe Nail, External Approach (ICD-10-PCS; principal; 2024-12-20)
PROC: 0HBRXZZ Excision of Toe Nail, External Approach (ICD-10-PCS; 2024-12-20)
PROC: 0HBRXZZ Excision of Toe Nail, External Approach (ICD-10-PCS; 2024-12-20)
PROC: 0HBRXZZ Excision of Toe Nail, External Approach (ICD-10-PCS; 2024-12-20)
PROC: 0HBRXZZ Excision of Toe Nail, External Approach (ICD-10-PCS; 2024-12-20)
PROC: 0HBRXZZ Excision of Toe Nail, External Approach (ICD-10-PCS; 2024-12-20)
PROC: 0HBRXZZ Excision of Toe Nail, External Approach (ICD-10-PCS; 2024-12-20)
PROC: 0HBRXZZ Excision of Toe Nail, External Approach (ICD-10-PCS; 2024-12-20)
PROC: 0HBRXZZ Excision of Toe Nail, External Approach (ICD-10-PCS; 2024-12-20)
PROC: 0HBRXZZ Excision of Toe Nail, External Approach (ICD-10-PCS; 2024-12-20)
DX: K29.00 Acute gastritis without bleeding (principal); F33.2 Major depressive disorder, recurrent severe without psychotic features; C14.0 Malignant neoplasm of pharynx, unspecified; J44.1 Chronic obstructive pulmonary disease with (acute) exacerbation; J44.0 Chronic obstructive pulmonary disease with (acute) lower respiratory infection; J45.901 Unspecified asthma with (acute) exacerbation; I74.10 Embolism and thrombosis of unspecified parts of aorta; C34.91 Malignant neoplasm of unspecified part of right bronchus or lung; J44.9 Chronic obstructive pulmonary disease, unspecified; F41.1 Generalized anxiety disorder; I25.10 Atherosclerotic heart disease of native coronary artery without angina pectoris; I10 Essential (primary) hypertension; F43.10 Post-traumatic stress disorder, unspecified; K21.9 Gastro-esophageal reflux disease without esophagitis; K58.9 Irritable bowel syndrome, unspecified; R73.9 Hyperglycemia, unspecified; F17.200 Nicotine dependence, unspecified, uncomplicated; G89.3 Neoplasm related pain (acute) (chronic); I73.9 Peripheral vascular disease, unspecified; E55.9 Vitamin D deficiency, unspecified; J20.9 Acute bronchitis, unspecified; B35.1 Tinea unguium; E87.6 Hypokalemia; Z83.3 Family history of diabetes mellitus; Z82.3 Family history of stroke; Z88.8 Allergy status to other drugs, medicaments and biological substances; Z86.718 Personal history of other venous thrombosis and embolism; Z79.01 Long term (current) use of anticoagulants; Z85.818 Personal history of malignant neoplasm of other sites of lip, oral cavity, and pharynx; Z71.6 Tobacco abuse counseling

== ENCOUNTER → 2024-12-24 | Outpatient (CLI) | payer OTHER ==
[~2024-12-24] MED LIST changes: +AMOX-CLAV 875-1 EACH PO; +CHEST CONG100 MG/5 M; +DOXYCYCLINE MO100 MG PO; +NITROGLYCERIN0.4 MG SL; +OMEPRAZOLE40 MG PO; +OXYCODONE HCL5 MG PO; +PROMETHAZINE HC25 M1 PO
[2024-12-24 14:09] LABS: MEAN CELL VOLUME 95.9 fl (81.0-99.0); MEAN CORPUSCULAR HGB 32.3 pg (27.0-31.0); MEAN PLATELET VOLUME 8.7 fl (9.6-12.3); NUCLEATED RED BLOOD CELL 0.0 % (0.0-0.0); NUCLEATED RED BLOOD CELL 0.0 10*3/uL (0.0-0.0); PLATELET COUNT AUTOMATED 208 10*3/uL (130-400); RED CELL DISTRI WIDTH 12.0 % (0-14.5)
[2024-12-24 14:10] LABS: MANUAL DIFF REFLEX YES
[2024-12-24 14:32] LABS: BUN 16 mg/dl (9-23); SGPT/ALT 13 U/L (5-49)
[2024-12-24 14:36] LABS: PLATELET SUFFICIENCY NORMAL (NORMAL)
== END | disposition home or self-care (01) ==
LOC: LAB 13:39
PROVIDERS: ATTEND Internal Medicine
DX: R53.1 Weakness (principal)

== ENCOUNTER → 2024-12-26 | Outpatient (CLI) | payer OTHER ==
[~2024-12-26] MED LIST changes: +IOHEXOL 300 MG/ML 100 ML VIAL IV ONE; +IOHEXOL 350 MG/ML 100 ML VIAL IV ONE
== END | disposition home or self-care (01) ==
LOC: CT 12-18 16:00
PROVIDERS: ATTEND Urology
DX: R31.9 Hematuria, unspecified (principal); J43.9 Emphysema, unspecified

== ENCOUNTER 2025-01-16 01:12 | Emergency (ER) | payer OTHER ==
[~2025-01-16] VITALS: Ht 152.4 cm; Wt 40.8 kg
[~2025-01-16 01:12] MED LIST changes: -IOHEXOL 300 MG/ML 100 ML VIAL IV ONE; -IOHEXOL 350 MG/ML 100 ML VIAL IV ONE
[2025-01-16] MEDS ORDERED: COLACE100 MG PO (01:49)
[2025-01-16] MEDS ORDERED: BREYNA 160-4.10.3 GM INH (01:50)
[2025-01-16 02:16] LABS: BASO # 0.0 10*3/uL (0.0-0.1); BASO % 0.2 % (0.0-1.0); EOS # 0.0 10*3/uL (0.0-0.4); EOS % 0.6 % (1.0-4.0); MEAN CELL VOLUME 97.2 fl (81.0-99.0); MEAN CORPUSCULAR HGB 32.7 pg (27.0-31.0); MEAN PLATELET VOLUME 8.8 fl (9.6-12.3); MONO # 0.5 10*3/uL (0.1-1.0); MONO % 9.4 % (3.0-9.0); NEUT # 3.7 10*3/uL (2.3-7.9); NEUT % 67.3 % (47.0-73.0); NUCLEATED RED BLOOD CELL 0.0 % (0.0-0.0); NUCLEATED RED BLOOD CELL 0.0 10*3/uL (0.0-0.0); PLATELET COUNT AUTOMATED 252 10*3/uL (130-400); RED CELL DISTRI WIDTH 13.0 % (0-14.5)
[2025-01-16 02:28] LABS: BUN 12 mg/dl (9-23); CPK 27 U/L (34-171)
== END 2025-01-16 03:19 | disposition home or self-care (01) ==
LOC: ED 01:12
DX: R07.89 Other chest pain (principal); R11.0 Nausea; I25.2 Old myocardial infarction; I10 Essential (primary) hypertension; F41.9 Anxiety disorder, unspecified; J44.9 Chronic obstructive pulmonary disease, unspecified; K21.9 Gastro-esophageal reflux disease without esophagitis; M19.90 Unspecified osteoarthritis, unspecified site; I73.9 Peripheral vascular disease, unspecified; F32.A Depression, unspecified; F17.200 Nicotine dependence, unspecified, uncomplicated; Z95.5 Presence of coronary angioplasty implant and graft; Z88.2 Allergy status to sulfonamides; Z91.0110 Allergy to milk products, unspecified; Z88.8 Allergy status to other drugs, medicaments and biological substances; Z79.899 Other long term (current) drug therapy; Z90.89 Acquired absence of other organs

== ENCOUNTER 2025-02-01 19:49 | Emergency (ER) | payer OTHER ==
[~2025-02-01] VITALS: Ht 152.4 cm; Wt 39.9 kg
[~2025-02-01 19:49] MED LIST changes: +BREYNA 160-4.10.3 GM INH
[2025-02-01] MEDS ORDERED: Water, Sterile 10 ML VIAL ONE (20:47)
== END 2025-02-01 22:34 | disposition home or self-care (01) ==
LOC: ED 19:49
DX: T50.905A Adverse effect of unspecified drugs, medicaments and biological substances, initial encounter (principal); F17.210 Nicotine dependence, cigarettes, uncomplicated; Z98.890 Other specified postprocedural states; Z90.89 Acquired absence of other organs; Z88.1 Allergy status to other antibiotic agents; Z88.2 Allergy status to sulfonamides; Z88.8 Allergy status to other drugs, medicaments and biological substances; Z91.0110 Allergy to milk products, unspecified; Y92.89 Other specified places as the place of occurrence of the external cause

== ENCOUNTER → 2025-02-08 | Outpatient (CLI) | payer OTHER ==
[~2025-02-08] MED LIST changes: +PREDNISONE20 M1 PO
== END | disposition home or self-care (01) ==
LOC: CARD 00:21
PROVIDERS: ATTEND Nurse Practitioner Family
DX: R00.0 Tachycardia, unspecified (principal); R00.2 Palpitations; R07.89 Other chest pain; R94.31 Abnormal electrocardiogram [ECG] [EKG]

== ENCOUNTER 2025-02-10 21:26 | Emergency (ER) | payer OTHER ==
[~2025-02-10] VITALS: Ht 152.4 cm; Wt 46.3 kg
[~2025-02-10 21:26] MED LIST changes: -PREDNISONE20 M1 PO
[2025-02-10] MEDS ORDERED: HYDROmorphONE Hydrochloride 0.5 MG/0.5 ML SYRINGE IM ONE (21:50)
[2025-02-10] MEDS ORDERED: PREDNISONE20 M1 PO (22:27)
== END 2025-02-10 22:49 | disposition home or self-care (01) ==
LOC: ED 21:26
DX: G89.29 Other chronic pain (principal); R07.0 Pain in throat; I10 Essential (primary) hypertension; F41.9 Anxiety disorder, unspecified; J44.9 Chronic obstructive pulmonary disease, unspecified; K21.9 Gastro-esophageal reflux disease without esophagitis; I73.9 Peripheral vascular disease, unspecified; F17.200 Nicotine dependence, unspecified, uncomplicated; Z88.2 Allergy status to sulfonamides; Z91.0110 Allergy to milk products, unspecified; Z88.8 Allergy status to other drugs, medicaments and biological substances; Z79.899 Other long term (current) drug therapy; Z95.5 Presence of coronary angioplasty implant and graft; Z90.89 Acquired absence of other organs

== ENCOUNTER 2025-02-12 15:46 | Emergency (ER) | payer OTHER ==
[~2025-02-12] VITALS: Ht 152.4 cm; Wt 39.9 kg
[~2025-02-12 15:46] MED LIST changes: +PREDNISONE20 M1 PO
[2025-02-12 17:02] LABS: BASO # 0.0 10*3/uL (0.0-0.1); BASO % 0.2 % (0.0-1.0); EOS # 0.0 10*3/uL (0.0-0.4); EOS % 0.8 % (1.0-4.0); MEAN CELL VOLUME 96.0 fl (81.0-99.0); MEAN CORPUSCULAR HGB 33.2 pg (27.0-31.0); MEAN PLATELET VOLUME 8.9 fl (9.6-12.3); MONO # 0.4 10*3/uL (0.1-1.0); MONO % 8.3 % (3.0-9.0); NEUT # 3.5 10*3/uL (2.3-7.9); NEUT % 66.3 % (47.0-73.0); NUCLEATED RED BLOOD CELL 0.0 % (0.0-0.0); NUCLEATED RED BLOOD CELL 0.0 10*3/uL (0.0-0.0); PLATELET COUNT AUTOMATED 221 10*3/uL (130-400); RED CELL DISTRI WIDTH 13.1 % (0-14.5)
[2025-02-12 17:21] LABS: BUN 14 mg/dl (9-23)
== END 2025-02-12 18:12 | disposition home or self-care (01) ==
LOC: ED 15:46
PROVIDERS: Nurse Practitioner Family
DX: R59.0 Localized enlarged lymph nodes (principal); F17.200 Nicotine dependence, unspecified, uncomplicated; Z85.21 Personal history of malignant neoplasm of larynx; Z88.2 Allergy status to sulfonamides; Z91.0110 Allergy to milk products, unspecified; Z88.8 Allergy status to other drugs, medicaments and biological substances; Z79.899 Other long term (current) drug therapy; Z95.5 Presence of coronary angioplasty implant and graft; Z90.89 Acquired absence of other organs; Z90.711 Acquired absence of uterus with remaining cervical stump

== ENCOUNTER 2025-02-23 17:30 | Emergency (ER) | payer OTHER ==
[~2025-02-23] VITALS: Ht 152.4 cm; Wt 39.9 kg
[2025-02-23] MEDS ORDERED: Ondansetron Hydrochloride 4 MG TAB PO ONE (18:35)
[2025-02-23] MEDS ORDERED: HYDROmorphONE Hydrochloride 0.5 MG/0.5 ML SYRINGE IM ONE (18:35)
== END 2025-02-23 19:00 | disposition home or self-care (01) ==
LOC: ED 17:30
DX: G89.29 Other chronic pain (principal); J44.9 Chronic obstructive pulmonary disease, unspecified; G43.909 Migraine, unspecified, not intractable, without status migrainosus; I25.2 Old myocardial infarction; M19.90 Unspecified osteoarthritis, unspecified site; F17.210 Nicotine dependence, cigarettes, uncomplicated; Z88.1 Allergy status to other antibiotic agents; Z88.2 Allergy status to sulfonamides; Z88.8 Allergy status to other drugs, medicaments and biological substances; Z91.0110 Allergy to milk products, unspecified

== ENCOUNTER 2025-03-15 21:53 | Emergency (ER) | payer OTHER ==
[~2025-03-15] VITALS: Ht 152.4 cm; Wt 39.9 kg
[~2025-03-15 21:53] MED LIST changes: +LEXAPRO10 MG PO; +MELATONIN10 M7 PO; +OXYCODONE-ACET1 EAC3 PO; +PILOCARPINE HYDR5 MG PO
[2025-03-16] MEDS ORDERED: OXYCODONE HCL (IR) 10 MG TABLET PO ONE (00:20)
== END 2025-03-16 00:47 | disposition home or self-care (01) ==
LOC: ED 21:53
DX: R51.9 Headache, unspecified (principal); Z76.0 Encounter for issue of repeat prescription; F17.200 Nicotine dependence, unspecified, uncomplicated; Z88.2 Allergy status to sulfonamides; Z91.0110 Allergy to milk products, unspecified; Z88.8 Allergy status to other drugs, medicaments and biological substances; Z79.899 Other long term (current) drug therapy; Z95.5 Presence of coronary angioplasty implant and graft; Z90.89 Acquired absence of other organs; Z90.710 Acquired absence of both cervix and uterus

== ENCOUNTER 2025-03-19 02:28 | Emergency (ER) | payer OTHER ==
[2025-03-19] MEDS ORDERED: SALINE NASAL SP44 ML NAS (02:41)
== END 2025-03-19 03:06 | disposition home or self-care (01) ==
LOC: ED 02:28
DX: J34.89 Other specified disorders of nose and nasal sinuses (principal); R04.0 Epistaxis; F17.200 Nicotine dependence, unspecified, uncomplicated; Z88.2 Allergy status to sulfonamides; Z88.8 Allergy status to other drugs, medicaments and biological substances; Z91.0110 Allergy to milk products, unspecified; Z79.899 Other long term (current) drug therapy; Z90.89 Acquired absence of other organs; Z90.711 Acquired absence of uterus with remaining cervical stump; Z86.718 Personal history of other venous thrombosis and embolism

== ENCOUNTER 2025-03-21 23:01 | Emergency (ER) | payer OTHER ==
[~2025-03-21] VITALS: Ht 152.4 cm; Wt 38.6 kg
[~2025-03-21 23:01] MED LIST changes: +SALINE NASAL SP44 ML NAS
[2025-03-21] MEDS ORDERED: PERCOCET 5-3251 EACH PO (23:09)
[2025-03-22] MEDS ORDERED: MEDROL DOSEPAK4 MG PO (01:09)
== END 2025-03-22 01:35 | disposition home or self-care (01) ==
LOC: ED 23:01
DX: J44.9 Chronic obstructive pulmonary disease, unspecified (principal); Z76.0 Encounter for issue of repeat prescription; F17.200 Nicotine dependence, unspecified, uncomplicated; Z88.8 Allergy status to other drugs, medicaments and biological substances; Z88.2 Allergy status to sulfonamides; Z88.1 Allergy status to other antibiotic agents; Z91.0110 Allergy to milk products, unspecified

== ENCOUNTER 2025-03-26 06:08 | Emergency (ER) | payer OTHER ==
[~2025-03-26] VITALS: Ht 160 cm; Wt 38.6 kg
[~2025-03-26 06:08] MED LIST changes: +PERCOCET 5-3251 EACH PO
[2025-03-26 06:37] LABS: BASO # 0.0 10*3/uL (0.0-0.1); BASO % 0.2 % (0.0-1.0); EOS # 0.0 10*3/uL (0.0-0.4); EOS % 0.4 % (1.0-4.0); MEAN CELL VOLUME 101.0 fl (81.0-99.0); MEAN CORPUSCULAR HGB 32.8 pg (27.0-31.0); MEAN PLATELET VOLUME 8.7 fl (9.6-12.3); MONO # 0.7 10*3/uL (0.1-1.0); MONO % 6.7 % (3.0-9.0); NEUT # 6.5 10*3/uL (2.3-7.9); NEUT % 66.5 % (47.0-73.0); NUCLEATED RED BLOOD CELL 0.0 % (0.0-0.0); NUCLEATED RED BLOOD CELL 0.0 10*3/uL (0.0-0.0); PLATELET COUNT AUTOMATED 241 10*3/uL (130-400); RED CELL DISTRI WIDTH 13.5 % (0-14.5)
[2025-03-26 07:00] LABS: BUN 12 mg/dl (9-23); SGPT/ALT 23 U/L (5-49)
== END 2025-03-26 09:16 | disposition left against medical advice (07) ==
LOC: ED 06:08
PROVIDERS: Internal Medicine
DX: R10.11 Right upper quadrant pain (principal); R10.30 Lower abdominal pain, unspecified; F17.210 Nicotine dependence, cigarettes, uncomplicated; J44.9 Chronic obstructive pulmonary disease, unspecified; G43.909 Migraine, unspecified, not intractable, without status migrainosus; I25.2 Old myocardial infarction; M19.90 Unspecified osteoarthritis, unspecified site; Z86.711 Personal history of pulmonary embolism; Z90.89 Acquired absence of other organs; Z90.710 Acquired absence of both cervix and uterus; Z90.722 Acquired absence of ovaries, bilateral; Z98.890 Other specified postprocedural states; Z88.1 Allergy status to other antibiotic agents; Z88.2 Allergy status to sulfonamides; Z88.8 Allergy status to other drugs, medicaments and biological substances; Z91.0110 Allergy to milk products, unspecified

== ENCOUNTER 2025-03-29 13:59 | Emergency (ER) | payer OTHER ==
[~2025-03-29] VITALS: Ht 152.4 cm; Wt 38.6 kg
[2025-03-29] MEDS ORDERED: SODIUM CHLORIDE 0.9% 500 ML IV ONE (15:10)
[2025-03-29 15:39] LABS: MEAN CELL VOLUME 97.0 fl (81.0-99.0); MEAN CORPUSCULAR HGB 32.6 pg (27.0-31.0); MEAN PLATELET VOLUME 8.7 fl (9.6-12.3); NUCLEATED RED BLOOD CELL 0.0 % (0.0-0.0); NUCLEATED RED BLOOD CELL 0.0 10*3/uL (0.0-0.0); PLATELET COUNT AUTOMATED 279 10*3/uL (130-400); RED CELL DISTRI WIDTH 13.6 % (0-14.5)
[2025-03-29 15:41] LABS: MANUAL DIFF REFLEX YES
[2025-03-29] MEDS ORDERED: IOHEXOL 300 MG/ML 100 ML VIAL IV ONE (15:45)
[2025-03-29 16:00] LABS: PLATELET SUFFICIENCY NORMAL (NORMAL)
[2025-03-29] MEDS ORDERED: Ondansetron Hydrochloride 4 MG/2 ML VIAL IV ONE (16:00)
[2025-03-29 16:29] LABS: BUN 11 mg/dl (9-23); SGPT/ALT 22 U/L (5-49)
== END 2025-03-29 19:13 | disposition home or self-care (01) ==
LOC: ED 13:59
PROVIDERS: Student in an Organized Health Care Education/Training Program
DX: R11.2 Nausea with vomiting, unspecified (principal); J44.9 Chronic obstructive pulmonary disease, unspecified; G43.909 Migraine, unspecified, not intractable, without status migrainosus; I25.2 Old myocardial infarction; M19.90 Unspecified osteoarthritis, unspecified site; F17.210 Nicotine dependence, cigarettes, uncomplicated; Z90.710 Acquired absence of both cervix and uterus; Z98.890 Other specified postprocedural states; Z90.89 Acquired absence of other organs; Z88.1 Allergy status to other antibiotic agents; Z91.0110 Allergy to milk products, unspecified; Z88.8 Allergy status to other drugs, medicaments and biological substances

== ENCOUNTER 2025-03-30 11:52 | Emergency (ER) | payer OTHER | END 2025-03-30 12:35 | disposition home or self-care (01) | LOC: ED 11:52 | DX: K29.50 Unspecified chronic gastritis without bleeding (principal); F41.9 Anxiety disorder, unspecified; J44.9 Chronic obstructive pulmonary disease, unspecified; I25.10 Atherosclerotic heart disease of native coronary artery without angina pectoris; K21.9 Gastro-esophageal reflux disease without esophagitis; I10 Essential (primary) hypertension; M19.90 Unspecified osteoarthritis, unspecified site; I25.2 Old myocardial infarction; F17.210 Nicotine dependence, cigarettes, uncomplicated; Z90.89 Acquired absence of other organs; Z98.890 Other specified postprocedural states; Z86.718 Personal history of other venous thrombosis and embolism; Z88.1 Allergy status to other antibiotic agents; Z91.0110 Allergy to milk products, unspecified; Z88.8 Allergy status to other drugs, medicaments and biological substances ==

== ENCOUNTER 2025-03-31 09:46 | Emergency (ER) | payer OTHER ==
[~2025-03-31] VITALS: Wt 38.6 kg
[2025-03-31] MEDS ORDERED: ACETAMINOPHEN 325 MG TAB PO ONE (10:05)
== END 2025-03-31 10:03 | disposition home or self-care (01) ==
LOC: ED 09:46
DX: R11.2 Nausea with vomiting, unspecified (principal); R50.9 Fever, unspecified; F17.210 Nicotine dependence, cigarettes, uncomplicated; Z53.29 Procedure and treatment not carried out because of patient's decision for other reasons; Z98.890 Other specified postprocedural states; Z90.89 Acquired absence of other organs; Z88.1 Allergy status to other antibiotic agents; Z91.0110 Allergy to milk products, unspecified; Z88.8 Allergy status to other drugs, medicaments and biological substances

== ENCOUNTER 2025-04-01 16:34 | Emergency (ER) | payer OTHER | END 2025-04-01 16:51 | disposition home or self-care (01) | LOC: ED 16:34 | DX: G89.29 Other chronic pain (principal); F17.210 Nicotine dependence, cigarettes, uncomplicated; Z90.710 Acquired absence of both cervix and uterus; Z98.890 Other specified postprocedural states; Z90.89 Acquired absence of other organs; Z88.1 Allergy status to other antibiotic agents; Z88.2 Allergy status to sulfonamides; Z91.0110 Allergy to milk products, unspecified ==

== ENCOUNTER 2025-04-04 17:13 | Emergency (ER) | payer OTHER ==
[~2025-04-04] VITALS: Ht 152.4 cm; Wt 34.9 kg
[2025-04-04] MEDS ORDERED: SODIUM CHLORIDE 0.9% 1,000 ML IV ONE (17:45)
[2025-04-04 18:01] LABS: BASO # 0.0 10*3/uL (0.0-0.1); BASO % 0.1 % (0.0-1.0); EOS # 0.0 10*3/uL (0.0-0.4); EOS % 0.4 % (1.0-4.0); MEAN CELL VOLUME 100.3 fl (81.0-99.0); MEAN CORPUSCULAR HGB 33.0 pg (27.0-31.0); MEAN PLATELET VOLUME 8.6 fl (9.6-12.3); MONO # 0.5 10*3/uL (0.1-1.0); MONO % 5.8 % (3.0-9.0); NEUT # 6.5 10*3/uL (2.3-7.9); NEUT % 81.3 % (47.0-73.0); NUCLEATED RED BLOOD CELL 0.0 % (0.0-0.0); NUCLEATED RED BLOOD CELL 0.0 10*3/uL (0.0-0.0); PLATELET COUNT AUTOMATED 206 10*3/uL (130-400); RED CELL DISTRI WIDTH 13.6 % (0-14.5)
[2025-04-04 18:20] LABS: BUN 7 mg/dl (9-23)
[2025-04-04 19:13] LABS: BILIRUBIN Negative (Negative); BLOOD Negative (Negative); CLARITY Clear (Clear); COLOR Yellow (Yellow); KETONE Negative (Negative); LEUKO ESTERASE Trace (Negative); NITRITE Negative (Negative); PH 5.0 (4.5-8.0); SPECIFIC GRAVITY 1.010 (1.001-1.030); UROBILINOGEN 0.2 E.U./dl (0.0-1.0)
[2025-04-04 19:22] LABS: BACTERIA 2+
[2025-04-04] MEDS ORDERED: Nitrofurantoin Monohydrate/N 100 MG CAP PO ONE (20:20)
[2025-04-04] MEDS ORDERED: MACROBID100 M1 PO (20:26)
== END 2025-04-04 20:44 | disposition home or self-care (01) ==
LOC: ED 17:13
PROVIDERS: Student in an Organized Health Care Education/Training Program
DX: R00.2 Palpitations (principal); Z66 Do not resuscitate; J44.9 Chronic obstructive pulmonary disease, unspecified; G43.909 Migraine, unspecified, not intractable, without status migrainosus; I25.2 Old myocardial infarction; M19.90 Unspecified osteoarthritis, unspecified site; Z90.89 Acquired absence of other organs; Z88.1 Allergy status to other antibiotic agents; Z88.2 Allergy status to sulfonamides; Z91.0110 Allergy to milk products, unspecified; Z88.8 Allergy status to other drugs, medicaments and biological substances; Z79.899 Other long term (current) drug therapy